=== PATIENT | female | born 1945 | race Hispanic/Latino ===

== ENCOUNTER 2017-09-28 13:01 | Inpatient (IN) | payer MEDICARE, OTHER ==
[2017-09-28] MEDS ORDERED: PEPCID IV ONE (13:50)
[2017-09-28] MEDS ORDERED: NACL 0.9% 1000 ML 1,000 ML IV ONE ×2 (13:50→18:03)
[2017-09-28] MEDS ORDERED: ZOFRAN IV ONE (13:50)
[2017-09-28] MEDS ORDERED: TORADOL IV ONE (13:50)
--- NOTE | 2017-09-28 13:52 | Emergency Department Report ---
Blank Doc - Documentation Documentation: Patient is a 72-year-old female is presented with multiple complaints. The main complaint is that for the past 3 days patient has felt weak and dizzy fatigue with diarrhea and left lower quadrant tenderness. Patient also has some dysuria and foul to her urine as well. Patient also is complaining of some left hip pain and lower back pain after a fall from the 2 days ago. Patient denies any fevers chills or vomiting. Brief physical exam patient does have so left lower quadrant tenderness as well as generalized tenderness to the lumbar spine and left hip. Patient will be moved to treatment room for IV fluids meds for symptomatic relief and the laboratory and imaging studies. She'll be reassessed. Me
[2017-09-28 14:43] LABS: Basophils # (Auto) 0.1 K/mm3 (0.0-0.1); Basophils % (Auto) 0.5 % (0.0-1.8); Eosinophils # (Auto) 0.2 K/mm3 (0.0-0.4); Eosinophils % (Auto) 1.5 % (0.0-4.3); Hematocrit 33.5 % (30.3-42.9); Hemoglobin 10.8 gm/dl (10.1-14.3); Lymphocytes # (Auto) 1.3 K/mm3 (1.2-5.4); Lymphocytes % (Auto) 11.1 % (13.4-35.0); Mean Corpuscular HGB Conc 32 % (30-34); Mean Corpuscular Hemoglobin 29 pg (28-32); Mean Corpuscular Volume 90 fl (79-97); Monocytes # (Auto) 1.2 K/mm3 (0.0-0.8); Platelet Count 263 K/mm3 (140-440); Red Blood Count 3.73 M/mm3 (3.65-5.03); Red Cell Distribution Width 13.7 % (13.2-15.2)
[2017-09-28 14:53] LABS: INR 0.96 (0.87-1.13)
[2017-09-28 14:54] LABS: Partial Thromboplastin Time 27.7 Sec. (24.2-36.6)
[2017-09-28 15:04] LABS: Albumin 3.3 g/dL (3.9-5); Calcium 9.7 mg/dL (8.4-10.2)
--- NOTE | 2017-09-28 15:07 | Cat Scan Report ---
FINAL REPORT PROCEDURE: CT ABDOMEN PELVIS WO CON TECHNIQUE: Computerized axial tomography of the abdomen and pelvis was performed without intravenous contrast. This study is performed without intravascular contrast material and its sensitivity for abdominal and pelvic pathology, including neoplasms, inflammation, abscess, free fluid, thrombosis, arterial dissection and infarction, is reduced compared with a contrast enhanced study. HISTORY: diarrhea, also fall with left hip and back pain COMPARISON: No prior studies are available for comparison. FINDINGS: Lower Lung conner: Calcifications, atherosclerosis visualized in the coronary arteries. There may be coronary artery stents in place. Correlation with prior interventional procedure history recommended. Linear bands of increased density seen in the lung bases suggesting minimal atelectasis. Lung bases otherwise are unremarkable. Upper Abdomen: Calcified granuloma seen in the liver which is otherwise unremarkable. Gallbladder is surgically absent. The adrenal glands, and the spleen are unremarkable. The pancreas appears atrophied otherwise is unremarkable. Kidneys, Ureters and Urinary bladder: Low-density nodules project from the renal cortex of the left kidney which likely represent cysts although not confirmed with this exam. These measure up to 2.3 centimeters. This could be confirmed with ultrasound clinically indicated. No hydronephrosis. Renal arterial calcifications are visualized. No definite renal calculi are seen. No ureteral calculi are seen. Urinary bladder is incompletely filled. No gross abnormality of the bladder is seen. Retroperitoneum: Atherosclerotic changes are seen in the abdominal aorta. No aneurysm is visualized. Nonspecific subcentimeter lymph nodes are seen in the retroperitoneum. No pathologically enlarged lymph nodes are identified. Bowel: No evidence of bowel obstruction or ascites. There is no free intraperitoneal gas. The jenkins of the descending colon and proximal sigmoid colon are minimally prominent. Possibly minimally thickened. I cannot exclude minimal colitis. Bowel loops otherwise are unremarkable. Small umbilical hernia containing adipose tissue is visualized. No herniated loops of bowel are seen. The appendix is not visualized. Reproductive organs: Uterus and adnexa show no focal abnormalities. Other: Mild to moderate lumbar scoliosis convex the right visualized. Moderate diffuse degenerative disc disease seen throughout the lumbar spine. Moderate facet arthritis visualized in the lower lumbar spine. No acute bone abnormalities are identified. IMPRESSION: Atherosclerosis coronary arteries. There may be coronary artery stents in place. Correlation with prior interventional procedure history recommended. Prior granulomatous disease. Mild prominence jenkins of the descending colon and proximal sigmoid colon. I cannot exclude mild nonspecific colitis. Bowel loops otherwise unremarkable. Prior cholecystectomy. Pancreas is atrophied otherwise unremarkable. Low-density nodules seen projecting from the left kidney likely representing renal cortical cysts although not confirmed by this exam. If clinically indicated renal ultrasound could be performed for further evaluation. Small umbilical hernia as described. Lumbar scoliosis, degenerative disc disease and facet arthritis as described above. No acute bony abnormalities are seen.
[2017-09-28 16:03] LABS: Bacteria,Urine 4+ /HPF (Negative); Bilirubin,Urine NEG (Negative); Blood,Urine SM (Negative); Color,Urine Yellow (Yellow); Mucus,Urine FEW /HPF; Urobilinogen,Urine < 2.0 mg/dL (<2.0); WBC,Urine > 182.0 /HPF (0.0-6.0)
--- NOTE | 2017-09-28 17:24 | XRay Report ---
FINAL REPORT PROCEDURE: XR CHEST 1V AP TECHNIQUE: Chest radiograph anteroposterior view. CPT 05869 HISTORY: elevated glucose. weak COMPARISON: No prior studies are available for comparison. FINDINGS: Heart: Normal size. Mediastinum/Vessels: Normal. Lungs/Pleural space: Right diaphragm is mildly elevated. A few linear bands of increased density seen in the lower 3rd of the left lung suggesting minimal atelectasis. No focal infiltrates masses or effusions are identified.. Bony thorax: No acute osseous abnormality. Life support devices: None. IMPRESSION: Minimal atelectasis visualized on the left. Mild elevation right diaphragm otherwise negative exam..
[2017-09-28] MEDS ORDERED: HumuLIN R IV ONE ×2 (17:38→18:50)
[2017-09-28] MEDS ORDERED: NACL 0.9% 1000 ML 1,000 ML ONE (17:55)
[2017-09-28] MEDS ORDERED: APRESOLINE IV ONE (18:50)
[2017-09-28] MEDS ORDERED: APRESOLINE ONE (18:52)
--- NOTE | 2017-09-28 18:57 | Emergency Department Report ---
- General Chief complaint: Pain General Stated complaint: GENERALIZED WEAKNESS Time Seen by Provider: 09/28/17 13:36 Source: patient, family Mode of arrival: Wheelchair Limitations: No Limitations - History of Present Illness Initial comments: 72-year-old woman presents with multiple complaints, but primarily with progressive weakness over the past couple weeks, which is generalized and which caused her to fall approximately a week ago, but with no acute injury, and no focal neurologic deficits, with weakness remaining unchanged but generally progressive. She has also had some lower abdominal pain as well, has vomited several times over the past couple days, but no particular diarrhea. Patient has felt warm, but she has not been febrile, and not flushed. She has not felt lightheaded at rest, but does occasionally get lightheaded when she changes positions. She is had decreased appetite, has not been drinking as well, and has been taking boost for the past several days in order to increase her nutrition, although up until today she had been eating fairly well, and enjoying what she ate. She is not having any chest pain, and abdominal pain is lower, and some perhaps in the left lower abdomen. Discomfort is local, moderate, aching, constant, does not appear to radiate. Past medical history significant for insulin-dependent dependent diabetes, prior hypertension, no history of lung disease, no cardiac disease, no prior strokes. Severity scale (0 -10): 6 - Related Data Home Medications Medication Instructions Recorded Confirmed Last Taken Insulin Lispro Protamin/Lispro 30 unit SQ AC 11/19/13 11/19/13 11/18/13 [HumaLOG Mix 75-25 Kwikpen] Metoprolol [Lopressor TAB] 25 mg PO DAILY 11/19/13 11/19/13 11/18/13 Olmesartan/Hydrochlorothiazide 1 tab PO QDAY 11/19/13 11/19/13 11/18/13 [Benicar HCT 20-12.5 mg] Ranolazine [Ranexa] 500 mg PO BID 11/19/13 11/19/13 11/18/13 Previous Rx's Medication Instructions Recorded Last Taken Type Aspirin EC [Aspirin Enteric Coated 325 mg PO QDAY #30 tablet 11/19/13 Unknown Rx TAB] Sulfamethoxazole/Trimethoprim 1 each PO BID #14 tablet 03/06/15 Unknown Rx [Bactrim DS TAB] Allergies Allergy/AdvReac Type Severity Reaction Status Date / Time cephalexin monohydrate Allergy Swelling Verified 03/06/15 12:17 [From Keflex] codeine Allergy Vomiting Verified 03/06/15 12:17 all narcotics Allergy Vomiting Uncoded 03/06/15 12:17 Contrast Dye AdvReac Swelling Uncoded 09/28/17 13:19 ED Review of Systems ROS: Stated complaint: GENERALIZED WEAKNESS Other details as noted in HPI Comment: All other systems reviewed and negative Constitutional: diaphoresis, weakness. denies: chills (questionable), fever Respiratory: denies: cough, orthopnea, shortness of breath Cardiovascular: denies: chest pain Endocrine: increased urine. denies: excessive sweating, increased hunger ( decreased), increased thirst Gastrointestinal: abdominal pain (lower abdomen), nausea, vomiting (today). denies: diarrhea Genitourinary: frequency Musculoskeletal: back pain Skin: denies: rash, change in color Neurological: headache, weakness, other (diabetic neuropathy, lower extremities , chronic). denies: numbness, paresthesias Psychiatric: denies: anxiety, depression, suicidal thoughts Hematological/Lymphatic: denies: easy bleeding, easy bruising ED Past Medical Hx - Past Medical History Hx Hypertension: Yes Hx Congestive Heart Failure: No Hx Diabetes: Yes Hx Asthma: Yes Hx COPD: No Additional medical history: CHARCOT'S DISEASE - Surgical History Hx Cholecystectomy: Yes Hx Appendectomy: Yes Additional Surgical History: tubal ligation bilat carpal tunnel back/neck surgery eye surgery foot surgery - Social History Smoking Status: Never Smoker Substance Use Type: None - Medications Home Medications: Home Medications Medication Instructions Recorded Confirmed Last Taken Type Aspirin EC [Aspirin Enteric Coated 325 mg PO QDAY #30 tablet 11/19/13 Unknown Rx TAB] Insulin Lispro Protamin/Lispro 30 unit SQ AC 11/19/13 11/19/13 11/18/13 History [HumaLOG Mix 75-25 Kwikpen] Metoprolol [Lopressor TAB] 25 mg PO DAILY 11/19/13 11/19/13 11/18/13 History Olmesartan/Hydrochlorothiazide 1 tab PO QDAY 11/19/13 11/19/13 11/18/13 History [Benicar HCT 20-12.5 mg] Ranolazine [Ranexa] 500 mg PO BID 11/19/13 11/19/13 11/18/13 History Sulfamethoxazole/Trimethoprim 1 each PO BID #14 tablet 03/06/15 Unknown Rx [Bactrim DS TAB] ED Physical Exam - General Limitations: No Limitations General appearance: alert, in no apparent distress - Head Head exam: Present: atraumatic, normocephalic - Eye Eye exam: Present: PERRL, EOMI - ENT ENT exam: Present: mucous membranes dry - Neck Neck exam: Present: normal inspection. Absent: tenderness - Respiratory Respiratory exam: Present: normal lung sounds bilaterally. Absent: rales, rhonchi - Cardiovascular Cardiovascular Exam: Present: regular rate, normal heart sounds - GI/Abdominal GI/Abdominal exam: Present: soft, tenderness (moderate, general to palpation, mildly localized, left lower quadrant), normal bowel sounds, other (obese, somewhat pendulous abdomen). Absent: guarding, rebound - Rectal Rectal exam: Present: deferred - Extremities Exam Extremities exam: Present: normal inspection, full ROM. Absent: pedal edema - Neurological Exam Neurological exam: Present: alert, oriented X3, CN II-XII intact, other (normal finger to nose). Absent: motor sensory deficit - Psychiatric Psychiatric exam: Present: normal affect, normal mood - Skin Skin exam: Present: warm, dry - Level of Consciousness 1a. Level of Consciousness: alert - LOC Questions 1b. LOC Questions: answers correctly - LOC Command 1c. LOC Commands: performs tasks correctly - Best Gaze 2. Best Gaze: normal - Visual 3. Visual: no visual loss - Facial Palsy 4. Facial Palsy: normal symmetrical movement - Motor Arm 5b. Motor Arm Right: no drift 5a. Motor Arm Left: no drift - Motor Leg 6a. Motor Leg Left: no drift 6b. Motor Leg Right: no drift - Limb Ataxia 7. Limb Ataxia: absent - Sensory 8. Sensory: normal - Best Language 9. Best Language: no aphasia - Dysarthria 10. Dysarthria: normal - Extinction and Inattention 11. Extinction/Inattention: no abnormality - Scoring Total Score: 0 Stroke Severity: No Stroke Symptoms ED Course Vital Signs 09/28/17 09/28/17 09/28/17 13:19 15:13 18:57 Temperature 36.9 C 36.7 C 36.6 C Pulse Rate 94 H 81 92 H Respiratory 16 16 18 Rate Blood Pressure 172/66 Blood Pressure 167/59 190/70 [Left] O2 Sat by Pulse 98 98 98 Oximetry ED Medical Decision Making - Lab Data Result diagrams: 09/28/17 13:49 09/28/17 13:49 - Medical Decision Making Patient has uncontrolled hyperglycemia, with a glucose of 792, and significant urinary tract infection with pyuria with clumping, as well as positive bacteria , and with secondary compensatory changes on laboratory evaluations, and moderately elevated lactate level, suggestive of urinary tract infection, and also early signs of sepsis with elevated lactate level. She is not acidotic, has a stable bicarbonate, the clon hospitalization for treatment of her acute infection, and stabilization of her severe hyperglycemia. Patient was treated with IV fluids, this did little to bring her sugar down, and on recheck was 750 , and insulin given by IV bolus, and plans were made to admit patient. - Differential Diagnosis hyperglycemia, sepsis, metabolic abnormality Critical Care Time: Yes Critical care attestation.: If time is entered above; I have spent that time in minutes in the direct care of this critically ill patient, excluding procedure time. Critical Care Time: 60 minutes of critical care time was provided in assessing and stabilizing this patient with severe hyperglycemia, significant findings of urinary tract infection, and early signs of sepsis with elevated white count, IV fluid for hydration, initiation of emergency intravenous insulin, and plans for admission. No billable procedures were performed during this encounter ED Disposition Clinical Impression: Hyperglycemia due to type 2 diabetes mellitus, Urinary tract infection, Sepsis Disposition: OP ADMIT IP TO THIS HOSP Is pt being admited?: Yes Does the pt Need Aspirin: No Condition: Stable Instructions: Diabetes Mellitus Type 2 in Adults (ED) Referrals: PRIMARY MD WILBER [Primary Care Provider] - 3-5 Days Time of Disposition: 19:10
[2017-09-28] MEDS ORDERED: ZOSYN/NS 4.5GM/100ML 4.5 GM/100 ML VIAL IV SCH (19:00)
[2017-09-28 19:31] LABS: Calcium 9.7 mg/dL (8.4-10.2)
[2017-09-28] MEDS ORDERED: D50W (25GM) Syringe IV PRN ×2 (20:48→22:18)
[2017-09-28] MEDS ORDERED: HumuLIN R 100 UNITS in NACL 0.9% 99 ML IV SCH ×2 (21:00→23:00)
[2017-09-28 21:40] LABS: Calcium 9.7 mg/dL (8.4-10.2)
[2017-09-28] MEDS: NACL 0.9% 1000 ML 1,000 ML IV SCH (21:47)
[2017-09-28] MEDS ORDERED: SODIUM CHLORIDE FLUSH SYRINGE 10 ML IV PRN (22:16)
[2017-09-28] MEDS ORDERED: ZOFRAN IV PRN (22:16)
[2017-09-28] MEDS ORDERED: MORPHINE IV PRN (22:16)
[2017-09-28] MEDS ORDERED: PHENERGAN PR PRN (22:16)
--- NOTE | 2017-09-28 22:22 | Event Note ---
Date: 09/28/17 See dictated history and physical in the report section Hyperosmolar nonketotic state in diabetes Urinary tract infection Noncompliance
[2017-09-28] MEDS ORDERED: KCL 10MEQ/100ML 10 MEQ/100 ML BAG IV SCH ×2 (23:00)
[2017-09-28] MEDS ORDERED: D5W/0.45% NACL/KCL 20 MEQ 20 MEQ/1,000 ML BAG IV SCH (23:00)
--- NOTE | 2017-09-28 23:49 | History and Physical Report ---
CHIEF COMPLAINT: Generalized weakness and pain all over, 2 weeks. HISTORY OF PRESENT ILLNESS: A 72-year-old female presents with weakness over the past couple of weeks, which is generalized and caused her to fall. No acute injury. The patient has been feeling very weak and also lower abdominal pain. Vomited several times over the past couple of days and no diarrhea. The patient also has decreased appetite and not taking her insulin regularly. No chest pain, no shortness of breath. No recent travel. In summary, the patient has progressive weakness and vomiting for the last couple of days and decreased appetite. PAST MEDICAL HISTORY: Significant for insulin-dependent diabetes, hypertension. Also, asthma, Charcot disease. PAST SURGICAL HISTORY: Appendectomy, tubal ligation, bilateral carpal tunnel surgery, eye surgery and foot surgery. SOCIAL HISTORY: Does not smoke. No alcohol, no recreational drugs. FAMILY HISTORY: Significant for hypertension. REVIEW OF SYSTEMS: Significant for feeling weak and vomiting several times and has 1 fall. Otherwise, review of systems unremarkable. The patient also has dysuria and suprapubic discomfort. PHYSICAL EXAMINATION: GENERAL: On examination, elderly female, cooperative during examination. Alert and oriented. VITAL SIGNS: Blood pressure is 167/59, temperature is 98.4, pulse is 94, and respirations are 16. HEENT: Unremarkable except for dry mucous membranes. NECK: Supple, no lymphadenopathy, no thyromegaly. LUNGS: Clear to auscultation and percussion. Good air entry. CARDIOVASCULAR: S1, S2 heard. No gallop, no murmur, no rub. Apical impulse in left fifth intercostal space and midclavicular line. ABDOMEN: Slightly tender over the suprapubic region. Otherwise, normal bowel sounds. No guarding, no rigidity. Hernial orifices are normal. EXTREMITIES: Good pedal pulses. No pedal edema. CENTRAL NERVOUS SYSTEM: Alert and oriented x 4, nonfocal exam. LABORATORY DATA: Significant for white count of 12,000, H and H are 10.8 and 33.5, and platelet count is 263,000. Sodium is 124, BUN and creatinine are 46 and 1.3, potassium is 4.7, chloride is 83.6, and glucose is 792. Hemoglobin A1c is 9.1, magnesium is 2.2, slightly low; and albumin is 3.3, slightly low. Urine shows more than 182 cells. Abdominal CAT scan shows atherosclerosis and mild prominent jenkins of the descending colon and proximal sigmoid colon, may be nonspecific colitis. Prior cholecystectomy. Pancreas is atrophied, otherwise unremarkable. Low density nodules projecting from the left kidney, likely representing renal cortical cysts. Small umbilical hernia, lumbar scoliosis and degenerative disk disease. ASSESSMENT AND PLAN: 1. Hyperosmolar nonketotic state and diabetes. The patient started on IV insulin, IV fluids, frequent Accu-Cheks. Monitor glucose closely. The patient is kept n.p.o. 2. Hypertension. Continue metoprolol and Benicar. 3. Hyponatremia secondary to high blood glucose levels, should correct with IV fluids and correction of the blood glucose levels. 4. Acute kidney injury secondary to volume depletion. The patient is getting IV fluids. BUN and creatinine should cut back to normal with IV fluids. Nephrology consult if necessary. At this point, it is not necessary. Lactic acid level is normal. 5. Urinary tract infection. The patient has severe acute cystitis and possible bacteremia. The patient initiated on IV Rocephin 2 gm IV piggyback q.24 hours pending cultures. 6. Hyperkalemia, should correct with IV insulin and IV fluids. 7. Coronary artery disease. Continue aspirin. 8. Deep venous thrombosis prophylaxis, heparin 5000 q.12 hours. CRITICAL CARE STATEMENT: The high probability of a clinically significant sudden or life-threatening deterioration of the pulmonary, cardiac and renal systems required my full and direct attention, intervention, and personal management. The aggregate critical care time was 45 minutes. This time is in addition to time spent performing reported procedures, but includes the followin. Data review and interpretation. 2. The patient assessment and monitoring of vital signs. 3. Documentation. 4. Medication orders and management. JOB# [id number] JOSE LUIS/SWEETIE
[2017-09-29 00:17] LABS: Calcium 9.7 mg/dL (8.4-10.2)
[2017-09-29] MEDS: NACL 0.9% 1000 ML 1,000 ML IV SCH (00:42)
[2017-09-29 00:54] LABS: Calcium 9.5 mg/dL (8.4-10.2)
[2017-09-29] MEDS ORDERED: APRESOLINE IV PRN (02:55)
[2017-09-29 04:36] LABS: Calcium 9.4 mg/dL (8.4-10.2)
--- NOTE | 2017-09-29 08:34 | Consultation ---
History of Present Illness Consult date: 09/29/17 Requesting physician: CALE DUNN Reason for consult: other (Hyperosmolar non-ketotic state on insulin infusion, UTI with lactic acidosis) History of present illness: 72-year-old woman presents with multiple complaints, but primarily with progressive weakness over the past couple weeks, which is generalized and which caused her to fall approximately a week ago, but with no acute injury, and no focal neurologic deficits, with weakness remaining unchanged but generally progressive. She has also had some lower abdominal pain as well, has vomited several times over the past couple days, but no particular diarrhea. Patient has felt warm, but she has not been febrile, and not flushed. She has not felt lightheaded at rest, but does occasionally get lightheaded when she changes positions. She is had decreased appetite, has not been drinking as well. She is not having any chest pain, and abdominal pain is lower, and some perhaps in the left lower abdomen. She was noted to have diabetic ketoacidosis and UTI. She was admitted to the ICU on an insulin infusion. We have been consulted for critical care. Patient was seen and examined. Vitals, labs, medications, chart were reviewed. She feels better, still has some nausea and is currently on 2units of insulin with her last accucheck of 160. Anion gap is 12. Patient was discussed in ICU-IDT rounds. Review of systems Comment: All other systems reviewed and negative Constitutional: diaphoresis, weakness. denies: chills (questionable), fever Respiratory: denies: cough, orthopnea, shortness of breath Cardiovascular: denies: chest pain Endocrine: increased urine. denies: excessive sweating, increased hunger ( decreased), increased thirst Gastrointestinal: abdominal pain (lower abdomen), nausea, vomiting (today). denies: diarrhea Genitourinary: frequency Musculoskeletal: back pain Skin: denies: rash, change in color Neurological: headache, weakness, other (diabetic neuropathy, lower extremities , chronic). denies: numbness, paresthesias Psychiatric: denies: anxiety, depression, suicidal thoughts Hematological/Lymphatic: denies: easy bleeding, easy bruising Past History Past Medical History: diabetes, hypertension Past Surgical History: Other (Spinal fusion surgery) Social history: lives with family (grandson), other (does not smoke or drink alcohol) Medications and Allergies Allergies Allergy/AdvReac Type Severity Reaction Status Date / Time cephalexin monohydrate Allergy Swelling Verified 03/06/15 12:17 [From Keflex] codeine Allergy Vomiting Verified 03/06/15 12:17 all narcotics Allergy Vomiting Uncoded 03/06/15 12:17 Contrast Dye AdvReac Swelling Uncoded 09/28/17 13:19 Home Medications Medication Instructions Recorded Confirmed Last Taken Type Metoprolol [Lopressor TAB] 25 mg PO DAILY 11/19/13 09/28/17 11/18/13 History Ranolazine [Ranexa] 500 mg PO BID 11/19/13 09/28/17 11/18/13 History Aspirin EC [Aspirin Enteric Coated 325 mg PO DAILY 09/28/17 09/28/17 Unknown History TAB] Insulin Lispro Protamin/Lispro 30 units SQ AC 09/28/17 09/28/17 Unknown History [HumaLOG Mix 75-25 Kwikpen] Olmesartan/Hydrochlorothiazide 1 mg PO DAILY 09/28/17 09/28/17 Unknown History [Benicar HCT 20-12.5 mg] Active Meds: Active Medications Acetaminophen (Tylenol) 650 mg PO Q4H PRN PRN Reason: Pain MILD(1-3)/Fever >100.5/BROWN Dextrose (D50w (25gm) Syringe) 0 ml IV PRN PRN PRN Reason: Hypoglycemia Heparin Sodium (Porcine) (Heparin) 5,000 unit SUB-Q Q12HR LORENA Last Admin: 09/29/17 00:00 Dose: 5,000 unit Hydralazine HCl (Apresoline) 5 mg IV Q6HR PRN PRN Reason: b/p Sodium Chloride (Nacl 0.9% 1000 Ml) 1,000 mls @ 250 mls/hr IV DIRECT LORENA Last Admin: 09/29/17 00:42 Dose: 250 mls/hr Potassium Chloride/Dextrose/Sod Cl (D5w/0.45% Nacl/Kcl 20 Meq) 20 meq in 1,000 mls @ 125 mls/hr IV DIRECT LORENA Last Admin: 09/29/17 01:57 Dose: 125 mls/hr Insulin Human Regular 100 (units/ Sodium Chloride) 100 mls @ 1 mls/hr IV TITR LORENA; Protocol Last Titration: 09/29/17 07:00 Dose: 2.5 units/hr, 2.5 mls/hr Levofloxacin/Dextrose (Levaquin 250mg/50ml) 250 mg in 50 mls @ 50 mls/hr IV Q24HR LORENA Morphine Sulfate (Morphine) 2 mg IV Q4H PRN PRN Reason: Pain, Moderate (4-6) Ondansetron HCl (Zofran) 4 mg IV Q8H PRN PRN Reason: Nausea And Vomiting Promethazine HCl (Phenergan) 25 mg WV Q6H PRN PRN Reason: N/V IF NPO AND NO IV ACCESS Sodium Chloride (Sodium Chloride Flush Syringe 10 Ml) 10 ml IV BID LORENA Sodium Chloride (Sodium Chloride Flush Syringe 10 Ml) 10 ml IV PRN PRN PRN Reason: LINE FLUSH Physical Examination Vital signs: Vital Signs Temp Pulse Resp BP Pulse Ox 98.4 F 94 H 16 172/66 98 09/28/17 13:19 09/28/17 13:19 09/28/17 13:19 09/28/17 13:19 09/28/17 13:19 Results - Laboratory Findings CBC and BMP: 09/28/17 13:49 09/29/17 13:31 PT/INR, D-dimer PT 13.3 Sec. (12.2-14.9) 09/28/17 13:49 INR 0.96 (0.87-1.13) 09/28/17 13:49 Abnormal lab findings: Abnormal Labs 09/28/17 09/28/17 09/28/17 13:49 13:49 14:35 WBC 12.0 H Lymph % (Auto) 11.1 L [place] % (Auto) 10.0 H Al[place]alfa # 1.2 H Seg Neutrophils % 76.9 H Seg Neutrophils # 9.2 H Sodium 124 L Potassium Chloride 83.6 L BUN 46 H Creatinine 1.3 H Glucose 792 H* POC Glucose Hemoglobin A1c 9.1 H Phosphorus Albumin 3.3 L Urine WBC (Auto) 09/28/17 09/28/17 09/28/17 17:52 17:55 21:08 WBC Lymph % (Auto) [place]alfa % (Auto) Al[place]alfa # Seg Neutrophils % Seg Neutrophils # Sodium 125 L Potassium 5.4 H Chloride 83.4 L BUN 47 H Creatinine 1.3 H Glucose 797 H* POC Glucose > 500 H Hemoglobin A1c Phosphorus 2.20 L Albumin Urine WBC (Auto) 09/28/17 09/28/17 09/28/17 21:08 22:40 23:09 WBC Lymph % (Auto) [place]alfa % (Auto) Al[place]alfa # Seg Neutrophils % Seg Neutrophils # Sodium 135 L D 136 L Potassium Chloride 94.8 L 97.3 L BUN 42 H 39 H Creatinine Glucose 377 H 281 H POC Glucose 316 H Hemoglobin A1c Phosphorus 1.90 L Albumin Urine WBC (Auto) 09/28/17 09/28/17 09/29/17 23:47 Unknown 00:25 WBC Lymph % (Auto) [place]alfa % (Auto) Al[place]alfa # Seg Neutrophils % Seg Neutrophils # Sodium 135 L Potassium 3.5 L Chloride 96.6 L BUN 38 H Creatinine Glucose 184 H POC Glucose 288 H Hemoglobin A1c Phosphorus Albumin Urine WBC (Auto) > 182.0 H 09/29/17 09/29/17 09/29/17 01:16 02:13 03:19 WBC Lymph % (Auto) Al[place]alfa % (Auto) Alfalfa # Seg Neutrophils % Seg Neutrophils # Sodium Potassium Chloride BUN Creatinine Glucose POC Glucose 198 H 119 H 117 H Hemoglobin A1c Phosphorus Albumin Urine WBC (Auto) 09/29/17 09/29/17 09/29/17 03:37 04:40 05:09 WBC Lymph % (Auto) [place]alfa % (Auto) Al[place]alfa # Seg Neutrophils % Seg Neutrophils # Sodium Potassium Chloride BUN 35 H Creatinine Glucose 107 H POC Glucose 149 H 177 H Hemoglobin A1c Phosphorus Albumin Urine WBC (Auto) 09/29/17 09/29/17 06:28 07:08 WBC Lymph % (Auto) Alfalfa % (Auto) Alfalfa # Seg Neutrophils % Seg Neutrophils # Sodium Potassium Chloride BUN Creatinine Glucose POC Glucose 164 H 173 H Hemoglobin A1c Phosphorus Albumin Urine WBC (Auto) - Diagnostic Findings Chest x-ray: image reviewed (Left lung atelectasis) Assessment and Plan UTI Hyperosmolar non ketotic state Type 2 DM requiring insulin, poorly controlled HbA1C 9 Morbid obesity Atelectasis
[2017-09-29 08:50] LABS: Calcium 9.5 mg/dL (8.4-10.2)
[2017-09-29] MEDS: HumaLOG SUB-Q SCH ×4 (09:00→22:40)
[2017-09-29] MEDS ORDERED: ROCEPHIN/NS 2 GM/100 ML 2 GM/100 ML BAG IV SCH (10:00)
[2017-09-29] MEDS ORDERED: LEVAQUIN 250MG/50ML 250 MG/50 ML BAG IV SCH (10:00)
[2017-09-29] MEDS: LEVAQUIN PO SCH (10:40)
[2017-09-29] MEDS: HEPARIN SUB-Q SCH ×3 (10:40→22:40)
[2017-09-29] MEDS: SODIUM CHLORIDE FLUSH SYRINGE 10 ML IV SCH ×2 (10:43→22:40)
[2017-09-29] MEDS: TYLENOL PO PRN ×2 (10:43→22:44)
[2017-09-29 14:49] LABS: Calcium 9.4 mg/dL (8.4-10.2)
--- NOTE | 2017-09-29 14:51 | Progress Note ---
Assessment and Plan Assessment and plan: 72F who pw weakness x 1 week, so weak that she fell, lower abdominal pain, poor po intake, admitted non adherence with insulin UTI Continue abx, fup urine cx HHNK/ uncontrolled type 2 iddm a1c 9.4 Sp insulin gtt, now back on sq insulins HTN Hold haydee and hct, given chandrika Hyponatremia, Hyperkalemia continue IVF and insulins, improved CHANDRIKA-vasomotor nephropathy Improving with IVF fluids CAD Resume ranexa and metoprolol History Interval history: she denies sob, fever or chills no n/v/d suprapubic pain is resolved fatigue is improved Hospitalist Physical - Constitutional Vitals: Temp Pulse Resp BP Pulse Ox 99.1 F 102 H 16 119/97 98 09/29/17 12:00 09/29/17 13:01 09/29/17 13:01 09/29/17 13:01 09/29/17 13:01 General appearance: Present: no acute distress - EENT Eyes: Present: PERRL ENT: hearing intact - Neck Neck: Present: supple - Respiratory Respiratory effort: normal Respiratory: bilateral: CTA - Cardiovascular Rhythm: regular Heart Sounds: Present: S1 & S2 - Extremities Extremities: no ischemia, No edema Peripheral Pulses: within normal limits - Abdominal General gastrointestinal: soft, non-tender - Integumentary Integumentary: Present: clear, warm, dry - Psychiatric Psychiatric: appropriate mood/affect, intact judgment & insight - Neurologic Neurologic: CNII-XII intact, moves all extremities Results - Labs CBC & Chem 7: 09/28/17 13:49 09/29/17 21:09 Labs: Laboratory Last Values WBC 12.0 K/mm3 (4.5-11.0) H 09/28/17 13:49 RBC 3.73 M/mm3 (3.65-5.03) 09/28/17 13:49 Hgb 10.8 gm/dl (10.1-14.3) 09/28/17 13:49 Hct 33.5 % (30.3-42.9) 09/28/17 13:49 MCV 90 fl (79-97) 09/28/17 13:49 MCH 29 pg (28-32) 09/28/17 13:49 MCHC 32 % (30-34) 09/28/17 13:49 RDW 13.7 % (13.2-15.2) 09/28/17 13:49 Plt Count 263 K/mm3 (140-440) 09/28/17 13:49 Lymph % (Auto) 11.1 % (13.4-35.0) L 09/28/17 13:49 [place] % (Auto) 10.0 % (0.0-7.3) H 09/28/17 13:49 Eos % (Auto) 1.5 % (0.0-4.3) 09/28/17 13:49 Baso % (Auto) 0.5 % (0.0-1.8) 09/28/17 13:49 Lymph # 1.3 K/mm3 (1.2-5.4) 09/28/17 13:49 [place] # 1.2 K/mm3 (0.0-0.8) H 09/28/17 13:49 Eos # 0.2 K/mm3 (0.0-0.4) 09/28/17 13:49 Baso # 0.1 K/mm3 (0.0-0.1) 09/28/17 13:49 Seg Neutrophils % 76.9 % (40.0-70.0) H 09/28/17 13:49 Seg Neutrophils # 9.2 K/mm3 (1.8-7.7) H 09/28/17 13:49 PT 13.3 Sec. (12.2-14.9) 09/28/17 13:49 INR 0.96 (0.87-1.13) 09/28/17 13:49 APTT 27.7 Sec. (24.2-36.6) 09/28/17 13:49 Sodium 135 mmol/L (137-145) L 09/29/17 13:31 Potassium 4.4 mmol/L (3.6-5.0) 09/29/17 13:31 Chloride 98.1 mmol/L (98-107) 09/29/17 13:31 Carbon Dioxide 21 mmol/L (22-30) L 09/29/17 13:31 Anion Gap 20 mmol/L 09/29/17 13:31 BUN 28 mg/dL (7-17) H 09/29/17 13:31 Creatinine 1.2 mg/dL (0.7-1.2) 09/29/17 13:31 Estimated GFR 44 ml/min 09/29/17 13:31 BUN/Creatinine Ratio 23 % 09/29/17 13:31 Glucose 174 mg/dL (65-100) H 09/29/17 13:31 POC Glucose 196 (70-105) H 09/29/17 11:22 Hemoglobin A1c 9.1 % (4-6) H 09/28/17 14:35 Lactic Acid 1.40 mmol/L (0.7-2.0) 09/28/17 16:58 Calcium 9.4 mg/dL (8.4-10.2) 09/29/17 13:31 Phosphorus 1.90 mg/dL (2.5-4.5) L 09/28/17 23:09 Magnesium 2.00 mg/dL (1.7-2.3) 09/28/17 23:09 Total Bilirubin 0.20 mg/dL (0.1-1.2) 09/28/17 13:49 AST 13 units/L (5-40) 09/28/17 13:49 ALT 13 units/L (7-56) 09/28/17 13:49 Alkaline Phosphatase 93 units/L (35-129) 09/28/17 13:49 Troponin T 0.016 ng/mL (0.00-0.029) 09/28/17 13:49 NT-Pro-B Natriuret Pep 818.6 pg/mL (0-900) 09/28/17 13:49 Total Protein 7.7 g/dL (6.3-8.2) 09/28/17 13:49 Albumin 3.3 g/dL (3.9-5) L 09/28/17 13:49 Albumin/Globulin Ratio 0.8 % 09/28/17 13:49 Urine Color Yellow (Yellow) 09/28/17 Unknown Urine Turbidity Clear (Clear) 09/28/17 Unknown Urine pH 5.0 (5.0-7.0) 09/28/17 Unknown Ur Specific [place] 1.018 (1.003-1.030) 09/28/17 Unknown Urine Protein 100 mg/dl mg/dL (Negative) 09/28/17 Unknown Urine Glucose (UA) >=500 mg/dL (Negative) 09/28/17 Unknown Urine Ketones Neg mg/dL (Negative) 09/28/17 Unknown Urine Blood Sm (Negative) 09/28/17 Unknown Urine Nitrite Neg (Negative) 09/28/17 Unknown Urine Bilirubin Neg (Negative) 09/28/17 Unknown Urine Urobilinogen < 2.0 mg/dL (<2.0) 09/28/17 Unknown Ur Leukocyte Esterase Lg (Negative) 09/28/17 Unknown Urine WBC (Auto) > 182.0 /HPF (0.0-6.0) H 09/28/17 Unknown Urine RBC (Auto) 6.0 /HPF (0.0-6.0) 09/28/17 Unknown U Epithel Cells (Auto) 1.0 /HPF (0-13.0) 09/28/17 Unknown Urine Bacteria (Auto) 4+ /HPF (Negative) 09/28/17 Unknown Urine WBC Clumps 3+ /HPF 09/28/17 Unknown Urine Mucus Few /HPF 09/28/17 Unknown
[2017-09-29 21:47] LABS: Calcium 9.6 mg/dL (8.4-10.2)
[2017-09-30] MEDS: TYLENOL PO PRN (04:03)
[2017-09-30] MEDS: HumaLOG SUB-Q SCH ×2 (07:36→12:07)
[2017-09-30] MEDS: LEVAQUIN PO SCH (09:08)
[2017-09-30] MEDS: HEPARIN SUB-Q SCH (09:08)
[2017-09-30 09:36] VITALS: BP 95/55
[2017-09-30] MEDS ORDERED: RANEXA ER PO SCH (10:00)
[2017-09-30] MEDS ORDERED: ECOTRIN PO SCH (10:00)
[2017-09-30] MEDS ORDERED: LOPRESSOR PO SCH (10:00)
--- NOTE | 2017-09-30 11:28 | Discharge Summary ---
Providers - Providers Date of Admission: 09/28/17 19:12 Date of discharge: 09/30/17 Attending physician: AMA CUMMINS 09/28/17 19:54 Consult to Physician [CONS] Routine Comment: I spoke with Dr. Triplett at 1950 Consulting Provider: JANELL TRIPLETT Physician Instructions: Reason For Exam: CCU admit 09/28/17 20:48 Consult to Case Management [CONS] Routine Services Needed at Discharge: Home Health Services Notified:: Do Phone number called:: spoke Was contact made?: Yes If yes, spoke with:: Do Time called:: 10:14 09/28/17 22:18 Consult to Dietitian/Nutrition [CONS] Routine Physician Instructions: Reason For Exam: DKA Reason for Consult: Nutrition Recommendations Reason for Consult: Diet education 09/29/17 08:51 Physical Therapy Evaluation and Treat [CONS] Routine Comment: Reason For Exam: weakness, deconditioning Primary care physician: STILL CLEANER Hospitalization Reason for admission: Hypoosmolar nonketotic diabetic state, T2DM,UTI Condition: Stable Pertinent studies: CT scan of the abdomen and pelvis that showed evidence of arteriosclerotic heart disease, possible colitis Procedures: none Hospital course: 72-year-old woman presents with multiple complaints, but primarily with progressive weakness over the past couple weeks, which is generalized and which caused her to fall approximately a week ago, but with no acute injury, and no focal neurologic deficits, with weakness remaining unchanged but generally progressive. She has also had some lower abdominal pain as well, has vomited several times over the past couple days, but no particular diarrhea. Patient has felt warm, but she has not been febrile, and not flushed. She has not felt lightheaded at rest, but does occasionally get lightheaded when she changes positions. She is had decreased appetite, has not been drinking as well. She is not having any chest pain, and abdominal pain is lower, and some perhaps in the left lower abdomen. She was noted to have diabetic ketoacidosis and UTI. She was admitted to the ICU on an insulin infusion. On admission patient was continued on insulin drip, blood pressure optimized with metoprolol and Benicar as well as ACEIs. Was given normal saline infusion. Hyponatremia improving. Acute Kidney injury which was from volume depletion improved. She was treated with IV Rocephin for a urinary Infection. Hyperkalemia improved, coronary artery disease was treated with aspirin and beta blockers. Blood sugar improved from 288 to 189. No abdominal pain resolved. Patient is ever been discharged to follow up with primary care physician in 3-5 days, will continue to monitor her lower abdominal pain. Had a colonoscopy if patient has not had one in recent times as well as continue to monitor cardiac status with stress test and possibly echocardiogram. This was explained to the patient was breast nondistended Disposition: DC- TO HOME OR SELFCARE Time spent for discharge: 38 minutes - Discharge Diagnoses (1) Hyperglycemia due to type 2 diabetes mellitus Status: Acute (2) Urinary tract infection Status: Acute (3) Diabetes 1.5, managed as type 2 Status: Acute Core Measure Documentation - Palliative Care Palliative Care/ Comfort Measures: Not Applicable - Core Measures Any of the following diagnoses?: none Exam - Physical Exam Narrative exam: Constitutional: Well-nourished well-developed. In no distress Head: Normocephalic atraumatic Eyes: Pupils are equal round and reactive to light Nose: No enlarged turbinates, no septal deviation. Mouth: Moist mucous membranes. Neck: Supple no thyromegaly. No bruit. No JVD Heart: Regular rate and rhythm, S1-S2 abnormal. No rubs murmurs or gallop Lungs: Clear to auscultation bilaterally no rales or rhonchi Abdomen: Soft, nontender. Bowel sound are present. Extremities: No edema no cyanosis and no clubbing. Neuro: Alert oriented Oriented x3. No focal sensory or motor deficit. Skin: No rashes no hyperemic spots Psychiatry: Euthymic. Calm. - Constitutional Vitals: Temp Pulse Resp BP Pulse Ox 98.8 F 92 H 18 95/55 94 09/30/17 08:11 09/30/17 09:55 09/30/17 08:11 09/30/17 09:10 09/30/17 09:55 Plan Activity: advance as tolerated, fall precautions Weight Bearing Status: Weight Bear as Tolerated Diet: diabetic Follow up with: PRIMARY CARE, [Primary Care Provider] - 3-5 Days Prescriptions: Acetaminophen [Acetaminophen TAB] 650 mg PO Q4H PRN #30 tablet PRN Reason: Pain MILD(1-3)/Fever >100.5/BROWN Insulin Lispro Protamin/Lispro [HumaLOG Mix 75-25 Kwikpen] 20 units SQ BID #3 insuln.pen Levofloxacin [Levaquin TAB] 250 mg PO Q24HR #3 tablet Metoprolol [Lopressor TAB] 25 mg PO DAILY #30 tablet Olmesartan/Hydrochlorothiazide [Benicar HCT 20-12.5 mg] 1 mg PO DAILY #30 tablet Ranolazine [Ranexa] 500 mg PO BID #60 tab.er.12h
== END 2017-09-30 13:00 | disposition home health service (06) | DRG 871 ==
LOC: ED 13:01 → CC1 19:12 → 2B-ACE 09-29 15:45
PROVIDERS: ADMIT Internal Medicine; ATTEND Family Medicine
DX: A41.9 Sepsis, unspecified organism (principal); E11.00 Type 2 diabetes mellitus with hyperosmolarity without nonketotic hyperglycemic-hyperosmolar coma (NKHHC); N17.0 Acute kidney failure with tubular necrosis; N39.0 Urinary tract infection, site not specified; E87.1 Hypo-osmolality and hyponatremia; J98.11 Atelectasis; E11.65 Type 2 diabetes mellitus with hyperglycemia; I10 Essential (primary) hypertension; E87.5 Hyperkalemia; E66.01 Morbid (severe) obesity due to excess calories; J44.9 Chronic obstructive pulmonary disease, unspecified; I25.10 Atherosclerotic heart disease of native coronary artery without angina pectoris; Z88.5 Allergy status to narcotic agent; Z91.041 Radiographic dye allergy status; Z79.4 Long term (current) use of insulin; Z79.899 Other long term (current) drug therapy; Z68.33 Body mass index [BMI] 33.0-33.9, adult; Z91.19 Patient's noncompliance with other medical treatment and regimen; Z90.49 Acquired absence of other specified parts of digestive tract; Z98.51 Tubal ligation status
CPT/HCPCS: 36415; 71045; 74176; 80048; 80053; 81001; 82140; 82962; 83036; 83735; 83880; 84100; 84484; 85025; 85610; 85730; 87040; 87076; 87086; 87186; G8978-GP; G8979-GP; J0360; J1644; J1815; J1885; J2405; J2543; J7030

== ENCOUNTER 2018-12-21 08:34 | Inpatient (IN) | payer MEDICARE ==
[2018-12-21] MEDS ORDERED: INSULIN REGULAR, HUMAN 100 UNITS/1 ML IV ONE ×2 (08:49→10:41)
[2018-12-21] MEDS ORDERED: SODIUM CHLORIDE 0.9% 1000 ML 1,000 ML IV ONE ×2 (08:49→12:37)
--- NOTE | 2018-12-21 08:58 | Emergency Department Report ---
ED General Adult HPI - General Chief complaint: Hyperglycemia Stated complaint: HIGH BLOOD SUGAR Time Seen by Provider: 12/21/18 08:47 Source: EMS Mode of arrival: Stretcher Limitations: Altered Mental Status, Physical Limitation - History of Present Illness Initial comments: 73-year-old female who lives with her son presents to the Hospital complains of hyperglycemia. Patient states she took insulin 30 units in the afternoon. She cannot recall what time of day it is currently does know the year 2018 and she is at [facility]. She supposed to take her insulin 3 times a day and states she hasn't been taking it as prescribed. Patient complains of pain to bilateral legs. She complains of nausea without vomiting. Patient states he fell yesterday landing on her but actually striking her head. No LOC reported. Patient complains of a mild posterior headache. After son arrival he clarified that patient fell a week ago. - Related Data Previous Rx's Medication Instructions Recorded Last Taken Type Acetaminophen [Acetaminophen TAB] 650 mg PO Q4H PRN #30 tablet 09/30/17 Unknown Rx Insulin Lispro Protamin/Lispro 20 units SQ BID #3 insuln.pen 09/30/17 Unknown Rx [HumaLOG Mix 75-25 Kwikpen] Metoprolol [Lopressor TAB] 25 mg PO DAILY #30 tablet 09/30/17 Unknown Rx Olmesartan/Hydrochlorothiazide 1 mg PO DAILY #30 tablet 09/30/17 Unknown Rx [Benicar HCT 20-12.5 mg] Ranolazine [Ranexa] 500 mg PO BID #60 tab.er.12h 09/30/17 Unknown Rx levoFLOXacin [Levaquin TAB] 250 mg PO Q24HR #3 tablet 09/30/17 Unknown Rx Allergies Allergy/AdvReac Type Severity Reaction Status Date / Time cephalexin monohydrate Allergy Swelling Verified 03/06/15 12:17 [From Keflex] codeine Allergy Vomiting Verified 03/06/15 12:17 all narcotics Allergy Vomiting Uncoded 03/06/15 12:17 Contrast Dye AdvReac Swelling Uncoded 09/28/17 13:19 ED Review of Systems ROS: Stated complaint: HIGH BLOOD SUGAR Other details as noted in HPI Comment: All other systems reviewed and negative ED Past Medical Hx - Past Medical History Hx Hypertension: Yes Hx Congestive Heart Failure: No Hx Diabetes: Yes Hx Asthma: Yes Hx COPD: No Hx HIV: No Additional medical history: CHARCOT'S DISEASE - Surgical History Hx Cholecystectomy: Yes Hx Appendectomy: Yes Additional Surgical History: tubal ligation bilat carpal tunnel back/neck surgery eye surgery foot surgery - Social History Smoking Status: Never Smoker - Medications Home Medications: Home Medications Medication Instructions Recorded Confirmed Last Taken Type Acetaminophen [Acetaminophen TAB] 650 mg PO Q4H PRN #30 tablet 09/30/17 Unknown Rx Insulin Lispro Protamin/Lispro 20 units SQ BID #3 insuln.pen 09/30/17 Unknown Rx [HumaLOG Mix 75-25 Kwikpen] Metoprolol [Lopressor TAB] 25 mg PO DAILY #30 tablet 09/30/17 Unknown Rx Olmesartan/Hydrochlorothiazide 1 mg PO DAILY #30 tablet 09/30/17 Unknown Rx [Benicar HCT 20-12.5 mg] Ranolazine [Ranexa] 500 mg PO BID #60 tab.er.12h 09/30/17 Unknown Rx levoFLOXacin [Levaquin TAB] 250 mg PO Q24HR #3 tablet 09/30/17 Unknown Rx ED Physical Exam - General Limitations: Altered Mental Status, Physical Limitation - Other Other exam information: Gen.: No acute distress Head: Atraumatic Eyes: Normal appearance ENT: Moist mucous membranes Neck: Normal appearance, no posterior midline tenderness, no meningismus Chest: Clear to auscultation bilaterally Cardiovascular: Tachycardic regular rhythm Abdomen: Normal appearance, soft, nontender, no rebound or guarding, normal bowel sounds Back: Normal appearance, nontender Extremity: Full range of motion, normal appearance Neuro: Alert and oriented 3, clear speech, no focal motor or sensory deficit Psychiatric: Appropriate Skin: No rash ED Course Vital Signs 12/21/18 12/21/18 12/21/18 08:57 09:28 09:30 Temperature 98.8 F Pulse Rate 111 H 101 H 102 H Respiratory 20 15 14 Rate Blood Pressure Blood Pressure 209/129 [Right] O2 Sat by Pulse 97 85 Oximetry 12/21/18 12/21/18 12/21/18 10:22 10:30 10:39 Temperature Pulse Rate 109 H 110 H Respiratory 21 16 Rate Blood Pressure 253/111 Blood Pressure 179/61 [Right] O2 Sat by Pulse 92 98 Oximetry 12/21/18 12/21/18 10:46 11:00 Temperature Pulse Rate 111 H 102 H Respiratory 14 17 Rate Blood Pressure 216/119 180/66 Blood Pressure [Right] O2 Sat by Pulse 98 94 Oximetry - Reevaluation(s) Reevaluation #1: 12/21/18 10:50 Patient has some blood pressure and heart rate reduction after labetalol 10 mg. As per previous MAR patient was on the Toprol 25 mg. We do not have her med list at this time. She is provided Lopressor 5 mg IV because she would not s wallow the metoprolol 25 mg tablets. After initially insulin 10 mg IV patient's glucose still remains high. Additional IV insulin provided. Patient also received 1 L of normal saline. ED Medical Decision Making - Lab Data Result diagrams: 12/21/18 09:24 12/21/18 09:24 Lab Results 12/21/18 12/21/18 12/21/18 Range/Units 08:46 09:11 09:24 WBC 8.7 (4.5-11.0) K/mm3 RBC 4.35 (3.65-5.03) M/mm3 Hgb 12.5 (10.1-14.3) gm/dl Hct 38.5 (30.3-42.9) % MCV 89 (79-97) fl MCH 29 (28-32) pg MCHC 32 (30-34) % RDW 14.1 (13.2-15.2) % Plt Count 226 (140-440) K/mm3 Seg Neutrophils % [employer]man VBG pH (7.320-7.420) Sodium (137-145) mmol/L Potassium (3.6-5.0) mmol/L Chloride (98-107) mmol/L Carbon Dioxide (22-30) mmol/L Anion Gap mmol/L BUN (7-17) mg/dL Creatinine (0.7-1.2) mg/dL Estimated GFR ml/min BUN/Creatinine Ratio % Glucose (65-100) mg/dL POC Glucose > 500 H (70-105) Calcium (8.4-10.2) mg/dL Total Bilirubin (0.1-1.2) mg/dL AST (5-40) units/L ALT (7-56) units/L Alkaline Phosphatase (35-129) units/L Total Protein (6.3-8.2) g/dL Albumin (3.9-5) g/dL Albumin/Globulin Ratio % Urine Color Colorless (Yellow) Urine Turbidity Clear (Clear) Urine pH 7.0 (5.0-7.0) Ur Specific [place] 1.016 (1.003-1.030) Urine Protein 100 mg/dl (Negative) mg/dL Urine Glucose (UA) >=500 (Negative) mg/dL Urine Ketones Tr (Negative) mg/dL Urine Blood Neg (Negative) Urine Nitrite Neg (Negative) Urine Bilirubin Neg (Negative) Urine Urobilinogen < 2.0 (<2.0) mg/dL Ur Leukocyte Esterase Neg (Negative) Urine WBC (Auto) 3.0 (0.0-6.0) /HPF Urine RBC (Auto) 2.0 (0.0-6.0) /HPF Urine Mucus Few /HPF 12/21/18 12/21/18 12/21/18 Range/Units 09:24 09:24 10:46 WBC (4.5-11.0) K/mm3 RBC (3.65-5.03) M/mm3 Hgb (10.1-14.3) gm/dl Hct (30.3-42.9) % MCV (79-97) fl MCH (28-32) pg MCHC (30-34) % RDW (13.2-15.2) % Plt Count (140-440) K/mm3 Seg Neutrophils % VBG pH 7.299 L (7.320-7.420) Sodium 126 L (137-145) mmol/L Potassium 4.9 (3.6-5.0) mmol/L Chloride 83.5 L (98-107) mmol/L Carbon Dioxide 25 (22-30) mmol/L Anion Gap 22 mmol/L BUN 30 H (7-17) mg/dL Creatinine 1.3 H (0.7-1.2) mg/dL Estimated GFR 40 ml/min BUN/Creatinine Ratio 23 % Glucose 951 H* (65-100) mg/dL POC Glucose > 500 H (70-105) Calcium 9.7 (8.4-10.2) mg/dL Total Bilirubin 0.40 (0.1-1.2) mg/dL AST 12 (5-40) units/L ALT 11 (7-56) units/L Alkaline Phosphatase 167 H (35-129) units/L Total Protein 8.2 (6.3-8.2) g/dL Albumin 4.0 (3.9-5) g/dL Albumin/Globulin Ratio 1.0 % Urine Color (Yellow) Urine Turbidity (Clear) Urine pH (5.0-7.0) Ur Specific [place] (1.003-1.030) Urine Protein (Negative) mg/dL Urine Glucose (UA) (Negative) mg/dL Urine Ketones (Negative) mg/dL Urine Blood (Negative) Urine Nitrite (Negative) Urine Bilirubin (Negative) Urine Urobilinogen (<2.0) mg/dL Ur Leukocyte Esterase (Negative) Urine WBC (Auto) (0.0-6.0) /HPF Urine RBC (Auto) (0.0-6.0) /HPF Urine Mucus /HPF - EKG Data -: EKG Interpreted by Ne EKG shows normal: sinus rhythm, ST-T waves (no stemi) Rate: tachycardia (111) - Radiology Data Radiology results: report reviewed CT CERVICAL SPINE WITHOUT CONTRAST INDICATION / CLINICAL INFORMATION: headache, head injury. Neck pain TECHNIQUE: Axial CT images were obtained through the cervical spine. Sagittal and coronal reformatted images were produced. All CT scans at this location are performed using CT dose reduction for ALARA by means of automated exposure control. COMPARISON: None available. FINDINGS: LIMITATIONS: Patient was unable to be positioned in a standard orientation. Obliquity of the scan plane is a limiting factor on this examination. Patient motion is also a limiting factor. This is most problematic evaluation of the C2 vertebrae. The C2 vertebra is incompletely evaluated on this study. POSTOPERATIVE CHANGES: Patient is status post laminectomy at the C5, C6 and C7 levels. ALIGNMENT: Patient's head is tilted towards the left. Grade 1 spondylolisthesis is noted at the C6- 7 level. No additional abnormalities of alignment are identified. VERTEBRAE: Due to patient motion artifact C2 vertebra is incompletely evaluated. Aside from this limitation there is no evidence of fracture. Erosions are identified along the ventral surface of the odontoid process likely a manifestation of arthritic change at the at lantoaxial junction. Anterior and posterior osteophyte formation are observed at several levels as d escribed level by level below. DISC SPACES: Loss of disc height is noted at the C2-3, C5-6, C6-7 and C7-T1 levels. INDIVIDUAL LEVEL ANALYSIS: C1-2: Posterior arthritic changes are observed at the atlantoaxial junction between the anterior arch of C1 and the odontoid process. Erosions along the ventral surface of the odontoid process are likely related to arthritic change. C2-3: Incomplete evaluation secondary to patient motion artifact. Loss of disc height is noted. Central spinal canal and neuroforamina are adequately maintained. C3-4: Left worse than right facet arthropathy. Central spinal canal and neuroforamina are adequately maintained. C4-5: Mild facet arthropathy. No additional abnormality. C5-6: Loss of disc height is evident. Anterior and posterior osteophyte formation are observed. Patient is status post laminectomy at the C6 level. Central spinal canal is adequate in size. Facet and uncovertebral arthritic changes contribute to mild bilateral foraminal narrowing at the C6 nerve root level. C6-7: Loss of disc height is noted. Anterior osteophyte formation is a prominent finding. Mild posterior osteophyte is observed. Patient is status post laminectomy at the C6-7 level. Central spinal canal is adequately maintained. Mild bilateral foraminal narrowing is observed. C7-T1: Status post laminectomy at C7. Central spinal canal is adequate in size. Neuroforamina are normally maintained. CRANIOCERVICAL JUNCTION:No significant abnormality. SPINAL CANAL: No indication of central canal stenosis. PARASPINAL SOFT TISSUES: No significant abnormality. ADDITIONAL FINDINGS: None. LUNG APICES: No significant abnormality of visualized lungs. IMPRESSION: 1. Limited study secondary to oblique patient positioning and patient motion. 2. Incomplete evaluation of C2 secondary to patient motion artifact. 3. Status post laminectomy C5-6, C6-7 and C7-T1. 4. With the exception of the incompletely evaluated C2 vertebrae there is no indication of fracture or traumatic subluxation. CT HEAD WITHOUT CONTRAST HISTORY: headache, head injury. TECHNIQUE: Axial imaging performed from the skull apex through the skull base without the use of contrast. All CT scans at this location are performed using CT dose reduction for ALARA by means of automated exposure control. COMPARISON: None FINDINGS: The images are slightly limited by motion artifact. Parenchyma: No acute intracranial hemorrhage or parenchymal abnormality.. Mild hypoattenuation throughout the white matter is noted and consistent with chronic microvascular ischemic disease. Ventricles: There is mild diffuse brain atrophy with commensurate ventricular enlargement which is likely age appropriate. Soft tissues: Soft tissues including the orbits appear normal. Bones: No acute osseous abnormality. Sinuses: Sinuses and mastoid air cells are clear. IMPRESSION: No acute abnormality. CT LUMBAR SPINE WITHOUT CONTRAST INDICATION: fall. Back injury TECHNIQUE: Axial imaging performed through the lumbar spine without the use of contrast. Sagittal and coronal reconstructed images were also reviewed. All CT scans at this location are performed using CT dose reduction for ALARA by means of automated exposure control. COMPARISON: None FINDINGS: Alignment: There is mild dextro curvature throughout the lumbar spine. No evidence for subluxation. Bones: Osteopenia is evident. Moderate to severe multilevel degenerative disc disease and facet arthropathy are identified. L1-2 and L2-3 appear to be the most affected disc levels. There is mild diffuse facet arthropathy. No evidence for fracture, compression deformity or bone lesion. Soft tissues: No acute or significant incidental soft tissue abnormality. IMPRESSION: No evidence for acute injury. Scoliosis with moderate to severe degenerative changes. Osteopenia. LUMBOSACRAL SPINE, 3 VIEWS AP PELVIS INDICATION: fall on buttock. COMPARISON: None. IMPRESSION: Osteopenia is evident. Mild dextro curvature is present throughout the lumbar spine with diffuse degenerative changes. No fracture or malalignment is appreciated. AP views of pelvis demonstrates no evidence for fracture, diastasis or bony lesion. The bilateral hips are anatomic. No acute osseous or soft tissue abnormality. LUMBOSACRAL SPINE, 3 VIEWS AP PELVIS INDICATION: fall on buttock. COMPARISON: None. IMPRESSION: Osteopenia is evident. Mild dextro curvature is present throughout the lumbar spine with diffuse degenerative changes. No fracture or malalignment is appreciated. AP views of pelvis demonstrates no evidence for fracture, diastasis or bony lesion. The bilateral hips are anatomic. No acute osseous or soft tissue abnormality. - Medical Decision Making -Patient appears to have least mild DKA. Received IV insulin, normal saline in the ED -Patient presents with hypotension and tachycardia. Received labetalol and metoprolol -No signs of UTI -Pt to be admitted to hospitalist at time of dispo current med list was unavailable, not provided by son - Differential Diagnosis DKA, UTI, encephalopathy Critical Care Time: No Critical care attestation.: If time is entered above; I have spent that time in minutes in the direct care of this critically ill patient, excluding procedure time. ED Disposition Clinical Impression: Hyperglycemia due to type 2 diabetes mellitus, Dehydration, Fall, Confusion, Uncontrolled hypertension, Tachycardia Disposition: OP ADMIT IP TO THIS HOSP Is pt being admited?: Yes Condition: Stable Instructions: Hypertension (ED) Time of Disposition: 11:32
[2018-12-21 09:31] LABS: Bilirubin,Urine NEG (Negative); Blood,Urine NEG (Negative); Color,Urine Colorless (Yellow); Mucus,Urine FEW /HPF; Urobilinogen,Urine < 2.0 mg/dL (<2.0)
[2018-12-21 09:40] LABS: Hematocrit 38.5 % (30.3-42.9); Hemoglobin 12.5 gm/dl (10.1-14.3); Mean Corpuscular HGB Conc 32 % (30-34); Mean Corpuscular Volume 89 fl (79-97); Platelet Count 226 K/mm3 (140-440); Red Blood Count 4.35 M/mm3 (3.65-5.03); Red Cell Distribution Width 14.1 % (13.2-15.2)
[2018-12-21 10:02] LABS: Calcium 9.7 mg/dL (8.4-10.2)
[2018-12-21] MEDS ORDERED: METOPROLOL TARTRATE 50 MG TAB PO ONE (10:41)
[2018-12-21] MEDS ORDERED: METOPROLOL TARTRATE 5 MG/5 ML INJ IV ONE (10:50)
--- NOTE | 2018-12-21 11:05 | Cat Scan Report ---
CT HEAD WITHOUT CONTRAST HISTORY: headache, head injury. TECHNIQUE: Axial imaging performed from the skull apex through the skull base without the use of con trast. All CT scans at this location are performed using CT dose reduction for ALARA by means of aut omated exposure control. COMPARISON: None FINDINGS: The images are slightly limited by motion artifact. Parenchyma: No acute intracranial hemorrhage or parenchymal abnormality.. Mild hypoattenuation thro ughout the white matter is noted and consistent with chronic microvascular ischemic disease. Ventricles: There is mild diffuse brain atrophy with commensurate ventricular enlargement which is l ikely age appropriate. Soft tissues: Soft tissues including the orbits appear normal. Bones: No acute osseous abnormality. Sinuses: Sinuses and mastoid air cells are clear. IMPRESSION: No acute abnormality. Signer Name: Shravan Ambrose Jr, MD Signed: 12/21/2018 11:01 AM Workstation Name: [id number]
--- NOTE | 2018-12-21 11:08 | Cat Scan Report ---
CT LUMBAR SPINE WITHOUT CONTRAST INDICATION: fall. Back injury TECHNIQUE: Axial imaging performed through the lumbar spine without the use of contrast. Sagittal a nd coronal reconstructed images were also reviewed. All CT scans at this location are performed usin g CT dose reduction for ALARA by means of automated exposure control. COMPARISON: None FINDINGS: Alignment: There is mild dextro curvature throughout the lumbar spine. No evidence for subluxation. Bones: Osteopenia is evident. Moderate to severe multilevel degenerative disc disease and facet arth ropathy are identified. L1-2 and L2-3 appear to be the most affected disc levels. There is mild diffu se facet arthropathy. No evidence for fracture, compression deformity or bone lesion. Soft tissues: No acute or significant incidental soft tissue abnormality. IMPRESSION: No evidence for acute injury. Scoliosis with moderate to severe degenerative changes. Os teopenia. Signer Name: Shravan Ambrose Jr, MD Signed: 12/21/2018 11:03 AM Workstation Name: [id number]
--- NOTE | 2018-12-21 11:17 | XRay Report ---
LUMBOSACRAL SPINE, 3 VIEWS AP PELVIS INDICATION: fall on buttock. COMPARISON: None. IMPRESSION: Osteopenia is evident. Mild dextro curvature is present throughout the lumbar spine with diffuse degenerative changes. No fracture or malalignment is appreciated. AP views of pelvis demonstrates no evidence for fracture, diastasis or bony lesion. The bilateral hip s are anatomic. No acute osseous or soft tissue abnormality. Signer Name: Shravan Ambrose Jr, MD Signed: 12/21/2018 11:13 AM Workstation Name: [id number]
--- NOTE | 2018-12-21 11:20 | Cat Scan Report ---
CT CERVICAL SPINE WITHOUT CONTRAST INDICATION / CLINICAL INFORMATION: headache, head injury. Neck pain TECHNIQUE: Axial CT images were obtained through the cervical spine. Sagittal and coronal reformatted images wer e produced. All CT scans at this location are performed using CT dose reduction for ALARA by means of automated exposure control. COMPARISON: None available. FINDINGS: LIMITATIONS: Patient was unable to be positioned in a standard orientation. Obliquity of the scan ruchi ne is a limiting factor on this examination. Patient motion is also a limiting factor. This is most p roblematic evaluation of the C2 vertebrae. The C2 vertebra is incompletely evaluated on this study. POSTOPERATIVE CHANGES: Patient is status post laminectomy at the C5, C6 and C7 levels. ALIGNMENT: Patient's head is tilted towards the left. Grade 1 spondylolisthesis is noted at the C6-7 level. No additional abnormalities of alignment are identified. VERTEBRAE: Due to patient motion artifact C2 vertebra is incompletely evaluated. Aside from this limi tation there is no evidence of fracture. Erosions are identified along the ventral surface of the odo ntoid process likely a manifestation of arthritic change at the atlantoaxial junction. Anterior and p osterior osteophyte formation are observed at several levels as described level by level below. DISC SPACES: Loss of disc height is noted at the C2-3, C5-6, C6-7 and C7-T1 levels. INDIVIDUAL LEVEL ANALYSIS: C1-2: Posterior arthritic changes are observed at the atlantoaxial junction between the anterior arch of C1 and the odontoid process. Erosions along the ventral surface of the odontoid process are likel y related to arthritic change. C2-3: Incomplete evaluation secondary to patient motion artifact. Loss of disc height is noted. Centr al spinal canal and neuroforamina are adequately maintained. C3-4: Left worse than right facet arthropathy. Central spinal canal and neuroforamina are adequately maintained. C4-5: Mild facet arthropathy. No additional abnormality. C5-6: Loss of disc height is evident. Anterior and posterior osteophyte formation are observed. Patie nt is status post laminectomy at the C6 level. Central spinal canal is adequate in size. Facet and un covertebral arthritic changes contribute to mild bilateral foraminal narrowing at the C6 nerve root l evel. C6-7: Loss of disc height is noted. Anterior osteophyte formation is a prominent finding. Mild assembler semiconductor ior osteophyte is observed. Patient is status post laminectomy at the C6-7 level. Central spinal valentino l is adequately maintained. Mild bilateral foraminal narrowing is observed. C7-T1: Status post laminectomy at C7. Central spinal canal is adequate in size. Neuroforamina are nor veronica maintained. CRANIOCERVICAL JUNCTION:No significant abnormality. SPINAL CANAL: No indication of central canal stenosis. PARASPINAL SOFT TISSUES: No significant abnormality. ADDITIONAL FINDINGS: None. LUNG APICES: No significant abnormality of visualized lungs. IMPRESSION: 1. Limited study secondary to oblique patient positioning and patient motion. 2. Incomplete evaluation of C2 secondary to patient motion artifact. 3. Status post laminectomy C5-6, C6-7 and C7-T1. 4. With the exception of the incompletely evaluated C2 vertebrae there is no indication of fracture o r traumatic subluxation. Signer Name: Yordy Horan MD Signed: 12/21/2018 11:15 AM Workstation Name: [id number]
[2018-12-21 12:13] LABS: Band Neutrophils # (Manual) 0.4 K/mm3; Eosinophils % (Manual) 0 % (0.0-4.3); Total Cells Counted 100
[2018-12-21] MEDS ORDERED: DEXTROSE 50% IN WATER (25GM) 50 ML SYRINGE IV PRN (12:13)
[2018-12-21 12:14] LABS: Platelet Estimate Consistent w Auto; RBC Morphology Normal
--- NOTE | 2018-12-21 12:18 | History and Physical Report ---
History of Present Illness Chief complaint: She is not acting right, and hasn't been taking her medication, and just acting confused History of present illness: 73 YO Female with DM, HTN, Debility, Dementia, Charcot Disease presents to eD for evaluation. Pt is confused, and lethargic at time of my exam and unable to provide history. Pt history provided by tuyet who is at bedside during exam and interview. As per son, the patient has experienced increased confusion, weakness, and lower extremity joint pain over the past 2 weeks. Pt experienced a fall yesterday from a standing position striking the back of her head without apparent injury. Pt has increased bedbound status, and currently requires 4/6 Assistance with activities of daily living. EMS notified, and upon arrival the patient was found to be in distress and transported to [facility]. Pt seen and evaluated in ED and found to have DKA with blood glucose above 900, as well as Hypertensive Emergency with BP of 243/111, as well as CHANDRIKA, and Metabolic Encephalopathy. Pt Admitted to ICU and initiated on DKA protocol, as well as IV Hydralazine for blood pressure control. Prior admission on 09/28/18 reviewed. All listed medication reconciled at time of admission. Advanced care planning conducted. Pt son acknowledges understanding and agreement with care plan. Past History Past Medical History: diabetes, hypertension, other (Charcot disease, Asthma) Past Surgical History: appendectomy, cholecystectomy, Other (Tubal ligation, Back, Eye surgery) Social history: , lives with family. denies: smoking, alcohol abuse, prescription drug abuse Family history: diabetes, hypertension Medications and Allergies Allergies Allergy/AdvReac Type Severity Reaction Status Date / Time cephalexin monohydrate Allergy Swelling Verified 03/06/15 12:17 [From Keflex] codeine Allergy Vomiting Verified 03/06/15 12:17 all narcotics Allergy Vomiting Uncoded 03/06/15 12:17 Contrast Dye AdvReac Swelling Uncoded 09/28/17 13:19 Home Medications Medication Instructions Recorded Confirmed Last Taken Type Acetaminophen [Acetaminophen TAB] 650 mg PO Q4H PRN #30 tablet 09/30/17 Unknown Rx Insulin Lispro Protamin/Lispro 20 units SQ BID #3 insuln.pen 09/30/17 Unknown Rx [HumaLOG Mix 75-25 Kwikpen] Metoprolol [Lopressor TAB] 25 mg PO DAILY #30 tablet 09/30/17 Unknown Rx Olmesartan/Hydrochlorothiazide 1 mg PO DAILY #30 tablet 09/30/17 Unknown Rx [Benicar HCT 20-12.5 mg] Ranolazine [Ranexa] 500 mg PO BID #60 tab.er.12h 09/30/17 Unknown Rx levoFLOXacin [Levaquin TAB] 250 mg PO Q24HR #3 tablet 09/30/17 Unknown Rx Active Meds: Active Medications Acetaminophen (Tylenol) 650 mg PO Q4H PRN PRN Reason: Pain MILD(1-3)/Fever >100.5/BROWN Dextrose (D50w (25gm) Syringe) 0 ml IV PRN PRN PRN Reason: Hypoglycemia Insulin Human Regular 100 (units/ Sodium Chloride) 100 mls @ 1 mls/hr IV TITR LORENA; Protocol Sodium Chloride (Nacl 0.9% 1000 Ml) 1,000 mls @ 999 mls/hr IV BOLUS ONE Stop: 12/21/18 13:13 Potassium Chloride/Dextrose/Sod Cl (D5w/0.45% Nacl/Kcl 20 Meq) 20 meq in 1,000 mls @ 125 mls/hr IV DIRECT LORENA Metoprolol Tartrate (Lopressor) 25 mg PO DAILY LORENA Miscellaneous Medication (Olmesartan/Hydrochlorothiazide [Benicar Hct 20-12.5 Mg]) 1 mg PO DAILY LORENA Ranolazine (Ranexa Er) 500 mg PO BID LORENA Sodium Chloride (Sodium Chloride Flush Syringe 10 Ml) 10 ml IV BID LORENA Sodium Chloride (Sodium Chloride Flush Syringe 10 Ml) 10 ml IV PRN PRN PRN Reason: LINE FLUSH Review of Systems ROS unobtainable: due to mental status Exam - Constitutional Vitals: Temp Pulse Resp BP Pulse Ox 98.8 F 108 H 18 166/71 97 12/21/18 08:57 12/21/18 11:30 12/21/18 11:30 12/21/18 11:30 12/21/18 11:16 General appearance: Present: mild distress - EENT Eyes: Present: miosis ENT: hearing decreased - Neck Neck: Present: supple - Respiratory Respiratory effort: normal Respiratory: bilateral: CTA - Cardiovascular Rhythm: other (tachycardia) Heart Sounds: Present: S1 & S2. Absent: rub, click - Extremities Extremities: pulses symmetrical, No edema Peripheral Pulses: within normal limits - Abdominal General gastrointestinal: Present: soft, non-tender, non-distended, normal bowel sounds Female genitourinary: Present: normal - Integumentary Integumentary: Present: clear, dry, pale, decreased turgor - Musculoskeletal Musculoskeletal: generalized weakness - Psychiatric Psychiatric: no appropriate mood/affect, no intact judgment & insight, no memory intact - Neurologic Neurologic: moves all extremities, no gait normal Results - Labs CBC & Chem 7: 12/21/18 09:24 12/21/18 09:24 Labs: Abnormal lab results 12/21/18 12/21/18 12/21/18 Range/Units 08:46 09:24 09:24 Seg Neuts % (Manual) 86.0 H (40.0-70.0) % Lymphocytes % (Manual) 7.0 L (13.4-35.0) % Lymphocytes # (Manual) 0.6 L (1.2-5.4) K/mm3 VBG pH (7.320-7.420) Sodium 126 L (137-145) mmol/L Chloride 83.5 L (98-107) mmol/L BUN 30 H (7-17) mg/dL Creatinine 1.3 H (0.7-1.2) mg/dL Glucose 951 H* (65-100) mg/dL POC Glucose > 500 H (70-105) Alkaline Phosphatase 167 H (35-129) units/L 12/21/18 12/21/18 Range/Units 09:24 10:46 Seg Neuts % (Manual) (40.0-70.0) % Lymphocytes % (Manual) (13.4-35.0) % Lymphocytes # (Manual) (1.2-5.4) K/mm3 VBG pH 7.299 L (7.320-7.420) Sodium (137-145) mmol/L Chloride (98-107) mmol/L BUN (7-17) mg/dL Creatinine (0.7-1.2) mg/dL Glucose (65-100) mg/dL POC Glucose > 500 H (70-105) Alkaline Phosphatase (35-129) units/L Assessment and Plan - Patient Problems (1) DKA (diabetic ketoacidoses) Current Visit: Yes Status: Acute Qualifiers: Diabetes mellitus type: type 1 Plan to address problem: DKA Protocol: Admit to ICU, Insulin drip, IVF resuscitation therapy, serial BMP, monitor anion gap, monitor uop q shift, The high probability of a clinically significant, sudden or life threatening deterioration of the [Endocrine, neuro, renal] system(s) required my full and direct attention, intervention and personal management. The aggregate critical care time was [65] minutes. This time is in addition to time spent performing reported procedures but includes the following: [x] Data Review and interpretation [x] Patient assessment and monitoring of vital signs [x] Documentation [x] Medication orders and management (2) Acidosis Current Visit: Yes Status: Acute Plan to address problem: IVF resuscitation therapy, Treat DKA, supportive care. (3) Metabolic encephalopathy Current Visit: Yes Status: Acute Plan to address problem: CT Head, neuro check, seizure precautions, blood pressure control, (4) CHANDRIKA (acute kidney injury) Current Visit: Yes Status: Acute Plan to address problem: IVF resuscitation therapy, serial bmp to monitor serum creatnine, (5) Advance care planning Current Visit: Yes Status: Acute Plan to address problem: Discussed end of life care, code status, home care. 30 minutes dedicated to home care planning. (6) Hypertensive emergency Current Visit: Yes Status: Acute Plan to address problem: Monitor BP q shift, IV hydralazine prn, resume prehospital antihypertensive therapy, (7) DVT prophylaxis Current Visit: No Status: Acute Plan to address problem: SCD to BLE while in bed, prophylactic heparin
[2018-12-21] MEDS ORDERED: LOSARTAN 50 MG TAB PO SCH (13:00)
[2018-12-21] MEDS ORDERED: D5W/0.45% NACL/KCL 20 MEQ 20 MEQ/1,000 ML BAG IV SCH (13:00)
[2018-12-21] MEDS ORDERED: hydroCHLOROthiazide 12.5 MG CAP PO SCH (13:00)
[2018-12-21] MEDS: INSULIN REGULAR, HUMAN 100 UNITS in SODIUM CHLORIDE 0.9% 99 ML IV SCH ×2 (13:14→23:18)
[2018-12-21] MEDS ORDERED: SODIUM CHLORIDE 0.9% 1000 ML 1,000 ML IV SCH (14:00)
[2018-12-21 14:19] LABS: Calcium 9.4 mg/dL (8.4-10.2)
[2018-12-21 15:50] LABS: Calcium 9.1 mg/dL (8.4-10.2)
[2018-12-21] MEDS: ACETAMINOPHEN 325 MG TAB PO PRN (17:15)
[2018-12-21] MEDS ORDERED: AZITHROMYCIN 500 MG in SODIUM CHLORIDE 0.9% 250ML 250 ML IV ONE (18:00)
[2018-12-21 19:00] LABS: Calcium 9.5 mg/dL (8.4-10.2)
[2018-12-21 19:12] LABS: Bilirubin,Urine NEG (Negative); Blood,Urine MOD (Negative); Color,Urine Yellow (Yellow); Urobilinogen,Urine < 2.0 mg/dL (<2.0)
[2018-12-21 19:13] LABS: Protein,Urine >500 mg/dL (Negative)
--- NOTE | 2018-12-21 20:16 | XRay Report ---
CHEST 1 VIEW 7:50 PM INDICATION / CLINICAL INFORMATION: Respiratory distress. COMPARISON: 09/28/2017. FINDINGS: SUPPORT DEVICES: None. HEART / MEDIASTINUM: The heart size and pulmonary vasculature are normal. LUNGS / PLEURA: Low lung volumes. No significant parenchymal or pleural abnormality. No pneumothorax. ADDITIONAL FINDINGS: No significant additional findings. IMPRESSION: No acute abnormality or significant change. Signer Name: Rolo Joy MD Signed: 12/21/2018 8:11 PM Workstation Name: [id number]
[2018-12-21 20:26] LABS: Calcium 9.3 mg/dL (8.4-10.2)
[2018-12-21] MEDS: HEPARIN 5,000 UNIT/1 ML VIAL SUB-Q SCH (22:22)
[2018-12-21] MEDS: RANOLAZINE ER 500 MG TAB 12HR PO SCH (22:38)
[2018-12-22 06:23] LABS: Albumin 3.4 g/dL (3.9-5)
[2018-12-22] MEDS ORDERED: DEXTROSE 50% IN WATER (25GM) 50 ML SYRINGE IV PRN (08:02)
[2018-12-22] MEDS: INSULIN REGULAR, HUMAN 100 UNITS/1 ML SUB-Q SCH ×4 (09:30→21:29)
[2018-12-22] MEDS: INSULIN NPH/REGULAR 70/30 INJ SUB-Q SCH ×2 (09:30→17:55)
[2018-12-22] MEDS ORDERED: HYDROCHLOROTHIAZIDE PO SCH (10:00)
[2018-12-22] MEDS ORDERED: OLMESARTAN PO SCH (10:00)
[2018-12-22] MEDS: METOPROLOL TARTRATE 25 MG TAB PO SCH (10:10)
[2018-12-22] MEDS: HEPARIN 5,000 UNIT/1 ML VIAL SUB-Q SCH ×2 (10:10→21:28)
--- NOTE | 2018-12-22 12:11 | Progress Note ---
Assessment and Plan Assessment and plan: DKA. Resolved. Patient will be transitioned to twice a day long-acting insulin and transferred to the floor0. Metabolic encephalopathy. Resolved. Patient back to her baseline mental status. Acute kidney injury. Etiology secondary to vasomotor nephropathy. Continue IV fluid hydration. Follow-up BMP. Accelerated hypertension. Resume antihypertensive medications. Blood pressure has improved significantly. Disposition. Anticipate discharge in a.m. History Interval history: No new issues overnight Hospitalist Physical - Constitutional Vitals: Temp Pulse Resp BP Pulse Ox 98.8 F 93 H 15 123/42 97 12/22/18 08:00 12/22/18 10:10 12/22/18 06:30 12/22/18 10:10 12/22/18 06:30 General appearance: Present: no acute distress - EENT Eyes: Present: PERRL, EOM intact ENT: hearing intact, clear oral mucosa, dentition normal - Neck Neck: Present: supple, normal ROM - Respiratory Respiratory effort: normal Respiratory: bilateral: CTA - Cardiovascular Rhythm: regular Heart Sounds: Present: S1 & S2. Absent: gallop, rub - Extremities Extremities: no ischemia, No edema, Full ROM - Abdominal General gastrointestinal: soft, non-tender, non-distended, normal bowel sounds - Integumentary Integumentary: Present: clear, warm, dry - Neurologic Neurologic: CNII-XII intact, moves all extremities Results - Labs CBC & Chem 7: 12/21/18 09:24 12/22/18 04:55 Labs: Laboratory Last Values WBC 8.7 K/mm3 (4.5-11.0) 12/21/18 09:24 RBC 4.35 M/mm3 (3.65-5.03) 12/21/18 09:24 Hgb 12.5 gm/dl (10.1-14.3) 12/21/18 09:24 Hct 38.5 % (30.3-42.9) 12/21/18 09:24 MCV 89 fl (79-97) 12/21/18 09:24 MCH 29 pg (28-32) 12/21/18 09:24 MCHC 32 % (30-34) 12/21/18 09:24 RDW 14.1 % (13.2-15.2) 12/21/18 09:24 Plt Count 226 K/mm3 (140-440) 12/21/18 09:24 Add Manual Diff Complete 12/21/18 09:24 Total Counted 100 12/21/18 09:24 Seg Neutrophils % Coagulation Operator 12/21/18 09:24 Seg Neuts % (Manual) 86.0 % (40.0-70.0) H 12/21/18 09:24 Band Neutrophils % 5.0 % 12/21/18 09:24 Lymphocytes % (Manual) 7.0 % (13.4-35.0) L 12/21/18 09:24 Reactive Lymphs % (Man) 0 % 12/21/18 09:24 Monocytes % (Manual) 1.0 % (0.0-7.3) 12/21/18 09:24 Eosinophils % (Manual) 0 % (0.0-4.3) 12/21/18 09:24 Basophils % (Manual) 1.0 % (0.0-1.8) 12/21/18 09:24 Metamyelocytes % 0 % 12/21/18 09:24 Myelocytes % 0 % 12/21/18 09:24 Promyelocytes % 0 % 12/21/18 09:24 Blast Cells % 0 % 12/21/18 09:24 Nucleated RBC % Not Reportable 12/21/18 09:24 Seg Neutrophils # Man 7.5 K/mm3 (1.8-7.7) 12/21/18 09:24 Band Neutrophils # 0.4 K/mm3 12/21/18 09:24 Lymphocytes # (Manual) 0.6 K/mm3 (1.2-5.4) L 12/21/18 09:24 Abs React Lymphs (Man) 0.0 K/mm3 12/21/18 09:24 Monocytes # (Manual) 0.1 K/mm3 (0.0-0.8) 12/21/18 09:24 Eosinophils # (Manual) 0.0 K/mm3 (0.0-0.4) 12/21/18 09:24 Basophils # (Manual) 0.1 K/mm3 (0.0-0.1) 12/21/18 09:24 Metamyelocytes # 0.0 K/mm3 12/21/18 09:24 Myelocytes # 0.0 K/mm3 12/21/18 09:24 Promyelocytes # 0.0 K/mm3 12/21/18 09:24 Blast Cells # 0.0 K/mm3 12/21/18 09:24 WBC Morphology Not Reportable 12/21/18 09:24 Hypersegmented Neuts Not Reportable 12/21/18 09:24 Hyposegmented Neuts Not Reportable 12/21/18 09:24 Hypogranular Neuts Not Reportable 12/21/18 09:24 Smudge Cells Not Reportable 12/21/18 09:24 Toxic Granulation Not Reportable 12/21/18 09:24 Toxic Vacuolation Not Reportable 12/21/18 09:24 Dohle Bodies Not Reportable 12/21/18 09:24 Pelger-Huet Anomaly Not Reportable 12/21/18 09:24 Saul Rods Not Reportable 12/21/18 09:24 Platelet Estimate Consistent w auto 12/21/18 09:24 Clumped Platelets Not Reportable 12/21/18 09:24 Plt Clumps, EDTA Not Reportable 12/21/18 09:24 Large Platelets Not Reportable 12/21/18 09:24 Giant Platelets Not Reportable 12/21/18 09:24 Platelet Satelliting Not Reportable 12/21/18 09:24 Plt Morphology Comment Not Reportable 12/21/18 09:24 RBC Morphology Normal 12/21/18 09:24 Dimorphic RBCs Not Reportable 12/21/18 09:24 Polychromasia Not Reportable 12/21/18 09:24 Hypochromasia Not Reportable 12/21/18 09:24 Poikilocytosis Not Reportable 12/21/18 09:24 Anisocytosis Not Reportable 12/21/18 09:24 Microcytosis Not Reportable 12/21/18 09:24 Macrocytosis Not Reportable 12/21/18 09:24 Spherocytes Not Reportable 12/21/18 09:24 Pappenheimer Bodies Not Reportable 12/21/18 09:24 Sickle Cells Not Reportable 12/21/18 09:24 Target Cells Not Reportable 12/21/18 09:24 Tear Drop Cells Not Reportable 12/21/18 09:24 Ovalocytes Not Reportable 12/21/18 09:24 Helmet Cells Not Reportable 12/21/18 09:24 Lambert-Venus Bodies Not Reportable 12/21/18 09:24 [place] Rings Not Reportable 12/21/18 09:24 Evi Cells Not Reportable 12/21/18 09:24 Bite Cells Not Reportable 12/21/18 09:24 Crenated Cell Not Reportable 12/21/18 09:24 Elliptocytes Not Reportable 12/21/18 09:24 Acanthocytes (Spur) Not Reportable 12/21/18 09:24 Rouleaux Not Reportable 12/21/18 09:24 Hemoglobin C Crystals Not Reportable 12/21/18 09:24 Schistocytes Not Reportable 12/21/18 09:24 Malaria parasites Not Reportable 12/21/18 09:24 Sid Bodies Not Reportable 12/21/18 09:24 Hem Pathologist Commnt No 12/21/18 09:24 VBG pH 7.299 (7.320-7.420) L 12/21/18 09:24 Sodium 140 mmol/L (137-145) 12/22/18 04:55 Potassium 3.4 mmol/L (3.6-5.0) L 12/22/18 04:55 Chloride 102.4 mmol/L (98-107) 12/22/18 04:55 Carbon Dioxide 22 mmol/L (22-30) 12/22/18 04:55 Anion Gap 19 mmol/L 12/22/18 04:55 BUN 23 mg/dL (7-17) H 12/22/18 04:55 Creatinine 1.1 mg/dL (0.7-1.2) 12/22/18 04:55 Estimated GFR 49 ml/min 12/22/18 04:55 BUN/Creatinine Ratio 21 % 12/22/18 04:55 Glucose 132 mg/dL (65-100) H 12/22/18 04:55 POC Glucose 193 (70-105) H 12/22/18 09:20 Calcium 9.0 mg/dL (8.4-10.2) 12/22/18 04:55 Phosphorus 2.20 mg/dL (2.5-4.5) L 12/21/18 13:33 Magnesium 1.50 mg/dL (1.7-2.3) L 12/21/18 13:33 Total Bilirubin 0.30 mg/dL (0.1-1.2) 12/22/18 04:55 AST 16 units/L (5-40) 12/22/18 04:55 ALT 8 units/L (7-56) 12/22/18 04:55 Alkaline Phosphatase 124 units/L (35-129) 12/22/18 04:55 Total Protein 6.9 g/dL (6.3-8.2) 12/22/18 04:55 Albumin 3.4 g/dL (3.9-5) L 12/22/18 04:55 Albumin/Globulin Ratio 1.0 % 12/22/18 04:55 Urine Color Yellow (Yellow) 12/21/18 Unknown Urine Turbidity Clear (Clear) 12/21/18 Unknown Urine pH 5.0 (5.0-7.0) 12/21/18 Unknown Ur Specific [place] 1.018 (1.003-1.030) 12/21/18 Unknown Urine Protein >500 mg/dL (Negative) 12/21/18 Unknown Urine Glucose (UA) >=500 mg/dL (Negative) 12/21/18 Unknown Urine Ketones Tr mg/dL (Negative) 12/21/18 Unknown Urine Blood Mod (Negative) 12/21/18 Unknown Urine Nitrite Neg (Negative) 12/21/18 Unknown Urine Bilirubin Neg (Negative) 12/21/18 Unknown Urine Urobilinogen < 2.0 mg/dL (<2.0) 12/21/18 Unknown Ur Leukocyte Esterase Neg (Negative) 12/21/18 Unknown Urine WBC (Auto) 1.0 /HPF (0.0-6.0) 12/21/18 Unknown Urine RBC (Auto) 1.0 /HPF (0.0-6.0) 12/21/18 Unknown Urine Mucus Few /HPF 12/21/18 09:11 Active Medications - Current Medications Current Medications: Generic Name Dose Route Start Last Admin Trade Name Freq PRN Reason Stop Dose Admin Acetaminophen 650 mg 12/21/18 12:16 12/21/18 17:15 Tylenol PO 650 mg Q4H PRN Administration Pain MILD(1-3)/Fever >100.5/BROWN Dextrose 50 ml 12/22/18 08:02 D50w (25gm) Syringe IV PRN PRN Hypoglycemia Heparin Sodium (Porcine) 5,000 unit 12/21/18 22:00 12/22/18 10:10 Heparin SUB-Q 5,000 unit Q12HR LORENA Administration Sodium Chloride 1,000 mls @ 75 mls/hr 12/22/18 09:00 Nacl 0.9% 1000 Ml IV DIRECT LORENA Levofloxacin/Dextrose 750 mg in 150 mls @ 100 mls/hr 12/22/18 10:00 Levaquin 750mg/150ml IV 12/25/18 11:29 Q24HR LORENA Protocol Insulin Human Isoph/Insulin Regular 20 unit 12/22/18 09:00 12/22/18 09:30 Humulin 70/30 SUB-Q 20 unit BIDDIAB LORENA Administration Insulin Human Regular 0 units 12/22/18 09:00 12/22/18 09:30 Humulin R SUB-Q 2 units ACHS LORENA Administration Protocol Metoprolol Tartrate 25 mg 12/22/18 10:00 12/22/18 10:10 Lopressor PO 25 mg DAILY LORENA Administration Ranolazine 500 mg 12/21/18 22:00 12/21/18 22:38 Ranexa Er PO Not Given BID LORENA Sodium Chloride 10 ml 12/21/18 22:00 12/21/18 22:32 Sodium Chloride Flush Syringe 10 Ml IV 10 ml BID LORENA Administration Sodium Chloride 10 ml 12/21/18 12:13 Sodium Chloride Flush Syringe 10 Ml IV PRN PRN LINE FLUSH Nutrition/Malnutrition Assess - Dietary Evaluation Nutrition/Malnutrition Findings: Nutrition Notes Start: 12/22/18 09:37 Freq: Status: Active Protocol: Document 12/22/18 09:37 SARAH (Rec: 12/22/18 10:40 SARAH [email or web address]) Co-Sign 12/22/18 09:37 LM Nutrition Notes Need for 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 Pt stated she had no appetite in the hospital, but ate fine at home. Burn Absent Trauma Absent Minimum of two criteria No #1 Nutrition Diagnosis Inadequate oral intake Etiology DKA, and metabolic encephalopathy As Evidenced by Signs and Symptoms Pt stated having wt loss and a decreased appetite, NPO Is patient on ventilator? No Is Patient Ambulatory and/or Out of Bed No REE-([facility]-confined to bed) 1572.120 Calculation Used for Recommendations [facility] Additional Notes Protein needs: 82g-98g/kg (1g- 1.2g/kg) Fluid needs: 1kcal/kg Nutrition Intervention Change Diet Order: Consistent carbohydrate Goal #1 Meet at leat 75% of energy and protein needs Anticipated Discharge Needs: Consistent carb diet Follow-Up By: 12/24/18 Additional Comments F/U for PO intakes
[2018-12-22] MEDS: RANOLAZINE ER 500 MG TAB 12HR PO SCH ×2 (12:55→21:28)
[2018-12-22] MEDS: SODIUM CHLORIDE 0.9% 1000 ML 1,000 ML IV SCH (14:34)
[2018-12-22] MEDS: ACETAMINOPHEN 325 MG TAB PO PRN (15:50)
[2018-12-23] MEDS ORDERED: LORazepam 2 MG/ML VIAL IV ONE (04:55)
--- NOTE | 2018-12-23 05:03 | Event Note ---
code met pt had a sz obtain cth, douglas cummings blood sugar 328 consult neurology Addendum She had another seizure aborted with IV Ativan Transferred to [facility] for closer care
[2018-12-23 05:22] LABS: Hematocrit 34.6 % (30.3-42.9); Hemoglobin 11.3 gm/dl (10.1-14.3); Mean Corpuscular HGB Conc 33 % (30-34); Mean Corpuscular Volume 88 fl (79-97); Platelet Count 234 K/mm3 (140-440); Red Blood Count 3.96 M/mm3 (3.65-5.03); Red Cell Distribution Width 14.3 % (13.2-15.2)
[2018-12-23] MEDS: levETIRAcetam 1,000 MG in DEXTROSE 5% IN WATER 100 ML IV SCH ×2 (05:41→17:40)
[2018-12-23 05:42] LABS: Calcium 9.1 mg/dL (8.4-10.2)
[2018-12-23] MEDS: SODIUM CHLORIDE 0.9% 1000 ML 1,000 ML IV SCH (05:42)
--- NOTE | 2018-12-23 05:43 | Cat Scan Report ---
CT HEAD WITHOUT CONTRAST INDICATION / CLINICAL INFORMATION: new onset sz. TECHNIQUE: All CT scans at this location are performed using CT dose reduction for ALARA by means of automated e xposure control. COMPARISON: CT dated 12/21/18 FINDINGS: HEMORRHAGE: None. EXTRA-AXIAL SPACES: Normal in size and morphology for the patient's age. VENTRICULAR SYSTEM: Normal in size and morphology for the patient's age. CEREBRAL PARENCHYMA: Mild white matter hypodensities likely represent microangiopathy. No acute esperanza torial infarct. MIDLINE SHIFT OR HERNIATION: None. CEREBELLUM / BRAINSTEM: No significant abnormality. ORBITS: Normal as visualized. SOFT TISSUES of HEAD: No significant abnormality. CALVARIUM: No significant abnormality. PARANASAL SINUSES / MASTOID AIR CELLS: Normal as visualized. ADDITIONAL FINDINGS: None. IMPRESSION: 1. No acute intracranial abnormality. 2. Chronic and age-related findings appear unchanged. Signer Name: Xin Brown MD Signed: 12/23/2018 5:39 AM Workstation Name: [id number]
[2018-12-23] MEDS ORDERED: LORazepam 2 MG/ML VIAL IV PRN (05:52)
[2018-12-23 06:44] LABS: Eosinophils % (Manual) 0 % (0.0-4.3); Total Cells Counted 100
[2018-12-23 06:45] LABS: Platelet Estimate Consistent w Auto; RBC Morphology Normal
[2018-12-23] MEDS: INSULIN REGULAR, HUMAN 100 UNITS/1 ML SUB-Q SCH ×3 (08:30→17:43)
[2018-12-23] MEDS: HEPARIN 5,000 UNIT/1 ML VIAL SUB-Q SCH (10:42)
[2018-12-23] MEDS: INSULIN NPH/REGULAR 70/30 INJ SUB-Q SCH ×2 (10:44→17:43)
[2018-12-23] MEDS: METOPROLOL TARTRATE 25 MG TAB PO SCH (10:45)
[2018-12-23] MEDS: RANOLAZINE ER 500 MG TAB 12HR PO SCH (10:46)
--- NOTE | 2018-12-23 13:23 | Progress Note ---
Assessment and Plan Assessment and plan: Seizure disorder. ? New onset. Check MRI brain and EEG. Neurology consultation pending. Continue Keppra IV twice a day and Ativan when necessary DKA. Resolved. Patient will be transitioned to twice a day long-acting insulin and transferred to the floor0. Metabolic encephalopathy. Resolved. Patient back to her baseline mental status. Acute kidney injury. Etiology secondary to vasomotor nephropathy. Continue IV fluid hydration. Follow-up BMP. Accelerated hypertension. Resume antihypertensive medications. Blood pressure has improved significantly. Disposition. Anticipate discharge in a.m. History Interval history: 73 YO Female with DM, HTN, Debility, Dementia, Charcot Disease presents to ED for evaluation. As per son, the patient experienced increased confusion, weakness, and lower extremity joint pain over the past 2 weeks [employer]IAL [employer]SE[employer]. 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 Pt has had increased bedbound status, and currently requires supervisor matrix assistance with activities of daily living. EMS notified, and upon arrival the patient was found to be in distress and t ransported to [facility]. Pt seen and evaluated in ED and found to have DKA with blood glucose above 900, as well as Hypertensive Emergency with BP of 243/111, as well as CHANDRIKA, and Metabolic Encephalopathy. Pt Admitted to ICU and initiated on DKA protocol, as well as IV Hydralazine for blood pressure control. The patient was later transitioned to long-acting insulin off of IV insulin drip. DKA resolved. However, on the evening of 12/22/18 patient developed seizure activity. No report of any seizure disorder history. The patient was treated with Ativan and Keppra IV and transferred to the ICU for closer monitoring. Upon my evaluation this morning, patient is noted to be somnolent and lethargic Hospitalist Physical - Constitutional Vitals: Temp Pulse Resp BP Pulse Ox 98 F 89 14 107/39 96 12/23/18 12:00 12/23/18 10:45 12/23/18 08:30 12/23/18 10:45 12/23/18 08:30 General appearance: Present: no acute distress - EENT Eyes: Present: PERRL, EOM intact ENT: hearing intact, clear oral mucosa, dentition normal - Neck Neck: Present: supple, normal ROM - Respiratory Respiratory effort: normal Respiratory: bilateral: CTA - Cardiovascular Rhythm: regular Heart Sounds: Present: S1 & S2. Absent: gallop, rub - Extremities Extremities: no ischemia, No edema, Full ROM - Abdominal General gastrointestinal: soft, non-tender, non-distended, normal bowel sounds - Integumentary Integumentary: Present: clear, warm, dry - Neurologic Neurologic: CNII-XII intact, moves all extremities Results - Labs CBC & Chem 7: 12/23/18 04:21 12/23/18 04:21 Labs: Laboratory Last Values WBC 15.7 K/mm3 (4.5-11.0) H 12/23/18 04:21 RBC 3.96 M/mm3 (3.65-5.03) 12/23/18 04:21 Hgb 11.3 gm/dl (10.1-14.3) 12/23/18 04:21 Hct 34.6 % (30.3-42.9) 12/23/18 04:21 MCV 88 fl (79-97) 12/23/18 04:21 MCH 28 pg (28-32) 12/23/18 04:21 MCHC 33 % (30-34) 12/23/18 04:21 RDW 14.3 % (13.2-15.2) 12/23/18 04:21 Plt Count 234 K/mm3 (140-440) 12/23/18 04:21 Add Manual Diff Complete 12/23/18 04:21 Total Counted 100 12/23/18 04:21 Seg Neutrophils % Trainer 12/21/18 09:24 Seg Neuts % (Manual) 83.0 % (40.0-70.0) H 12/23/18 04:21 Band Neutrophils % 0 % 12/23/18 04:21 Lymphocytes % (Manual) 12.0 % (13.4-35.0) L 12/23/18 04:21 Reactive Lymphs % (Man) 0 % 12/23/18 04:21 Monocytes % (Manual) 2.0 % (0.0-7.3) 12/23/18 04:21 Eosinophils % (Manual) 0 % (0.0-4.3) 12/23/18 04:21 Basophils % (Manual) 1.0 % (0.0-1.8) 12/23/18 04:21 Metamyelocytes % 2.0 % 12/23/18 04:21 Myelocytes % 0 % 12/23/18 04:21 Promyelocytes % 0 % 12/23/18 04:21 Blast Cells % 0 % 12/23/18 04:21 Nucleated RBC % Not Reportable 12/23/18 04:21 Seg Neutrophils # Man 13.0 K/mm3 (1.8-7.7) H 12/23/18 04:21 Band Neutrophils # 0.0 K/mm3 12/23/18 04:21 Lymphocytes # (Manual) 1.9 K/mm3 (1.2-5.4) 12/23/18 04:21 Abs React Lymphs (Man) 0.0 K/mm3 12/23/18 04:21 Monocytes # (Manual) 0.3 K/mm3 (0.0-0.8) 12/23/18 04:21 Eosinophils # (Manual) 0.0 K/mm3 (0.0-0.4) 12/23/18 04:21 Basophils # (Manual) 0.2 K/mm3 (0.0-0.1) H 12/23/18 04:21 Metamyelocytes # 0.3 K/mm3 12/23/18 04:21 Myelocytes # 0.0 K/mm3 12/23/18 04:21 Promyelocytes # 0.0 K/mm3 12/23/18 04:21 Blast Cells # 0.0 K/mm3 12/23/18 04:21 WBC Morphology Not Reportable 12/23/18 04:21 Hypersegmented Neuts Not Reportable 12/23/18 04:21 Hyposegmented Neuts Not Reportable 12/23/18 04:21 Hypogranular Neuts Not Reportable 12/23/18 04:21 Smudge Cells Not Reportable 12/23/18 04:21 Toxic Granulation Not Reportable 12/23/18 04:21 Toxic Vacuolation Not Reportable 12/23/18 04:21 Dohle Bodies Not Reportable 12/23/18 04:21 Pelger-Huet Anomaly Not Reportable 12/23/18 04:21 Saul Rods Not Reportable 12/23/18 04:21 Platelet Estimate Consistent w auto 12/23/18 04:21 Clumped Platelets Not Reportable 12/23/18 04:21 Plt Clumps, EDTA Not Reportable 12/23/18 04:21 Large Platelets Not Reportable 12/23/18 04:21 Giant Platelets Not Reportable 12/23/18 04:21 Platelet Satelliting Not Reportable 12/23/18 04:21 Plt Morphology Comment Not Reportable 12/23/18 04:21 RBC Morphology Normal 12/23/18 04:21 Dimorphic RBCs Not Reportable 12/23/18 04:21 Polychromasia Not Reportable 12/23/18 04:21 Hypochromasia Not Reportable 12/23/18 04:21 Poikilocytosis Not Reportable 12/23/18 04:21 Anisocytosis Not Reportable 12/23/18 04:21 Microcytosis Not Reportable 12/23/18 04:21 Macrocytosis Not Reportable 12/23/18 04:21 Spherocytes Not Reportable 12/23/18 04:21 Pappenheimer Bodies Not Reportable 12/23/18 04:21 Sickle Cells Not Reportable 12/23/18 04:21 Target Cells Not Reportable 12/23/18 04:21 Tear Drop Cells Not Reportable 12/23/18 04:21 Ovalocytes Not Reportable 12/23/18 04:21 Helmet Cells Not Reportable 12/23/18 04:21 Lambert-Schaller Bodies Not Reportable 12/23/18 04:21 Homeworth Rings Not Reportable 12/23/18 04:21 Saragosa Cells Not Reportable 12/23/18 04:21 Bite Cells Not Reportable 12/23/18 04:21 Crenated Cell Not Reportable 12/23/18 04:21 Elliptocytes Not Reportable 12/23/18 04:21 Acanthocytes (Spur) Not Reportable 12/23/18 04:21 Rouleaux Not Reportable 12/23/18 04:21 Hemoglobin C Crystals Not Reportable 12/23/18 04:21 Schistocytes Not Reportable 12/23/18 04:21 Malaria parasites Not Reportable 12/23/18 04:21 Sid Bodies Not Reportable 12/23/18 04:21 Hem Pathologist Commnt No 12/23/18 04:21 VBG pH 7.299 (7.320-7.420) L 12/21/18 09:24 Sodium 136 mmol/L (137-145) L 12/23/18 04:21 Potassium 4.6 mmol/L (3.6-5.0) D 12/23/18 04:21 Chloride 95.9 mmol/L (98-107) L 12/23/18 04:21 Carbon Dioxide 17 mmol/L (22-30) L 12/23/18 04:21 Anion Gap 28 mmol/L 12/23/18 04:21 BUN 19 mg/dL (7-17) H 12/23/18 04:21 Creatinine 1.3 mg/dL (0.7-1.2) H 12/23/18 04:21 Estimated GFR 40 ml/min 12/23/18 04:21 BUN/Creatinine Ratio 15 % 12/23/18 04:21 Glucose 280 mg/dL (65-100) H 12/23/18 04:21 POC Glucose 235 (70-105) H 12/23/18 12:27 Calcium 9.1 mg/dL (8.4-10.2) 12/23/18 04:21 Phosphorus 2.20 mg/dL (2.5-4.5) L 12/21/18 13:33 Magnesium 1.50 mg/dL (1.7-2.3) L 12/21/18 13:33 Total Bilirubin 0.30 mg/dL (0.1-1.2) 12/22/18 04:55 AST 16 units/L (5-40) 12/22/18 04:55 ALT 8 units/L (7-56) 12/22/18 04:55 Alkaline Phosphatase 124 units/L (35-129) 12/22/18 04:55 Total Protein 6.9 g/dL (6.3-8.2) 12/22/18 04:55 Albumin 3.4 g/dL (3.9-5) L 12/22/18 04:55 Albumin/Globulin Ratio 1.0 % 12/22/18 04:55 Urine Color Yellow (Yellow) 12/21/18 Unknown Urine Turbidity Clear (Clear) 12/21/18 Unknown Urine pH 5.0 (5.0-7.0) 12/21/18 Unknown Ur Specific [place] 1.018 (1.003-1.030) 12/21/18 Unknown Urine Protein >500 mg/dL (Negative) 12/21/18 Unknown Urine Glucose (UA) >=500 mg/dL (Negative) 12/21/18 Unknown Urine Ketones Tr mg/dL (Negative) 12/21/18 Unknown Urine Blood Mod (Negative) 12/21/18 Unknown Urine Nitrite Neg (Negative) 12/21/18 Unknown Urine Bilirubin Neg (Negative) 12/21/18 Unknown Urine Urobilinogen < 2.0 mg/dL (<2.0) 12/21/18 Unknown Ur Leukocyte Esterase Neg (Negative) 12/21/18 Unknown Urine WBC (Auto) 1.0 /HPF (0.0-6.0) 12/21/18 Unknown Urine RBC (Auto) 1.0 /HPF (0.0-6.0) 12/21/18 Unknown Urine Mucus Few /HPF 12/21/18 09:11 Active Medications - Current Medications Current Medications: Generic Name Dose Route Start Last Admin Trade Name Freq PRN Reason Stop Dose Admin Acetaminophen 650 mg 12/21/18 12:16 12/22/18 15:50 Tylenol PO 650 mg Q4H PRN Administration Pain MILD(1-3)/Fever >100.5/BROWN Dextrose 50 ml 12/22/18 08:02 D50w (25gm) Syringe IV PRN PRN Hypoglycemia Heparin Sodium (Porcine) 5,000 unit 12/21/18 22:00 12/23/18 10:42 Heparin SUB-Q 5,000 unit Q12HR LORENA Administration Sodium Chloride 1,000 mls @ 75 mls/hr 12/22/18 09:00 12/23/18 05:42 Nacl 0.9% 1000 Ml IV 75 mls/hr DIRECT LORENA Administration Levofloxacin/Dextrose 750 mg in 150 mls @ 100 mls/hr 12/22/18 10:00 12/23/18 10:42 Levaquin 750mg/150ml IV 12/25/18 11:29 100 mls/hr Q24HR LORENA Administration Protocol Levetiracetam 1,000 mg/ 110 mls @ 400 mls/hr 12/23/18 05:00 12/23/18 05:41 Dextrose IV 400 mls/hr Q12H LORENA Administration Insulin Human Isoph/Insulin Regular 20 unit 12/22/18 09:00 12/23/18 10:44 Humulin 70/30 SUB-Q Not Given BIDDIAB LORENA Insulin Human Regular 0 units 12/22/18 09:00 12/23/18 08:30 Humulin R SUB-Q 6 units ACHS LORENA Administration Protocol Lorazepam 1 mg 12/23/18 05:52 Ativan IV Q4H PRN Seizures Metoprolol Tartrate 25 mg 12/22/18 10:00 12/23/18 10:45 Lopressor PO Not Given DAILY LORENA Ranolazine 500 mg 12/21/18 22:00 12/23/18 10:46 Ranexa Er PO Not Given BID LORENA Sodium Chloride 10 ml 12/21/18 22:00 12/23/18 10:48 Sodium Chloride Flush Syringe 10 Ml IV 10 ml BID LORENA Administration Sodium Chloride 10 ml 12/21/18 12:13 Sodium Chloride Flush Syringe 10 Ml IV PRN PRN LINE FLUSH Nutrition/Malnutrition Assess - Dietary Evaluation Nutrition/Malnutrition Findings: Nutrition Notes Start: 12/22/18 09:37 Freq: Status: Active Protocol: Document 12/22/18 09:37 SARAH (Rec: 12/22/18 10:40 SARAH [email or web address]) Co-Sign 12/22/18 09:37 LM Nutrition Notes Need for Assessment generated from: family day care provider,MST Initial or Follow up Assessment Current Diagnosis Acute Kidney Injury,Diabetes, Hypertension Other Pertinent Diagnosis Metabolic encephalopathy, dementia, charcot disease Current Diet NPO Labs/Tests K 3.4 BUN 23 Pertinent Medications Reviewed Height 5 ft 4 in Weight 82 kg [place] Body Weight (kg) 54.54 BMI 31.0 Weight Status Obese Subjective/Other Information Pt was confused and stated she lost 60lb, but couldn't understand the time frame of wt loss. Pt stated she had no appetite in the hospital, but ate fine at home. Burn Absent Trauma Absent Minimum of two criteria No #1 Nutrition Diagnosis Inadequate oral intake Etiology DKA, and metabolic encephalopathy As Evidenced by Signs and Symptoms Pt stated having wt loss and a decreased appetite, NPO Is patient on ventilator? No Is Patient Ambulatory and/or Out of Bed No REE-([facility]-confined to bed) 1572.120 Calculation Used for Recommendations [facility] Additional Notes Protein needs: 82g-98g/kg (1g- 1.2g/kg) Fluid needs: 1kcal/kg Nutrition Intervention Change Diet Order: Consistent carbohydrate Goal #1 Meet at leat 75% of energy and protein needs Anticipated Discharge Needs: Consistent carb diet Follow-Up By: 10/04/19 Additional Comments F/U for PO intakes
[2018-12-23] MEDS: D5W/0.45% NACL 1,000 ML IV SCH (17:42)
--- NOTE | 2018-12-23 18:49 | Consultation ---
Past History Past Medical History: diabetes, hypertension, other (Charcot disease, Asthma) Past Surgical History: appendectomy, cholecystectomy, Other (Tubal ligation, Back, Eye surgery) Social history: , lives with family. denies: smoking, alcohol abuse, prescription drug abuse Family history: diabetes, hypertension Medications and Allergies Allergies Allergy/AdvReac Type Severity Reaction Status Date / Time cephalexin monohydrate Allergy Swelling Verified 03/06/15 12:17 [From Keflex] codeine Allergy Vomiting Verified 03/06/15 12:17 all narcotics Allergy Vomiting Uncoded 03/06/15 12:17 Contrast Dye AdvReac Swelling Uncoded 09/28/17 13:19 Home Medications Medication Instructions Recorded Confirmed Last Taken Type Acetaminophen [Acetaminophen TAB] 650 mg PO Q4H PRN #30 tablet 09/30/17 12/21/18 Unknown Rx Insulin Lispro Protamin/Lispro 20 units SQ BID #3 insuln.pen 09/30/17 12/21/18 Unknown Rx [HumaLOG Mix 75-25 Kwikpen] Metoprolol [Lopressor TAB] 25 mg PO DAILY #30 tablet 09/30/17 12/21/18 Unknown Rx Olmesartan/Hydrochlorothiazide 1 mg PO DAILY #30 tablet 09/30/17 12/21/18 Unknown Rx [Benicar HCT 20-12.5 mg] Ranolazine [Ranexa] 500 mg PO BID #60 tab.er.12h 09/30/17 12/21/18 Unknown Rx levoFLOXacin [Levaquin TAB] 250 mg PO Q24HR #3 tablet 09/30/17 12/21/18 Unknown Rx Active Meds: Active Medications Acetaminophen (Tylenol) 650 mg PO Q4H PRN PRN Reason: Pain MILD(1-3)/Fever >100.5/BROWN Last Admin: 12/22/18 15:50 Dose: 650 mg Documented by: Dextrose (D50w (25gm) Syringe) 50 ml IV PRN PRN PRN Reason: Hypoglycemia Heparin Sodium (Porcine) (Heparin) 5,000 unit SUB-Q Q12HR [facility] Last Admin: 12/23/18 10:42 Dose: 5,000 unit Documented by: Levetiracetam 1,000 mg/ (Dextrose) 110 mls @ 400 mls/hr IV Q12H [facility] Last Admin: 12/23/18 17:40 Dose: 400 mls/hr Documented by: Levofloxacin/Dextrose (Levaquin 750mg/150ml) 750 mg in 150 mls @ 100 mls/hr IV Q48HR [facility]; Protocol Stop: 12/25/18 23:59 Dextrose/Sodium Chloride (D5/0.45ns) 1,000 mls @ 75 mls/hr IV DIRECT [facility] Last Admin: 12/23/18 17:42 Dose: 75 mls/hr Documented by: Insulin Human Isoph/Insulin Regular (Humulin 70/30) 20 unit SUB-Q BIDDIAB [facility] Last Admin: 12/23/18 17:43 Dose: Not Given Documented by: Insulin Human Regular (Humulin R) 0 units SUB-Q ACHS [facility]; Protocol Last Admin: 12/23/18 17:43 Dose: Not Given Documented by: Lorazepam (Ativan) 1 mg IV Q4H PRN PRN Reason: Seizures Metoprolol Tartrate (Lopressor) 25 mg PO DAILY [facility] Last Admin: 12/23/18 10:45 Dose: Not Given Documented by: Ranolazine (Ranexa Er) 500 mg PO BID [facility] Last Admin: 12/23/18 10:46 Dose: Not Given Documented by: Sodium Chloride (Sodium Chloride Flush Syringe 10 Ml) 10 ml IV BID [facility] Last Admin: 12/23/18 10:48 Dose: 10 ml Documented by: Sodium Chloride (Sodium Chloride Flush Syringe 10 Ml) 10 ml IV PRN PRN PRN Reason: LINE FLUSH Physical Examination - Vital Signs Vital Signs: Vital Signs Temp Pulse Resp BP Pulse Ox 98.8 F 111 H 20 209/129 97 12/21/18 08:57 12/21/18 08:57 12/21/18 08:57 12/21/18 08:57 12/21/18 08:57 Results - Laboratory Findings CBC and BMP: 12/23/18 04:21 12/23/18 04:21 Abnormal Lab Findings: Abnormal Labs 12/21/18 12/21/18 12/21/18 08:46 09:24 09:24 WBC Seg Neuts % (Manual) 86.0 H Lymphocytes % (Manual) 7.0 L Seg Neutrophils # Man Lymphocytes # (Manual) 0.6 L Basophils # (Manual) VBG pH Sodium 126 L Potassium Chloride 83.5 L Carbon Dioxide BUN 30 H Creatinine 1.3 H Glucose 951 H* POC Glucose > 500 H Phosphorus Magnesium Alkaline Phosphatase 167 H Albumin 12/21/18 12/21/18 12/21/18 09:24 10:46 12:29 WBC Seg Neuts % (Manual) Lymphocytes % (Manual) Seg Neutrophils # Man Lymphocytes # (Manual) Basophils # (Manual) VBG pH 7.299 L Sodium Potassium Chloride Carbon Dioxide BUN Creatinine Glucose POC Glucose > 500 H > 500 H Phosphorus Magnesium Alkaline Phosphatase Albumin 12/21/18 12/21/18 12/21/18 13:21 13:33 13:33 WBC Seg Neuts % (Manual) Lymphocytes % (Manual) Seg Neutrophils # Man Lymphocytes # (Manual) Basophils # (Manual) VBG pH Sodium 130 L Potassium Chloride 89.4 L Carbon Dioxide BUN 28 H Creatinine Glucose 697 H* POC Glucose > 500 H Phosphorus 2.20 L Magnesium 1.50 L Alkaline Phosphatase Albumin 12/21/18 12/21/18 12/21/18 13:33 14:43 14:54 WBC Seg Neuts % (Manual) Lymphocytes % (Manual) Seg Neutrophils # Man Lymphocytes # (Manual) Basophils # (Manual) VBG pH Sodium 134 L Potassium Chloride 94.1 L Carbon Dioxide 21 L BUN 27 H Creatinine Glucose 684 H* 564 H* POC Glucose > 500 H Phosphorus Magnesium Alkaline Phosphatase Albumin 12/21/18 12/21/18 12/21/18 14:54 15:34 16:40 WBC Seg Neuts % (Manual) Lymphocytes % (Manual) Seg Neutrophils # Man Lymphocytes # (Manual) Basophils # (Manual) VBG pH Sodium Potassium Chloride Carbon Dioxide BUN Creatinine Glucose 569 H* POC Glucose 495 H 367 H Phosphorus Magnesium Alkaline Phosphatase Albumin 12/21/18 12/21/18 12/21/18 17:30 17:54 18:06 WBC Seg Neuts % (Manual) Lymphocytes % (Manual) Seg Neutrophils # Man Lymphocytes # (Manual) Basophils # (Manual) VBG pH Sodium Potassium 3.5 L Chloride Carbon Dioxide BUN 24 H Creatinine Glucose 260 H POC Glucose 297 H 266 H Phosphorus Magnesium Alkaline Phosphatase Albumin 12/21/18 12/21/18 12/21/18 18:52 19:48 21:28 WBC Seg Neuts % (Manual) Lymphocytes % (Manual) Seg Neutrophils # Man Lymphocytes # (Manual) Basophils # (Manual) VBG pH Sodium Potassium 3.4 L Chloride Carbon Dioxide BUN 25 H Creatinine 1.3 H Glucose 108 H POC Glucose 215 H 158 H Phosphorus Magnesium Alkaline Phosphatase Albumin 12/21/18 12/21/18 12/22/18 22:16 23:12 00:02 WBC Seg Neuts % (Manual) Lymphocytes % (Manual) Seg Neutrophils # Man Lymphocytes # (Manual) Basophils # (Manual) VBG pH Sodium Potassium Chloride Carbon Dioxide BUN Creatinine Glucose POC Glucose 180 H 199 H 185 H Phosphorus Magnesium Alkaline Phosphatase Albumin 12/22/18 12/22/18 12/22/18 01:03 01:58 03:20 WBC Seg Neuts % (Manual) Lymphocytes % (Manual) Seg Neutrophils # Man Lymphocytes # (Manual) Basophils # (Manual) VBG pH Sodium Potassium Chloride Carbon Dioxide BUN Creatinine Glucose POC Glucose 197 H 192 H 132 H Phosphorus Magnesium Alkaline Phosphatase Albumin 12/22/18 12/22/18 12/22/18 04:30 04:55 05:39 WBC Seg Neuts % (Manual) Lymphocytes % (Manual) Seg Neutrophils # Man Lymphocytes # (Manual) Basophils # (Manual) VBG pH Sodium Potassium 3.4 L Chloride Carbon Dioxide BUN 23 H Creatinine Glucose 132 H POC Glucose 135 H 130 H Phosphorus Magnesium Alkaline Phosphatase Albumin 3.4 L 12/22/18 12/22/18 12/22/18 09:20 12:36 16:24 WBC Seg Neuts % (Manual) Lymphocytes % (Manual) Seg Neutrophils # Man Lymphocytes # (Manual) Basophils # (Manual) VBG pH Sodium Potassium Chloride Carbon Dioxide BUN Creatinine Glucose POC Glucose 193 H 204 H 254 H Phosphorus Magnesium Alkaline Phosphatase Albumin 12/22/18 12/23/18 12/23/18 20:20 04:21 04:21 WBC 15.7 H Seg Neuts % (Manual) 83.0 H Lymphocytes % (Manual) 12.0 L Seg Neutrophils # Man 13.0 H Lymphocytes # (Manual) Basophils # (Manual) 0.2 H VBG pH Sodium 136 L Potassium Chloride 95.9 L Carbon Dioxide 17 L BUN 19 H Creatinine 1.3 H Glucose 280 H POC Glucose 170 H Phosphorus Magnesium Alkaline Phosphatase Albumin 12/23/18 12/23/18 12/23/18 04:59 08:28 12:27 WBC Seg Neuts % (Manual) Lymphocytes % (Manual) Seg Neutrophils # Man Lymphocytes # (Manual) Basophils # (Manual) VBG pH Sodium Potassium Chloride Carbon Dioxide BUN Creatinine Glucose POC Glucose 328 H 333 H 235 H Phosphorus Magnesium Alkaline Phosphatase Albumin Assessment and Plan 73 YR OLD FEMALE WITH HISTORY OF HYPERTENSION,DIABTES ASTHMA,AND DEMENTIA WHO WAS BROUGHT BY HER SON TO [facility] BECAUSE OF APPARENT ALTERED MENTAL STATUS ,IN THAT SHE WAS NOT TAKING HER MEDICATION AND WAS CONFUSED. WORK UP AFTER ADMIISION SHOWED GLUCOSE OF 900,EVIDENCE OF DEHYDRATION AND EVIDENCE OF INFECTION WITH INCREASED WBC WITH INCREASED NEUTROPHIL COUNT, PATIENT ALSO HAD ELEVATED BLOOD PRESSURE WITH SYSTOLIC BEING [address] SCAN OF THE BRAIN DID NOT SHOW ANY ACUTE CHANGE, PATIENT DEVELOPED AN EPISODE OF SEIZURE THIS MORNING FOLLOWING WHICH KEPPRA 1000MG BID HAS BEEN STARTED. PATIENT IHAS ALSO BEEN ON ANTIBIOTIC. PHYSICAL EXAMINATION PATIENT IS ALERT AND AWAKE.DOES NOT ANSWER QUESTIONS,VERBALLY UNRESPONSIVE, SPORADICALLY MAKES EYE CONTACT,PUPILS REACT TO LIGHT HAS SPONTANEOUS BLINKING, FOLLOWS SIMPLE COMMAND INCONSTANTLY, MOTOR- MOVES EXTREMITIES ,MOSTLY BOTH UPPER ,NO ASYMMETRY OF STRENGTH WAS NOTED APPARENTLY WITH IN NLIMITATION OF EXAMINATION DUE TO PATIENT'S CURRENT MENTAL STATUS. REFLEXES- GENERALIZED HYPO REFLEXIA WITH BILATERAL DOWN GOING TOES. SENSORY- SENSORY EXAMINATION COULD NOT BE PERFORMED AT PATIENT'S CURRENT MENTAL STATUS. IMPRESSION. 1. SEPTIC METABOLIC AND HYPERTENSIVE ENCEPHALOPATHY SUPER IMPOSED ON HYPER OSMOLAR CONFUSION, WITH IMPROVEMENT ON INSULIN, HYDRATION AND ANTIBIOTICS. 2. SEIZURE UNDER CONTROL ON KEPPRA [employer]. 1. PATIENT SEEMS TO BE IMPROVING FROM BASE LINE STATUS OF ADMISSION 2. CONTINUE CURRENT REGIMEN. ONCE COMES OUT OF ACUTE STAGE WILL EVALUATE AGAIN TO DETERMINE THE TREATMENT REGIMEN FOR DEMENTIA.
[2018-12-24] MEDS: HEPARIN 5,000 UNIT/1 ML VIAL SUB-Q SCH ×3 (00:12→22:07)
[2018-12-24] MEDS: INSULIN REGULAR, HUMAN 100 UNITS/1 ML SUB-Q SCH ×4 (00:13→17:39)
[2018-12-24] MEDS: RANOLAZINE ER 500 MG TAB 12HR PO SCH ×3 (00:14→22:08)
[2018-12-24] MEDS: levETIRAcetam 1,000 MG in DEXTROSE 5% IN WATER 100 ML IV SCH ×2 (05:37→17:39)
[2018-12-24] MEDS: D5W/0.45% NACL 1,000 ML IV SCH ×2 (06:04→22:10)
--- NOTE | 2018-12-24 09:54 | Progress Note ---
Assessment and Plan PATIENT SEEMS MUCH BETTER TODAY, BLOOD GLUCOSE IS DOWN TO 171 FROM 900 PRIOR TO ADMISSION. BLOOD PRESSURE IS ALSO NORMAL 135/78.SEPSIS HAS RESPONDED TO ANTIBIOTICS.NO LABS DRAWN THIS MORNING, PHYSICAL EXAMINATION- ALERT AND AWAKE,MAKES EYE CONTACT, KNOWS SHE IS IN THE HOSPITAL AND KNOWS THAT SHE LIVES IN [facility] WITH HER SON, HAS VERY CLEAR INFORMATION ABOUT FAMILY AND SOCIAL DEMOGRAPHICS.ON FORMAL MEMORY TESTING SHE WAS FOUND TO HAVE IMPAIRED SHORT TERM MEMORY, RECALL WAS 2/3 IN 3 MINUTES. JUDGEMENT WAS INTACT,HAS IMPAIRED CALCULATION. HEART-NORMAL RATE AND RHYTHM, CAROTIDS- BOTH PALPABLE, CRANIAL NERVES - ALL WITH IN NORMAL LIMIT, MOTOR- NO ASYMMETRY OF STRENGTH WAS NOTED,PATIENT WAS NOT VERY COOPERATIVE WITH MOTOR EXAMINATION, REFLEXES- NO ASYMMETRY OF REFLEXES,HAS GENERALIZED HYPO REFLEXIA WITH BILATERAL DOWN GOING TOES. SENSORY- SENSORY EXAMINATION SEEMED TO BE WITH IN NORMAL LIMIT WITH IN NLIMITATION OF EXAMINATION, SEEMED TO HAVE LITTLE HYPERESTHESIA IN BOTH FEET AND LEG, MAY BE FROM DIABETIC NEUROPATHY. IMPRESSION 1. SEPTIC/METABOLIC ENCEPHALOPATHY SIGNIFICANTLY IMPROVED 2, HYPERTENSIVE ENCEPHALOPATHY, RESOLVED WITH BP CONTROL 3. SEIZURE UNDER CONTROL ON KEPPRA 4. DEMENTIA CONTRIBUTING TO MEDICATION IN COMPLIANCE RECOMMEND. 1. CONTINUE KEPPRA 2. PLEASE CHECK T4,TSH,VIT B12 LEVEL TO LOOK FOR TREATABLE CAUSE OF DEMENTIA 3. PLEASE START HER ON DONEPEZIL 5MG QHS MAY HAVE TO INCREASE TO 10 MG IF NEEDED 4. NEUROLOGY FOLLOW UP FOR DIABETIC NEUROPATHY AND DEMENTIA OUT PATIENT. Objective - Vital Sign Vital Signs - 12hr 12/23/18 12/23/18 12/23/18 22:00 22:30 23:00 Temperature Pulse Rate 89 92 H 91 H Pulse Rate [ From Monitor] Respiratory 17 15 18 Rate Blood Pressure 166/47 166/47 159/55 O2 Sat by Pulse 94 98 93 Oximetry 12/23/18 12/24/18 12/24/18 23:30 00:00 00:30 Temperature 98.3 F Pulse Rate 89 89 90 Pulse Rate [ From Monitor] Respiratory 17 19 17 Rate Blood Pressure 159/55 159/55 164/49 O2 Sat by Pulse 96 97 97 Oximetry 12/24/18 12/24/18 12/24/18 01:00 01:30 02:00 Temperature Pulse Rate 93 H 91 H 87 Pulse Rate [ From Monitor] Respiratory 17 18 16 Rate Blood Pressure 164/49 163/54 163/54 O2 Sat by Pulse 98 98 98 Oximetry 12/24/18 12/24/18 12/24/18 02:30 03:00 03:30 Temperature Pulse Rate 89 90 90 Pulse Rate [ From Monitor] Respiratory 16 18 17 Rate Blood Pressure 158/50 158/50 161/53 O2 Sat by Pulse 98 98 99 Oximetry 12/24/18 12/24/18 12/24/18 04:00 04:30 05:00 Temperature 98.2 F Pulse Rate 78 96 H 89 Pulse Rate [ 98 H From Monitor] Respiratory 13 18 17 Rate Blood Pressure 147/43 147/43 160/54 O2 Sat by Pulse 94 100 95 Oximetry 12/24/18 12/24/18 12/24/18 05:30 06:00 06:30 Temperature Pulse Rate 96 H 83 85 Pulse Rate [ From Monitor] Respiratory 15 12 15 Rate Blood Pressure 160/54 160/54 177/68 O2 Sat by Pulse 96 96 97 Oximetry 12/24/18 12/24/18 07:00 07:30 Temperature Pulse Rate 78 86 Pulse Rate [ From Monitor] Respiratory 13 15 Rate Blood Pressure 177/68 135/50 O2 Sat by Pulse 96 97 Oximetry - Laboratory Findings CBC and BMP: 12/23/18 04:21 12/23/18 04:21 Abnormal Lab Findings: Abnormal Labs 12/21/18 12/21/18 12/21/18 08:46 09:24 09:24 WBC Seg Neuts % (Manual) 86.0 H Lymphocytes % (Manual) 7.0 L Seg Neutrophils # Man Lymphocytes # (Manual) 0.6 L Basophils # (Manual) VBG pH Sodium 126 L Potassium Chloride 83.5 L Carbon Dioxide BUN 30 H Creatinine 1.3 H Glucose 951 H* POC Glucose > 500 H Phosphorus Magnesium Alkaline Phosphatase 167 H Albumin 12/21/18 12/21/18 12/21/18 09:24 10:46 12:29 WBC Seg Neuts % (Manual) Lymphocytes % (Manual) Seg Neutrophils # Man Lymphocytes # (Manual) Basophils # (Manual) VBG pH 7.299 L Sodium Potassium Chloride Carbon Dioxide BUN Creatinine Glucose POC Glucose > 500 H > 500 H Phosphorus Magnesium Alkaline Phosphatase Albumin 12/21/18 12/21/18 12/21/18 13:21 13:33 13:33 WBC Seg Neuts % (Manual) Lymphocytes % (Manual) Seg Neutrophils # Man Lymphocytes # (Manual) Basophils # (Manual) VBG pH Sodium 130 L Potassium Chloride 89.4 L Carbon Dioxide BUN 28 H Creatinine Glucose 697 H* POC Glucose > 500 H Phosphorus 2.20 L Magnesium 1.50 L Alkaline Phosphatase Albumin 12/21/18 12/21/18 12/21/18 13:33 14:43 14:54 WBC Seg Neuts % (Manual) Lymphocytes % (Manual) Seg Neutrophils # Man Lymphocytes # (Manual) Basophils # (Manual) VBG pH Sodium 134 L Potassium Chloride 94.1 L Carbon Dioxide 21 L BUN 27 H Creatinine Glucose 684 H* 564 H* POC Glucose > 500 H Phosphorus Magnesium Alkaline Phosphatase Albumin 12/21/18 12/21/18 12/21/18 14:54 15:34 16:40 WBC Seg Neuts % (Manual) Lymphocytes % (Manual) Seg Neutrophils # Man Lymphocytes # (Manual) Basophils # (Manual) VBG pH Sodium Potassium Chloride Carbon Dioxide BUN Creatinine Glucose 569 H* POC Glucose 495 H 367 H Phosphorus Magnesium Alkaline Phosphatase Albumin 12/21/18 12/21/18 12/21/18 17:30 17:54 18:06 WBC Seg Neuts % (Manual) Lymphocytes % (Manual) Seg Neutrophils # Man Lymphocytes # (Manual) Basophils # (Manual) VBG pH Sodium Potassium 3.5 L Chloride Carbon Dioxide BUN 24 H Creatinine Glucose 260 H POC Glucose 297 H 266 H Phosphorus Magnesium Alkaline Phosphatase Albumin 12/21/18 12/21/18 12/21/18 18:52 19:48 21:28 WBC Seg Neuts % (Manual) Lymphocytes % (Manual) Seg Neutrophils # Man Lymphocytes # (Manual) Basophils # (Manual) VBG pH Sodium Potassium 3.4 L Chloride Carbon Dioxide BUN 25 H Creatinine 1.3 H Glucose 108 H POC Glucose 215 H 158 H Phosphorus Magnesium Alkaline Phosphatase Albumin 12/21/18 12/21/18 12/22/18 22:16 23:12 00:02 WBC Seg Neuts % (Manual) Lymphocytes % (Manual) Seg Neutrophils # Man Lymphocytes # (Manual) Basophils # (Manual) VBG pH Sodium Potassium Chloride Carbon Dioxide BUN Creatinine Glucose POC Glucose 180 H 199 H 185 H Phosphorus Magnesium Alkaline Phosphatase Albumin 12/22/18 12/22/18 12/22/18 01:03 01:58 03:20 WBC Seg Neuts % (Manual) Lymphocytes % (Manual) Seg Neutrophils # Man Lymphocytes # (Manual) Basophils # (Manual) VBG pH Sodium Potassium Chloride Carbon Dioxide BUN Creatinine Glucose POC Glucose 197 H 192 H 132 H Phosphorus Magnesium Alkaline Phosphatase Albumin 12/22/18 12/22/18 12/22/18 04:30 04:55 05:39 WBC Seg Neuts % (Manual) Lymphocytes % (Manual) Seg Neutrophils # Man Lymphocytes # (Manual) Basophils # (Manual) VBG pH Sodium Potassium 3.4 L Chloride Carbon Dioxide BUN 23 H Creatinine Glucose 132 H POC Glucose 135 H 130 H Phosphorus Magnesium Alkaline Phosphatase Albumin 3.4 L 12/22/18 12/22/18 12/22/18 09:20 12:36 16:24 WBC Seg Neuts % (Manual) Lymphocytes % (Manual) Seg Neutrophils # Man Lymphocytes # (Manual) Basophils # (Manual) VBG pH Sodium Potassium Chloride Carbon Dioxide BUN Creatinine Glucose POC Glucose 193 H 204 H 254 H Phosphorus Magnesium Alkaline Phosphatase Albumin 12/22/18 12/23/18 12/23/18 20:20 04:21 04:21 WBC 15.7 H Seg Neuts % (Manual) 83.0 H Lymphocytes % (Manual) 12.0 L Seg Neutrophils # Man 13.0 H Lymphocytes # (Manual) Basophils # (Manual) 0.2 H VBG pH Sodium 136 L Potassium Chloride 95.9 L Carbon Dioxide 17 L BUN 19 H Creatinine 1.3 H Glucose 280 H POC Glucose 170 H Phosphorus Magnesium Alkaline Phosphatase Albumin 12/23/18 12/23/18 12/23/18 04:59 08:28 12:27 WBC Seg Neuts % (Manual) Lymphocytes % (Manual) Seg Neutrophils # Man Lymphocytes # (Manual) Basophils # (Manual) VBG pH Sodium Potassium Chloride Carbon Dioxide BUN Creatinine Glucose POC Glucose 328 H 333 H 235 H Phosphorus Magnesium Alkaline Phosphatase Albumin 12/24/18 12/24/18 00:09 05:51 WBC Seg Neuts % (Manual) Lymphocytes % (Manual) Seg Neutrophils # Man Lymphocytes # (Manual) Basophils # (Manual) VBG pH Sodium Potassium Chloride Carbon Dioxide BUN Creatinine Glucose POC Glucose 125 H 171 H Phosphorus Magnesium Alkaline Phosphatase Albumin
[2018-12-24] MEDS: INSULIN NPH/REGULAR 70/30 INJ SUB-Q SCH ×2 (10:01→17:38)
[2018-12-24] MEDS: METOPROLOL TARTRATE 25 MG TAB PO SCH (10:01)
--- NOTE | 2018-12-24 13:47 | Magnetic Resonance Report ---
MRI BRAIN WITHOUT CONTRAST INDICATION / CLINICAL INFORMATION: Seizure. TECHNIQUE: Multisequence, multiplanar images were obtained. COMPARISON: CT head dated 12/23/2018 FINDINGS: CEREBRAL and CEREBELLAR HEMISPHERES: No evidence of mass or mass effect. No midline shift. No acute hemorrhage. No diffusion restriction to suggest acute infarct. No extra-axial fluid collection. M ild diffuse cortical volume loss and mild chronic periventricular white matter changes are noted. No chronic infarct, mass or mass effect. The medial temporal lobes are symmetric and unremarkable. VENTRICLES: Normal in size and configuration for age. VISUALIZED ORBITS: No significant abnormality. VISUALIZED PARANASAL SINUSES: Mild mucosal thickening is noted throughout all paranasal sinuses. No f luid level or opacification. Normal mastoid air cells. ADDITIONAL FINDINGS: None. IMPRESSION: Age appropriate volume loss and chronic white matter changes. No acute intracranial process, mass or hemorrhage. Signer Name: Shravan Ambrose Jr, MD Signed: 12/24/2018 1:43 PM Workstation Name: [id number]
--- NOTE | 2018-12-24 14:16 | Progress Note ---
Assessment and Plan Assessment and plan: Seizure disorder. ? New onset. Check EEG, MRI with no acute findings.. Neurology following. Continue Keppra IV twice a day and Ativan when necessary DKA. Resolved. Patient will be transitioned to twice a day long-acting insulin and transferred to the floor0. Metabolic encephalopathy. Resolved. Patient back to her baseline mental status. Acute kidney injury. Etiology secondary to vasomotor nephropathy. Continue IV fluid hydration. Follow-up BMP. Accelerated hypertension. Continue antihypertensive medications. History Interval history: 73 YO Female with DM, HTN, Debility, Dementia, Charcot Disease presents to ED for evaluation. 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 Pt has had increased bedbound status, and currently requires time study technologist assistance with activities of daily living. EMS notified, and upon arrival the patient was found to be in distress and transported to [facility]. Pt seen and evaluated in ED and found to have DKA with blood glucose above 900, as well as Hypertensive Emergency with BP of 243/111, as well as CHANDRIKA, and Metabolic Encephalopathy. Pt Admitted to ICU and initiated on DKA protocol, as well as IV Hydralazine for blood pressure control. The patient was later transitioned to long-acting insulin off of IV insulin drip. DKA resolved. However, on the evening of 12/22/18 patient developed seizure activity. No re port of any seizure disorder history. The patient was treated with Ativan and Keppra IV and transferred to the ICU for closer monitoring. Upon my evaluation this morning, patient is noted to be somnolent and lethargic Hospitalist Physical - Constitutional Vitals: Temp Pulse Resp BP Pulse Ox 97.4 F L 75 13 139/46 100 12/24/18 12:00 12/24/18 12:00 12/24/18 12:00 12/24/18 13:38 12/24/18 13:38 General appearance: Present: no acute distress - EENT Eyes: Present: PERRL, EOM intact ENT: hearing intact, clear oral mucosa, dentition normal - Neck Neck: Present: supple, normal ROM - Respiratory Respiratory effort: normal Respiratory: bilateral: CTA - Cardiovascular Rhythm: regular Heart Sounds: Present: S1 & S2. Absent: gallop, rub - Extremities Extremities: no ischemia, No edema, Full ROM - Abdominal General gastrointestinal: soft, non-tender, non-distended, normal bowel sounds - Integumentary Integumentary: Present: clear, warm, dry - Neurologic Neurologic: CNII-XII intact, moves all extremities Results - Labs CBC & Chem 7: 12/23/18 04:21 12/23/18 04:21 Labs: Laboratory Last Values WBC 15.7 K/mm3 (4.5-11.0) H 12/23/18 04:21 RBC 3.96 M/mm3 (3.65-5.03) 12/23/18 04:21 Hgb 11.3 gm/dl (10.1-14.3) 12/23/18 04:21 Hct 34.6 % (30.3-42.9) 12/23/18 04:21 MCV 88 fl (79-97) 12/23/18 04:21 MCH 28 pg (28-32) 12/23/18 04:21 MCHC 33 % (30-34) 12/23/18 04:21 RDW 14.3 % (13.2-15.2) 12/23/18 04:21 Plt Count 234 K/mm3 (140-440) 12/23/18 04:21 Add Manual Diff Complete 12/23/18 04:21 Total Counted 100 12/23/18 04:21 Seg Neutrophils % Athletic Shoe Designer 12/21/18 09:24 Seg Neuts % (Manual) 83.0 % (40.0-70.0) H 12/23/18 04:21 Band Neutrophils % 0 % 12/23/18 04:21 Lymphocytes % (Manual) 12.0 % (13.4-35.0) L 12/23/18 04:21 Reactive Lymphs % (Man) 0 % 12/23/18 04:21 Monocytes % (Manual) 2.0 % (0.0-7.3) 12/23/18 04:21 Eosinophils % (Manual) 0 % (0.0-4.3) 12/23/18 04:21 Basophils % (Manual) 1.0 % (0.0-1.8) 12/23/18 04:21 Metamyelocytes % 2.0 % 12/23/18 04:21 Myelocytes % 0 % 12/23/18 04:21 Promyelocytes % 0 % 12/23/18 04:21 Blast Cells % 0 % 12/23/18 04:21 Nucleated RBC % Not Reportable 12/23/18 04:21 Seg Neutrophils # Man 13.0 K/mm3 (1.8-7.7) H 12/23/18 04:21 Band Neutrophils # 0.0 K/mm3 12/23/18 04:21 Lymphocytes # (Manual) 1.9 K/mm3 (1.2-5.4) 12/23/18 04:21 Abs React Lymphs (Man) 0.0 K/mm3 12/23/18 04:21 Monocytes # (Manual) 0.3 K/mm3 (0.0-0.8) 12/23/18 04:21 Eosinophils # (Manual) 0.0 K/mm3 (0.0-0.4) 12/23/18 04:21 Basophils # (Manual) 0.2 K/mm3 (0.0-0.1) H 12/23/18 04:21 Metamyelocytes # 0.3 K/mm3 12/23/18 04:21 Myelocytes # 0.0 K/mm3 12/23/18 04:21 Promyelocytes # 0.0 K/mm3 12/23/18 04:21 Blast Cells # 0.0 K/mm3 12/23/18 04:21 WBC Morphology Not Reportable 12/23/18 04:21 Hypersegmented Neuts Not Reportable 12/23/18 04:21 Hyposegmented Neuts Not Reportable 12/23/18 04:21 Hypogranular Neuts Not Reportable 12/23/18 04:21 Smudge Cells Not Reportable 12/23/18 04:21 Toxic Granulation Not Reportable 12/23/18 04:21 Toxic Vacuolation Not Reportable 12/23/18 04:21 Dohle Bodies Not Reportable 12/23/18 04:21 Pelger-Huet Anomaly Not Reportable 12/23/18 04:21 Saul Rods Not Reportable 12/23/18 04:21 Platelet Estimate Consistent w auto 12/23/18 04:21 Clumped Platelets Not Reportable 12/23/18 04:21 Plt Clumps, EDTA Not Reportable 12/23/18 04:21 Large Platelets Not Reportable 12/23/18 04:21 Giant Platelets Not Reportable 12/23/18 04:21 Platelet Satelliting Not Reportable 12/23/18 04:21 Plt Morphology Comment Not Reportable 12/23/18 04:21 RBC Morphology Normal 12/23/18 04:21 Dimorphic RBCs Not Reportable 12/23/18 04:21 Polychromasia Not Reportable 12/23/18 04:21 Hypochromasia Not Reportable 12/23/18 04:21 Poikilocytosis Not Reportable 12/23/18 04:21 Anisocytosis Not Reportable 12/23/18 04:21 Microcytosis Not Reportable 12/23/18 04:21 Macrocytosis Not Reportable 12/23/18 04:21 Spherocytes Not Reportable 12/23/18 04:21 Pappenheimer Bodies Not Reportable 12/23/18 04:21 Sickle Cells Not Reportable 12/23/18 04:21 Target Cells Not Reportable 12/23/18 04:21 Tear Drop Cells Not Reportable 12/23/18 04:21 Ovalocytes Not Reportable 12/23/18 04:21 Helmet Cells Not Reportable 12/23/18 04:21 [place] Bodies Not Reportable 12/23/18 04:21 Tarzan Rings Not Reportable 12/23/18 04:21 Cutler Cells Not Reportable 12/23/18 04:21 Bite Cells Not Reportable 12/23/18 04:21 Crenated Cell Not Reportable 12/23/18 04:21 Elliptocytes Not Reportable 12/23/18 04:21 Acanthocytes (Spur) Not Reportable 12/23/18 04:21 Rouleaux Not Reportable 12/23/18 04:21 Hemoglobin C Crystals Not Reportable 12/23/18 04:21 Schistocytes Not Reportable 12/23/18 04:21 Malaria parasites Not Reportable 12/23/18 04:21 Sid Bodies Not Reportable 12/23/18 04:21 Hem Pathologist Commnt No 12/23/18 04:21 VBG pH 7.299 (7.320-7.420) L 12/21/18 09:24 Sodium 136 mmol/L (137-145) L 12/23/18 04:21 Potassium 4.6 mmol/L (3.6-5.0) D 12/23/18 04:21 Chloride 95.9 mmol/L (98-107) L 12/23/18 04:21 Carbon Dioxide 17 mmol/L (22-30) L 12/23/18 04:21 Anion Gap 28 mmol/L 12/23/18 04:21 BUN 19 mg/dL (7-17) H 12/23/18 04:21 Creatinine 1.3 mg/dL (0.7-1.2) H 12/23/18 04:21 Estimated GFR 40 ml/min 12/23/18 04:21 BUN/Creatinine Ratio 15 % 12/23/18 04:21 Glucose 280 mg/dL (65-100) H 12/23/18 04:21 POC Glucose 221 (70-105) H 12/24/18 12:17 Calcium 9.1 mg/dL (8.4-10.2) 12/23/18 04:21 Phosphorus 2.20 mg/dL (2.5-4.5) L 12/21/18 13:33 Magnesium 1.50 mg/dL (1.7-2.3) L 12/21/18 13:33 Total Bilirubin 0.30 mg/dL (0.1-1.2) 12/22/18 04:55 AST 16 units/L (5-40) 12/22/18 04:55 ALT 8 units/L (7-56) 12/22/18 04:55 Alkaline Phosphatase 124 units/L (35-129) 12/22/18 04:55 Total Protein 6.9 g/dL (6.3-8.2) 12/22/18 04:55 Albumin 3.4 g/dL (3.9-5) L 12/22/18 04:55 Albumin/Globulin Ratio 1.0 % 12/22/18 04:55 Urine Color Yellow (Yellow) 12/21/18 Unknown Urine Turbidity Clear (Clear) 12/21/18 Unknown Urine pH 5.0 (5.0-7.0) 12/21/18 Unknown Ur Specific [place] 1.018 (1.003-1.030) 12/21/18 Unknown Urine Protein >500 mg/dL (Negative) 12/21/18 Unknown Urine Glucose (UA) >=500 mg/dL (Negative) 12/21/18 Unknown Urine Ketones Tr mg/dL (Negative) 12/21/18 Unknown Urine Blood Mod (Negative) 12/21/18 Unknown Urine Nitrite Neg (Negative) 12/21/18 Unknown Urine Bilirubin Neg (Negative) 12/21/18 Unknown Urine Urobilinogen < 2.0 mg/dL (<2.0) 12/21/18 Unknown Ur Leukocyte Esterase Neg (Negative) 12/21/18 Unknown Urine WBC (Auto) 1.0 /HPF (0.0-6.0) 12/21/18 Unknown Urine RBC (Auto) 1.0 /HPF (0.0-6.0) 12/21/18 Unknown Urine Mucus Few /HPF 12/21/18 09:11 Active Medications - Current Medications Current Medications: Generic Name Dose Route Start Last Admin Trade Name Freq PRN Reason Stop Dose Admin Acetaminophen 650 mg 12/21/18 12:16 12/22/18 15:50 Tylenol PO 650 mg Q4H PRN Administration Pain MILD(1-3)/Fever >100.5/BROWN Dextrose 50 ml 12/22/18 08:02 D50w (25gm) Syringe IV PRN PRN Hypoglycemia Heparin Sodium (Porcine) 5,000 unit 12/21/18 22:00 12/24/18 10:02 Heparin SUB-Q 5,000 unit Q12HR LORENA Administration Levetiracetam 1,000 mg/ 110 mls @ 400 mls/hr 12/23/18 05:00 12/24/18 05:37 Dextrose IV 400 mls/hr Q12H LORENA Administration Levofloxacin/Dextrose 750 mg in 150 mls @ 100 mls/hr 12/25/18 10:00 Levaquin 750mg/150ml IV 12/25/18 23:59 Q48HR LORENA Protocol Dextrose/Sodium Chloride 1,000 mls @ 75 mls/hr 12/23/18 17:00 12/24/18 06:04 D5/0.45ns IV 75 mls/hr DIRECT LORENA Administration Insulin Human Isoph/Insulin Regular 20 unit 12/22/18 09:00 12/24/18 10:01 Humulin 70/30 SUB-Q 20 unit BIDDIAB LORENA Administration Insulin Human Regular 0 units 12/22/18 09:00 12/24/18 13:51 Humulin R SUB-Q 3 units ACHS LORENA Administration Protocol Lorazepam 1 mg 12/23/18 05:52 Ativan IV Q4H PRN Seizures Metoprolol Tartrate 25 mg 12/22/18 10:00 12/24/18 10:01 Lopressor PO 25 mg DAILY LORENA Administration Ranolazine 500 mg 12/21/18 22:00 12/24/18 13:55 Ranexa Er PO Not Given BID LORENA Sodium Chloride 10 ml 12/21/18 22:00 12/24/18 10:02 Sodium Chloride Flush Syringe 10 Ml IV 10 ml BID LORENA Administration Sodium Chloride 10 ml 12/21/18 12:13 Sodium Chloride Flush Syringe 10 Ml IV PRN PRN LINE FLUSH Nutrition/Malnutrition Assess - Dietary Evaluation Nutrition/Malnutrition Findings: Nutrition Notes Start: 12/22/18 09:37 Freq: Status: Active Protocol: Document 12/24/18 10:01 MARISOL (Rec: 12/24/18 10:29 KS [id number]) Co-Sign 12/24/18 10:01 LM Nutrition Notes Initial or Follow up Reassessment Current Diagnosis Acute Kidney Injury,Diabetes, Hypertension Other Pertinent Diagnosis Metabolic encephalopathy, dementia, charcot disease Current Diet NPO Labs/Tests POC Glu 171 As of 12/23/18: Na 136 BUN 19 CR 1.3 Glu 280 Pertinent Medications Reviewed Height 5 ft 4 in Weight 87.7 kg [place] Body Weight (kg) 54.54 BMI 33.2 Weight change and time frame wt change noted Weight Status Obese Subjective/Other Information Pt was highly disoriented at time of visit. Pt remains NPO due to failed swallow test. Burn Absent Trauma Absent Minimum of two criteria No #1 Nutrition Diagnosis Inadequate oral intake Diagnosis Progress(for reassessment Continues documentation) Is patient on ventilator? No Is Patient Ambulatory and/or Out of Bed No REE-([place] Jeor-confined to bed) [phone] Calculation Used for Recommendations [facility] Additional Notes Protein needs: 82g-98g/kg (1g- 1.2g/kg) Fluid needs: 1kcal/kg Nutrition Intervention Change Diet Order: Recommend SETTER [employer] EQUIPMENT eval Goal #1 Meet at leat 75% of energy and protein needs Goal #2 Diet advancement Anticipated Discharge Needs: Unable to determine at this time Follow-Up By: 12/27/18 Additional Comments F/U for diet advancement and PO intakes
[2018-12-24 15:00] LABS: Basophils % (Auto) 0.3 % (0.0-1.8); Eosinophils # (Auto) 0.2 K/mm3 (0.0-0.4); Eosinophils % (Auto) 2.2 % (0.0-4.3); Hematocrit 34.2 % (30.3-42.9); Hemoglobin 11.9 gm/dl (10.1-14.3); Lymphocytes # (Auto) 1.1 K/mm3 (1.2-5.4); Lymphocytes % (Auto) 9.7 % (13.4-35.0); Mean Corpuscular HGB Conc 35 % (30-34); Mean Corpuscular Volume 86 fl (79-97); Monocytes # (Auto) 0.9 K/mm3 (0.0-0.8); Monocytes % (Auto) 8.3 % (0.0-7.3); Platelet Count 207 K/mm3 (140-440); Red Blood Count 3.99 M/mm3 (3.65-5.03); Red Cell Distribution Width 14.4 % (13.2-15.2)
[2018-12-24 16:09] LABS: Calcium 8.3 mg/dL (8.4-10.2)
[2018-12-25 06:06] LABS: Hematocrit 33.4 % (30.3-42.9); Hemoglobin 11.3 gm/dl (10.1-14.3); Mean Corpuscular HGB Conc 34 % (30-34); Mean Corpuscular Volume 85 fl (79-97); Platelet Count 223 K/mm3 (140-440); Red Blood Count 3.94 M/mm3 (3.65-5.03); Red Cell Distribution Width 14.3 % (13.2-15.2)
[2018-12-25 06:07] LABS: Basophils % (Auto) 0.4 % (0.0-1.8); Eosinophils # (Auto) 0.3 K/mm3 (0.0-0.4); Eosinophils % (Auto) 2.3 % (0.0-4.3); Lymphocytes # (Auto) 1.4 K/mm3 (1.2-5.4); Lymphocytes % (Auto) 12.2 % (13.4-35.0); Monocytes % (Auto) 8.3 % (0.0-7.3)
[2018-12-25] MEDS: INSULIN REGULAR, HUMAN 100 UNITS/1 ML SUB-Q SCH ×5 (06:17→22:13)
[2018-12-25] MEDS: levETIRAcetam 1,000 MG in DEXTROSE 5% IN WATER 100 ML IV SCH ×2 (06:18→17:53)
[2018-12-25 07:04] LABS: BUN/Creatinine Ratio 12; Blood Urea Nitrogen 11 mg/dL (7-17); Calcium 7.2 mg/dL (8.4-10.2); Hemolysis Index 3
--- NOTE | 2018-12-25 10:03 | Progress Note ---
Assessment and Plan Assessment and plan: Hypokalemia. Replete potassium. Check magnesium. Seizure disorder. ? New onset. Check EEG, MRI with no acute findings.. Neurology following. Continue Keppra IV twice a day and Ativan when necessary Toxic metabolic encephalopathy. Resolved. DKA. Resolved. Patient will be transitioned to twice a day long-acting insulin and transferred to the floor0. Acute kidney injury. Etiology secondary to vasomotor nephropathy. Continue IV fluid hydration. Follow-up BMP. Accelerated hypertension. Continue antihypertensive medications. History Interval history: 73 YO Female with DM, HTN, Debility, Dementia, Charcot Disease presents to ED for evaluation. 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 Pt has had increased bedbound status, and currently requires time study engineer assistance with activities of daily living. EMS notified, and upon arrival the patient was found to be in distress and transported to [facility]. Pt seen and evaluated in ED and found to have DKA with blood glucose above 900, as well as Hypertensive Emergency with BP of 243/111, as well as CHANDRIKA, and Metabolic Encephalopathy. Pt Admitted to ICU and initiated on DKA protocol, as well as IV Hydralazine for blood pressure control. The patient was later transitioned to long-acting insulin off of IV insulin drip. DKA resolved. However, on the evening of 12/22/18 patient developed seizure activity. No report of any seizure disorder history. The patient was treated with Ativan and Keppra IV and transferred to the ICU for closer monitoring. Seizures have resolved and patient is much more alert and interactive. Hospitalist Physical - Constitutional Vitals: Temp Pulse Resp BP Pulse Ox 98.7 F 92 H 13 169/65 99 12/25/18 08:00 12/25/18 05:31 12/25/18 05:31 12/25/18 05:31 12/25/18 05:31 General appearance: Present: no acute distress - EENT Eyes: Present: PERRL, EOM intact ENT: hearing intact, clear oral mucosa, dentition normal - Neck Neck: Present: supple, normal ROM - Respiratory Respiratory effort: normal Respiratory: bilateral: CTA - Cardiovascular Rhythm: regular Heart Sounds: Present: S1 & S2. Absent: gallop, rub - Extremities Extremities: no ischemia, No edema, Full ROM - Abdominal General gastrointestinal: soft, non-tender, non-distended, normal bowel sounds - Integumentary Integumentary: Present: clear, warm, dry - Neurologic Neurologic: CNII-XII intact, moves all extremities Results - Labs CBC & Chem 7: 12/25/18 05:21 12/25/18 05:21 Labs: Laboratory Last Values WBC 11.7 K/mm3 (4.5-11.0) H 12/25/18 05:21 RBC 3.94 M/mm3 (3.65-5.03) 12/25/18 05:21 Hgb 11.3 gm/dl (10.1-14.3) 12/25/18 05:21 Hct 33.4 % (30.3-42.9) 12/25/18 05:21 MCV 85 fl (79-97) 12/25/18 05:21 MCH 29 pg (28-32) 12/25/18 05:21 MCHC 34 % (30-34) 12/25/18 05:21 RDW 14.3 % (13.2-15.2) 12/25/18 05:21 Plt Count 223 K/mm3 (140-440) 12/25/18 05:21 Lymph % (Auto) 12.2 % (13.4-35.0) L 12/25/18 05:21 [place] % (Auto) 8.3 % (0.0-7.3) H 12/25/18 05:21 Eos % (Auto) 2.3 % (0.0-4.3) 12/25/18 05:21 Baso % (Auto) 0.4 % (0.0-1.8) 12/25/18 05:21 Lymph # 1.4 K/mm3 (1.2-5.4) 12/25/18 05:21 [place] # 1.0 K/mm3 (0.0-0.8) H 12/25/18 05:21 Eos # 0.3 K/mm3 (0.0-0.4) 12/25/18 05:21 Baso # 0.0 K/mm3 (0.0-0.1) 12/25/18 05:21 Add Manual Diff Complete 12/23/18 04:21 Total Counted 100 12/23/18 04:21 Seg Neutrophils % 76.8 % (40.0-70.0) H 12/25/18 05:21 Seg Neuts % (Manual) 83.0 % (40.0-70.0) H 12/23/18 04:21 Band Neutrophils % 0 % 12/23/18 04:21 Lymphocytes % (Manual) 12.0 % (13.4-35.0) L 12/23/18 04:21 Reactive Lymphs % (Man) 0 % 12/23/18 04:21 Monocytes % (Manual) 2.0 % (0.0-7.3) 12/23/18 04:21 Eosinophils % (Manual) 0 % (0.0-4.3) 12/23/18 04:21 Basophils % (Manual) 1.0 % (0.0-1.8) 12/23/18 04:21 Metamyelocytes % 2.0 % 12/23/18 04:21 Myelocytes % 0 % 12/23/18 04:21 Promyelocytes % 0 % 12/23/18 04:21 Blast Cells % 0 % 12/23/18 04:21 Nucleated RBC % Not Reportable 12/23/18 04:21 Seg Neutrophils # 8.9 K/mm3 (1.8-7.7) H 12/25/18 05:21 Seg Neutrophils # Man 13.0 K/mm3 (1.8-7.7) H 12/23/18 04:21 Band Neutrophils # 0.0 K/mm3 12/23/18 04:21 Lymphocytes # (Manual) 1.9 K/mm3 (1.2-5.4) 12/23/18 04:21 Abs React Lymphs (Man) 0.0 K/mm3 12/23/18 04:21 Monocytes # (Manual) 0.3 K/mm3 (0.0-0.8) 12/23/18 04:21 Eosinophils # (Manual) 0.0 K/mm3 (0.0-0.4) 12/23/18 04:21 Basophils # (Manual) 0.2 K/mm3 (0.0-0.1) H 12/23/18 04:21 Metamyelocytes # 0.3 K/mm3 12/23/18 04:21 Myelocytes # 0.0 K/mm3 12/23/18 04:21 Promyelocytes # 0.0 K/mm3 12/23/18 04:21 Blast Cells # 0.0 K/mm3 12/23/18 04:21 WBC Morphology Not Reportable 12/23/18 04:21 Hypersegmented Neuts Not Reportable 12/23/18 04:21 Hyposegmented Neuts Not Reportable 12/23/18 04:21 Hypogranular Neuts Not Reportable 12/23/18 04:21 Smudge Cells Not Reportable 12/23/18 04:21 Toxic Granulation Not Reportable 12/23/18 04:21 Toxic Vacuolation Not Reportable 12/23/18 04:21 Dohle Bodies Not Reportable 12/23/18 04:21 Pelger-Huet Anomaly Not Reportable 12/23/18 04:21 Saul Rods Not Reportable 12/23/18 04:21 Platelet Estimate Consistent w auto 12/23/18 04:21 Clumped Platelets Not Reportable 12/23/18 04:21 Plt Clumps, EDTA Not Reportable 12/23/18 04:21 Large Platelets Not Reportable 12/23/18 04:21 Giant Platelets Not Reportable 12/23/18 04:21 Platelet Satelliting Not Reportable 12/23/18 04:21 Plt Morphology Comment Not Reportable 12/23/18 04:21 RBC Morphology Normal 12/23/18 04:21 Dimorphic RBCs Not Reportable 12/23/18 04:21 Polychromasia Not Reportable 12/23/18 04:21 Hypochromasia Not Reportable 12/23/18 04:21 Poikilocytosis Not Reportable 12/23/18 04:21 Anisocytosis Not Reportable 12/23/18 04:21 Microcytosis Not Reportable 12/23/18 04:21 Macrocytosis Not Reportable 12/23/18 04:21 Spherocytes Not Reportable 12/23/18 04:21 Pappenheimer Bodies Not Reportable 12/23/18 04:21 Sickle Cells Not Reportable 12/23/18 04:21 Target Cells Not Reportable 12/23/18 04:21 Tear Drop Cells Not Reportable 12/23/18 04:21 Ovalocytes Not Reportable 12/23/18 04:21 Helmet Cells Not Reportable 12/23/18 04:21 [place] Bodies Not Reportable 12/23/18 04:21 [place] Rings Not Reportable 12/23/18 04:21 Evi Cells Not Reportable 12/23/18 04:21 Bite Cells Not Reportable 12/23/18 04:21 Crenated Cell Not Reportable 12/23/18 04:21 Elliptocytes Not Reportable 12/23/18 04:21 Acanthocytes (Spur) Not Reportable 12/23/18 04:21 Rouleaux Not Reportable 12/23/18 04:21 Hemoglobin C Crystals Not Reportable 12/23/18 04:21 Schistocytes Not Reportable 12/23/18 04:21 Malaria parasites Not Reportable 12/23/18 04:21 Sid Bodies Not Reportable 12/23/18 04:21 Hem Pathologist Commnt No 12/23/18 04:21 VBG pH 7.299 (7.320-7.420) L 12/21/18 09:24 Sodium 131 mmol/L (137-145) L 12/25/18 05:21 Potassium 2.4 mmol/L (3.6-5.0) L* 12/25/18 05:21 Chloride 96.5 mmol/L (98-107) L 12/25/18 05:21 Carbon Dioxide 21 mmol/L (22-30) L 12/25/18 05:21 Anion Gap 16 mmol/L 12/25/18 05:21 BUN 11 mg/dL (7-17) 12/25/18 05:21 Creatinine 0.9 mg/dL (0.7-1.2) 12/25/18 05:21 Estimated GFR > 60 ml/min 12/25/18 05:21 BUN/Creatinine Ratio 12 % 12/25/18 05:21 Glucose 496 mg/dL (65-100) H 12/25/18 05:21 POC Glucose 108 (70-105) H 12/25/18 07:49 Calcium 7.2 mg/dL (8.4-10.2) L 12/25/18 05:21 Phosphorus 2.20 mg/dL (2.5-4.5) L 12/21/18 13:33 Magnesium 1.50 mg/dL (1.7-2.3) L 12/21/18 13:33 Total Bilirubin 0.30 mg/dL (0.1-1.2) 12/22/18 04:55 AST 16 units/L (5-40) 12/22/18 04:55 ALT 8 units/L (7-56) 12/22/18 04:55 Alkaline Phosphatase 124 units/L (35-129) 12/22/18 04:55 Total Protein 6.9 g/dL (6.3-8.2) 12/22/18 04:55 Albumin 3.4 g/dL (3.9-5) L 12/22/18 04:55 Albumin/Globulin Ratio 1.0 % 12/22/18 04:55 Urine Color Yellow (Yellow) 12/21/18 Unknown Urine Turbidity Clear (Clear) 12/21/18 Unknown Urine pH 5.0 (5.0-7.0) 12/21/18 Unknown Ur Specific [place] 1.018 (1.003-1.030) 12/21/18 Unknown Urine Protein >500 mg/dL (Negative) 12/21/18 Unknown Urine Glucose (UA) >=500 mg/dL (Negative) 12/21/18 Unknown Urine Ketones Tr mg/dL (Negative) 12/21/18 Unknown Urine Blood Mod (Negative) 12/21/18 Unknown Urine Nitrite Neg (Negative) 12/21/18 Unknown Urine Bilirubin Neg (Negative) 12/21/18 Unknown Urine Urobilinogen < 2.0 mg/dL (<2.0) 12/21/18 Unknown Ur Leukocyte Esterase Neg (Negative) 12/21/18 Unknown Urine WBC (Auto) 1.0 /HPF (0.0-6.0) 12/21/18 Unknown Urine RBC (Auto) 1.0 /HPF (0.0-6.0) 12/21/18 Unknown Urine Mucus Few /HPF 12/21/18 09:11 Active Medications - Current Medications Current Medications: Generic Name Dose Route Start Last Admin Trade Name Freq PRN Reason Stop Dose Admin Acetaminophen 650 mg 12/21/18 12:16 12/22/18 15:50 Tylenol PO 650 mg Q4H PRN Administration Pain MILD(1-3)/Fever >100.5/BROWN Dextrose 50 ml 12/22/18 08:02 D50w (25gm) Syringe IV PRN PRN Hypoglycemia Heparin Sodium (Porcine) 5,000 unit 12/21/18 22:00 12/24/18 22:07 Heparin SUB-Q 5,000 unit Q12HR LORENA Administration Levetiracetam 1,000 mg/ 110 mls @ 400 mls/hr 12/23/18 05:00 12/25/18 06:18 Dextrose IV 400 mls/hr Q12H LORENA Administration Levofloxacin/Dextrose 750 mg in 150 mls @ 100 mls/hr 12/25/18 10:00 Levaquin 750mg/150ml IV 12/25/18 23:59 Q48HR LORENA Protocol Dextrose/Sodium Chloride 1,000 mls @ 75 mls/hr 12/23/18 17:00 12/24/18 22:10 D5/0.45ns IV 75 mls/hr DIRECT LORENA Administration Insulin Human Isoph/Insulin Regular 20 unit 12/22/18 09:00 12/24/18 17:38 Humulin 70/30 SUB-Q 20 unit BIDDIAB LORENA Administration Insulin Human Regular 0 units 12/22/18 09:00 12/25/18 06:17 Humulin R SUB-Q Not Given ACHS LORENA Protocol Lorazepam 1 mg 12/23/18 05:52 Ativan IV Q4H PRN Seizures Metoprolol Tartrate 25 mg 12/22/18 10:00 12/24/18 10:01 Lopressor PO 25 mg DAILY LORENA Administration Ranolazine 500 mg 12/21/18 22:00 12/24/18 22:08 Ranexa Er PO Not Given BID LORENA Sodium Chloride 10 ml 12/21/18 22:00 12/24/18 22:08 Sodium Chloride Flush Syringe 10 Ml IV 10 ml BID LORENA Administration Sodium Chloride 10 ml 12/21/18 12:13 Sodium Chloride Flush Syringe 10 Ml IV PRN PRN LINE FLUSH Nutrition/Malnutrition Assess - Dietary Evaluation Nutrition/Malnutrition Findings: Nutrition Notes Start: 12/22/18 09:37 Freq: Status: Active Protocol: Document 12/24/18 10:01 MARISOL (Rec: 12/24/18 10:29 [place] [id number]) Co-Sign 12/24/18 10:01 LM Nutrition Notes Initial or Follow up Reassessment Current Diagnosis Acute Kidney Injury,Diabetes, Hypertension Other Pertinent Diagnosis Metabolic encephalopathy, dementia, charcot disease Current Diet NPO Labs/Tests POC Glu 171 As of 12/23/18: Na 136 BUN 19 CR 1.3 Glu 280 Pertinent Medications Reviewed Height 5 ft 4 in Weight 87.7 kg [place] Body Weight (kg) 54.54 BMI 33.2 Weight change and time frame wt change noted Weight Status Obese Subjective/Other Information Pt was highly disoriented at time of visit. Pt remains NPO due to failed swallow test. Burn Absent Trauma Absent Minimum of two criteria No #1 Nutrition Diagnosis Inadequate oral intake Diagnosis Progress(for reassessment Continues documentation) Is patient on ventilator? No Is Patient Ambulatory and/or Out of Bed No REE-([place]-confined to bed) [phone] Calculation Used for Recommendations [facility] Additional Notes Protein needs: 82g-98g/kg (1g- 1.2g/kg) Fluid needs: 1kcal/kg Nutrition Intervention Change Diet Order: Recommend BOILER OUT eval Goal #1 Meet at leat 75% of energy and protein needs Goal #2 Diet advancement Anticipated Discharge Needs: Unable to determine at this time Follow-Up By: 12/27/18 Additional Comments F/U for diet advancement and PO intakes
[2018-12-25] MEDS ORDERED: POTASSIUM CHLORIDE ER 20 MEQ TAB PO NR ×2 (10:04→14:00)
[2018-12-25] MEDS ORDERED: POTASSIUM CHLORIDE 10 MEQ 10 MEQ/100 ML BAG IV ONE ×2 (10:05→14:05)
[2018-12-25] MEDS: METOPROLOL TARTRATE 25 MG TAB PO SCH (10:59)
[2018-12-25] MEDS: RANOLAZINE ER 500 MG TAB 12HR PO SCH ×2 (11:00→22:50)
[2018-12-25] MEDS: INSULIN NPH/REGULAR 70/30 INJ SUB-Q SCH ×2 (11:00→17:53)
[2018-12-25] MEDS: HEPARIN 5,000 UNIT/1 ML VIAL SUB-Q SCH ×2 (11:01→22:50)
[2018-12-25] MEDS: D5W/0.45% NACL 1,000 ML IV SCH (14:41)
[2018-12-25 19:51] LABS: Calcium 8.2 mg/dL (8.4-10.2)
[2018-12-26] MEDS: hydrALAZINE 20 MG/1 ML INJ IV PRN ×2 (03:24→16:13)
[2018-12-26] MEDS: levETIRAcetam 1,000 MG in DEXTROSE 5% IN WATER 100 ML IV SCH (04:40)
[2018-12-26] MEDS: D5W/0.45% NACL 1,000 ML IV SCH (04:40)
[2018-12-26] MEDS: INSULIN NPH/REGULAR 70/30 INJ SUB-Q SCH ×2 (08:21→16:13)
[2018-12-26] MEDS: INSULIN REGULAR, HUMAN 100 UNITS/1 ML SUB-Q SCH ×4 (08:22→21:25)
--- NOTE | 2018-12-26 09:56 | Progress Note ---
Assessment and Plan Assessment and plan: Hypokalemia. Replete potassium. Check magnesium. Seizure disorder. ? New onset. Check EEG, MRI with no acute findings.. Neurology following. Continue Keppra IV twice a day and Ativan when necessary Toxic metabolic encephalopathy. Patient remains confused. DKA. Resolved. Patient will be transitioned to twice a day long-acting insulin and transferred to the floor0. Acute kidney injury. Etiology secondary to vasomotor nephropathy. Continue IV fluid hydration. Follow-up BMP. Accelerated hypertension. Continue antihypertensive medications. History Interval history: 73 YO Female with DM, HTN, Debility, Dementia, Charcot Disease presents to ED for evaluation. 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 Pt has had increased bedbound status, and currently requires time recorder assistance with activities of daily living. EMS notified, and upon arrival the patient was found to be in distress and transported to [facility]. Pt seen and evaluated in ED and found to have DKA with blood glucose above 900, as well as Hypertensive Emergency with BP of 243/111, as well as CHANDRIKA, and Metabolic Encephalopathy. Pt Admitted to ICU and initiated on DKA protocol, as well as IV Hydralazine for blood pressure control. The patient was later transitioned to long-acting insulin off of IV insulin drip. DKA resolved. However, on the evening of 12/22/18 patient developed seizure activity. No report of any seizure disorder history. The patient was treated with Ativan and Keppra IV and transferred to the ICU for closer monitoring. Seizures have resolved and patient is much more alert and interactive. However, patient is very confused. Hospitalist Physical - Constitutional Vitals: Temp Pulse Resp BP Pulse Ox 97.7 F 113 H 18 155/74 95 12/26/18 08:26 12/26/18 08:26 12/26/18 08:26 12/26/18 08:26 12/26/18 08:26 General appearance: Present: no acute distress - EENT Eyes: Present: PERRL, EOM intact ENT: hearing intact, clear oral mucosa, dentition normal - Neck Neck: Present: supple, normal ROM - Respiratory Respiratory effort: normal Respiratory: bilateral: CTA - Cardiovascular Rhythm: regular Heart Sounds: Present: S1 & S2. Absent: gallop, rub - Extremities Extremities: no ischemia, No edema, Full ROM - Abdominal General gastrointestinal: soft, non-tender, non-distended, normal bowel sounds - Integumentary Integumentary: Present: clear, warm, dry - Neurologic Neurologic: CNII-XII intact, moves all extremities Results - Labs CBC & Chem 7: 12/25/18 05:21 12/25/18 18:56 Labs: Laboratory Last Values WBC 11.7 K/mm3 (4.5-11.0) H 12/25/18 05:21 RBC 3.94 M/mm3 (3.65-5.03) 12/25/18 05:21 Hgb 11.3 gm/dl (10.1-14.3) 12/25/18 05:21 Hct 33.4 % (30.3-42.9) 12/25/18 05:21 MCV 85 fl (79-97) 12/25/18 05:21 MCH 29 pg (28-32) 12/25/18 05:21 MCHC 34 % (30-34) 12/25/18 05:21 RDW 14.3 % (13.2-15.2) 12/25/18 05:21 Plt Count 223 K/mm3 (140-440) 12/25/18 05:21 Lymph % (Auto) 12.2 % (13.4-35.0) L 12/25/18 05:21 [place] % (Auto) 8.3 % (0.0-7.3) H 12/25/18 05:21 Eos % (Auto) 2.3 % (0.0-4.3) 12/25/18 05:21 Baso % (Auto) 0.4 % (0.0-1.8) 12/25/18 05:21 Lymph # 1.4 K/mm3 (1.2-5.4) 12/25/18 05:21 [place] # 1.0 K/mm3 (0.0-0.8) H 12/25/18 05:21 Eos # 0.3 K/mm3 (0.0-0.4) 12/25/18 05:21 Baso # 0.0 K/mm3 (0.0-0.1) 12/25/18 05:21 Add Manual Diff Complete 12/23/18 04:21 Total Counted 100 12/23/18 04:21 Seg Neutrophils % 76.8 % (40.0-70.0) H 12/25/18 05:21 Seg Neuts % (Manual) 83.0 % (40.0-70.0) H 12/23/18 04:21 Band Neutrophils % 0 % 12/23/18 04:21 Lymphocytes % (Manual) 12.0 % (13.4-35.0) L 12/23/18 04:21 Reactive Lymphs % (Man) 0 % 12/23/18 04:21 Monocytes % (Manual) 2.0 % (0.0-7.3) 12/23/18 04:21 Eosinophils % (Manual) 0 % (0.0-4.3) 12/23/18 04:21 Basophils % (Manual) 1.0 % (0.0-1.8) 12/23/18 04:21 Metamyelocytes % 2.0 % 12/23/18 04:21 Myelocytes % 0 % 12/23/18 04:21 Promyelocytes % 0 % 12/23/18 04:21 Blast Cells % 0 % 12/23/18 04:21 Nucleated RBC % Not Reportable 12/23/18 04:21 Seg Neutrophils # 8.9 K/mm3 (1.8-7.7) H 12/25/18 05:21 Seg Neutrophils # Man 13.0 K/mm3 (1.8-7.7) H 12/23/18 04:21 Band Neutrophils # 0.0 K/mm3 12/23/18 04:21 Lymphocytes # (Manual) 1.9 K/mm3 (1.2-5.4) 12/23/18 04:21 Abs React Lymphs (Man) 0.0 K/mm3 12/23/18 04:21 Monocytes # (Manual) 0.3 K/mm3 (0.0-0.8) 12/23/18 04:21 Eosinophils # (Manual) 0.0 K/mm3 (0.0-0.4) 12/23/18 04:21 Basophils # (Manual) 0.2 K/mm3 (0.0-0.1) H 12/23/18 04:21 Metamyelocytes # 0.3 K/mm3 12/23/18 04:21 Myelocytes # 0.0 K/mm3 12/23/18 04:21 Promyelocytes # 0.0 K/mm3 12/23/18 04:21 Blast Cells # 0.0 K/mm3 12/23/18 04:21 WBC Morphology Not Reportable 12/23/18 04:21 Hypersegmented Neuts Not Reportable 12/23/18 04:21 Hyposegmented Neuts Not Reportable 12/23/18 04:21 Hypogranular Neuts Not Reportable 12/23/18 04:21 Smudge Cells Not Reportable 12/23/18 04:21 Toxic Granulation Not Reportable 12/23/18 04:21 Toxic Vacuolation Not Reportable 12/23/18 04:21 Dohle Bodies Not Reportable 12/23/18 04:21 Pelger-Huet Anomaly Not Reportable 12/23/18 04:21 Saul Rods Not Reportable 12/23/18 04:21 Platelet Estimate Consistent w auto 12/23/18 04:21 Clumped Platelets Not Reportable 12/23/18 04:21 Plt Clumps, EDTA Not Reportable 12/23/18 04:21 Large Platelets Not Reportable 12/23/18 04:21 Giant Platelets Not Reportable 12/23/18 04:21 Platelet Satelliting Not Reportable 12/23/18 04:21 Plt Morphology Comment Not Reportable 12/23/18 04:21 RBC Morphology Normal 12/23/18 04:21 Dimorphic RBCs Not Reportable 12/23/18 04:21 Polychromasia Not Reportable 12/23/18 04:21 Hypochromasia Not Reportable 12/23/18 04:21 Poikilocytosis Not Reportable 12/23/18 04:21 Anisocytosis Not Reportable 12/23/18 04:21 Microcytosis Not Reportable 12/23/18 04:21 Macrocytosis Not Reportable 12/23/18 04:21 Spherocytes Not Reportable 12/23/18 04:21 Pappenheimer Bodies Not Reportable 12/23/18 04:21 Sickle Cells Not Reportable 12/23/18 04:21 Target Cells Not Reportable 12/23/18 04:21 Tear Drop Cells Not Reportable 12/23/18 04:21 Ovalocytes Not Reportable 12/23/18 04:21 Helmet Cells Not Reportable 12/23/18 04:21 [place] Bodies Not Reportable 12/23/18 04:21 [place] Rings Not Reportable 12/23/18 04:21 Evi Cells Not Reportable 12/23/18 04:21 Bite Cells Not Reportable 12/23/18 04:21 Crenated Cell Not Reportable 12/23/18 04:21 Elliptocytes Not Reportable 12/23/18 04:21 Acanthocytes (Spur) Not Reportable 12/23/18 04:21 Rouleaux Not Reportable 12/23/18 04:21 Hemoglobin C Crystals Not Reportable 12/23/18 04:21 Schistocytes Not Reportable 12/23/18 04:21 Malaria parasites Not Reportable 12/23/18 04:21 Sid Bodies Not Reportable 12/23/18 04:21 Hem Pathologist Commnt No 12/23/18 04:21 VBG pH 7.299 (7.320-7.420) L 12/21/18 09:24 Sodium 136 mmol/L (137-145) L 12/25/18 18:56 Potassium 4.2 mmol/L (3.6-5.0) D 12/25/18 18:56 Chloride 98.7 mmol/L (98-107) 12/25/18 18:56 Carbon Dioxide 22 mmol/L (22-30) 12/25/18 18:56 Anion Gap 20 mmol/L 12/25/18 18:56 BUN 11 mg/dL (7-17) 12/25/18 18:56 Creatinine 1.0 mg/dL (0.7-1.2) 12/25/18 18:56 Estimated GFR 54 ml/min 12/25/18 18:56 BUN/Creatinine Ratio 11 % 12/25/18 18:56 Glucose 109 mg/dL (65-100) H 12/25/18 18:56 POC Glucose 391 (70-105) H 12/26/18 07:45 Calcium 8.2 mg/dL (8.4-10.2) L 12/25/18 18:56 Phosphorus 2.20 mg/dL (2.5-4.5) L 12/21/18 13:33 Magnesium 1.50 mg/dL (1.7-2.3) L 12/21/18 13:33 Total Bilirubin 0.30 mg/dL (0.1-1.2) 12/22/18 04:55 AST 16 units/L (5-40) 12/22/18 04:55 ALT 8 units/L (7-56) 12/22/18 04:55 Alkaline Phosphatase 124 units/L (35-129) 12/22/18 04:55 Total Protein 6.9 g/dL (6.3-8.2) 12/22/18 04:55 Albumin 3.4 g/dL (3.9-5) L 12/22/18 04:55 Albumin/Globulin Ratio 1.0 % 12/22/18 04:55 Urine Color Yellow (Yellow) 12/21/18 Unknown Urine Turbidity Clear (Clear) 12/21/18 Unknown Urine pH 5.0 (5.0-7.0) 12/21/18 Unknown Ur Specific [place] 1.018 (1.003-1.030) 12/21/18 Unknown Urine Protein >500 mg/dL (Negative) 12/21/18 Unknown Urine Glucose (UA) >=500 mg/dL (Negative) 12/21/18 Unknown Urine Ketones Tr mg/dL (Negative) 12/21/18 Unknown Urine Blood Mod (Negative) 12/21/18 Unknown Urine Nitrite Neg (Negative) 12/21/18 Unknown Urine Bilirubin Neg (Negative) 12/21/18 Unknown Urine Urobilinogen < 2.0 mg/dL (<2.0) 12/21/18 Unknown Ur Leukocyte Esterase Neg (Negative) 12/21/18 Unknown Urine WBC (Auto) 1.0 /HPF (0.0-6.0) 12/21/18 Unknown Urine RBC (Auto) 1.0 /HPF (0.0-6.0) 12/21/18 Unknown Urine Mucus Few /HPF 12/21/18 09:11 Active Medications - Current Medications Current Medications: Generic Name Dose Route Start Last Admin Trade Name Freq PRN Reason Stop Dose Admin Acetaminophen 650 mg 12/21/18 12:16 12/22/18 15:50 Tylenol PO 650 mg Q4H PRN Administration Pain MILD(1-3)/Fever >100.5/BROWN Dextrose 50 ml 12/22/18 08:02 D50w (25gm) Syringe IV PRN PRN Hypoglycemia Heparin Sodium (Porcine) 5,000 unit 12/21/18 22:00 12/25/18 22:50 Heparin SUB-Q 5,000 unit Q12HR LORENA Administration Hydralazine HCl 5 mg 12/26/18 00:36 12/26/18 03:24 Apresoline IV 5 mg Q6H PRN Administration Hypertension Levetiracetam 1,000 mg/ 110 mls @ 400 mls/hr 12/23/18 05:00 12/26/18 04:40 Dextrose IV 400 mls/hr Q12H LORENA Administration Dextrose/Sodium Chloride 1,000 mls @ 75 mls/hr 12/23/18 17:00 12/26/18 04:40 D5/0.45ns IV 75 mls/hr DIRECT LORENA Administration Insulin Human Isoph/Insulin Regular 20 unit 12/22/18 09:00 12/26/18 08:21 Humulin 70/30 SUB-Q 20 unit BIDDIAB LORENA Administration Insulin Human Regular 0 units 12/22/18 09:00 12/26/18 08:22 Humulin R SUB-Q 8 units ACHS LORENA Administration Protocol Lorazepam 1 mg 12/23/18 05:52 Ativan IV Q4H PRN Seizures Metoprolol Tartrate 25 mg 12/22/18 10:00 12/25/18 10:59 Lopressor PO 25 mg DAILY LORENA Administration Ranolazine 500 mg 12/21/18 22:00 12/25/18 22:50 Ranexa Er PO 500 mg BID LORENA Administration Sodium Chloride 10 ml 12/21/18 22:00 12/25/18 22:50 Sodium Chloride Flush Syringe 10 Ml IV 10 ml BID LORENA Administration Sodium Chloride 10 ml 12/21/18 12:13 Sodium Chloride Flush Syringe 10 Ml IV PRN PRN LINE FLUSH Nutrition/Malnutrition Assess - Dietary Evaluation Nutrition/Malnutrition Findings: Nutrition Notes Start: 12/22/18 09:37 Freq: Status: Active Protocol: Document 12/24/18 10:01 MARISOL (Rec: 12/24/18 10:29 [place] [id number]) Co-Sign 12/24/18 10:01 LM Nutrition Notes Initial or Follow up Reassessment Current Diagnosis Acute Kidney Injury,Diabetes, Hypertension Other Pertinent Diagnosis Metabolic encephalopathy, dementia, charcot disease Current Diet NPO Labs/Tests POC Glu 171 As of 10/3/19: Na 136 BUN 19 CR 1.3 Glu 280 Pertinent Medications Reviewed Height 5 ft 4 in Weight 87.7 kg [place] Body Weight (kg) 54.54 BMI 33.2 Weight change and time frame wt change noted Weight Status Obese Subjective/Other Information Pt was highly disoriented at time of visit. Pt remains NPO due to failed swallow test. Burn Absent Trauma Absent Minimum of two criteria No #1 Nutrition Diagnosis Inadequate oral intake Diagnosis Progress(for reassessment Continues documentation) Is patient on ventilator? 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
[2018-12-26] MEDS: RANOLAZINE ER 500 MG TAB 12HR PO SCH ×2 (09:57→21:26)
[2018-12-26] MEDS: METOPROLOL TARTRATE 25 MG TAB PO SCH (09:57)
[2018-12-26] MEDS: HEPARIN 5,000 UNIT/1 ML VIAL SUB-Q SCH ×2 (09:58→21:27)
[2018-12-26] MEDS ORDERED: ALTEPLASE 2 MG INJ IV ONE (15:33)
[2018-12-26] MEDS: levETIRAcetam 500 MG TAB PO SCH (21:26)
[2018-12-27 07:25] LABS: Basophils % (Auto) 0.4 % (0.0-1.8); Eosinophils # (Auto) 0.4 K/mm3 (0.0-0.4); Hematocrit 30.5 % (30.3-42.9); Hemoglobin 10.3 gm/dl (10.1-14.3); Lymphocytes # (Auto) 1.7 K/mm3 (1.2-5.4); Lymphocytes % (Auto) 14.6 % (13.4-35.0); Mean Corpuscular HGB Conc 34 % (30-34); Mean Corpuscular Volume 85 fl (79-97); Monocytes % (Auto) 8.9 % (0.0-7.3); Platelet Count 217 K/mm3 (140-440); Red Blood Count 3.58 M/mm3 (3.65-5.03); Red Cell Distribution Width 14.6 % (13.2-15.2)
[2018-12-27 07:44] LABS: Calcium 8.2 mg/dL (8.4-10.2)
[2018-12-27] MEDS: levETIRAcetam 500 MG TAB PO SCH ×2 (10:11→22:51)
[2018-12-27] MEDS: RANOLAZINE ER 500 MG TAB 12HR PO SCH ×2 (10:11→22:51)
[2018-12-27] MEDS: HEPARIN 5,000 UNIT/1 ML VIAL SUB-Q SCH ×2 (10:12→22:51)
[2018-12-27] MEDS: METOPROLOL TARTRATE 25 MG TAB PO SCH (10:12)
[2018-12-27] MEDS: INSULIN NPH/REGULAR 70/30 INJ SUB-Q SCH ×2 (10:12→21:42)
[2018-12-27] MEDS: INSULIN REGULAR, HUMAN 100 UNITS/1 ML SUB-Q SCH ×4 (10:13→22:51)
--- NOTE | 2018-12-27 11:02 | Progress Note ---
Assessment and Plan Assessment and plan: Hypokalemia. Replete potassium. Check magnesium. Seizure disorder. ? New onset. Check EEG, MRI with no acute findings. Neurology following. Continue Keppra IV twice a day and Ativan when necessary Toxic metabolic encephalopathy. Patient remains confused but improved. DKA. Resolved. Acute kidney injury. Etiology secondary to vasomotor nephropathy. Resolved. Follow-up BMP. Accelerated hypertension. Continue antihypertensive medications. History Interval history: 73 YO Female with DM, HTN, Debility, Dementia, Charcot Disease presents to ED for evaluation. 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 Pt has had increased bedbound status, and currently requires aircraft time clerk assistance with activities of daily living. EMS notified, and upon arrival the patient was found to be in distress and transported to [facility]. Pt seen and evaluated in ED and found to have DKA with blood glucose above 900, as well as Hypertensive Emergency with BP of 243/111, as well as CHANDRIKA, and Metabolic Encephalopathy. Pt Admitted to ICU and initiated on DKA protocol, as well as IV Hydralazine for blood pressure control. The patient was later transitioned to long-acting insulin off of IV insulin drip. DKA resolved. However, on the evening of 12/22/18 patient developed seizure activity. No report of any seizure disorder history. The patient was treated with Ativan and Keppra IV and transferred to the ICU for closer monitoring. Seizures have resolved and patient is much more alert and interactive. However, patient with intermittent confusion. Hospitalist Physical - Constitutional Vitals: Temp Pulse Resp BP Pulse Ox 98.2 F 90 18 149/60 97 12/27/18 07:20 12/27/18 10:12 12/27/18 10:00 12/27/18 10:12 12/27/18 07:20 General appearance: Present: no acute distress - EENT Eyes: Present: PERRL, EOM intact ENT: hearing intact, clear oral mucosa, dentition normal - Neck Neck: Present: supple, normal ROM - Respiratory Respiratory effort: normal Respiratory: bilateral: CTA - Cardiovascular Rhythm: regular Heart Sounds: Present: S1 & S2. Absent: gallop, rub - Extremities Extremities: no ischemia, No edema, Full ROM - Abdominal General gastrointestinal: soft, non-tender, non-distended, normal bowel sounds - Integumentary Integumentary: Present: clear, warm, dry - Neurologic Neurologic: CNII-XII intact, moves all extremities Results - Labs CBC & Chem 7: 12/27/18 07:06 12/27/18 07:06 Labs: Laboratory Last Values WBC 11.7 K/mm3 (4.5-11.0) H 12/27/18 07:06 RBC 3.58 M/mm3 (3.65-5.03) L 12/27/18 07:06 Hgb 10.3 gm/dl (10.1-14.3) 12/27/18 07:06 Hct 30.5 % (30.3-42.9) 12/27/18 07:06 MCV 85 fl (79-97) 12/27/18 07:06 MCH 29 pg (28-32) 12/27/18 07:06 MCHC 34 % (30-34) 12/27/18 07:06 RDW 14.6 % (13.2-15.2) 12/27/18 07:06 Plt Count 217 K/mm3 (140-440) 12/27/18 07:06 Lymph % (Auto) 14.6 % (13.4-35.0) 12/27/18 07:06 [place] % (Auto) 8.9 % (0.0-7.3) H 12/27/18 07:06 Eos % (Auto) 3.0 % (0.0-4.3) 12/27/18 07:06 Baso % (Auto) 0.4 % (0.0-1.8) 12/27/18 07:06 Lymph # 1.7 K/mm3 (1.2-5.4) 12/27/18 07:06 [place] # 1.0 K/mm3 (0.0-0.8) H 12/27/18 07:06 Eos # 0.4 K/mm3 (0.0-0.4) 12/27/18 07:06 Baso # 0.0 K/mm3 (0.0-0.1) 12/27/18 07:06 Add Manual Diff Complete 12/23/18 04:21 Total Counted 100 12/23/18 04:21 Seg Neutrophils % 73.1 % (40.0-70.0) H 12/27/18 07:06 Seg Neuts % (Manual) 83.0 % (40.0-70.0) H 12/23/18 04:21 Band Neutrophils % 0 % 12/23/18 04:21 Lymphocytes % (Manual) 12.0 % (13.4-35.0) L 12/23/18 04:21 Reactive Lymphs % (Man) 0 % 12/23/18 04:21 Monocytes % (Manual) 2.0 % (0.0-7.3) 12/23/18 04:21 Eosinophils % (Manual) 0 % (0.0-4.3) 12/23/18 04:21 Basophils % (Manual) 1.0 % (0.0-1.8) 12/23/18 04:21 Metamyelocytes % 2.0 % 12/23/18 04:21 Myelocytes % 0 % 12/23/18 04:21 Promyelocytes % 0 % 12/23/18 04:21 Blast Cells % 0 % 12/23/18 04:21 Nucleated RBC % Not Reportable 12/23/18 04:21 Seg Neutrophils # 8.6 K/mm3 (1.8-7.7) H 12/27/18 07:06 Seg Neutrophils # Man 13.0 K/mm3 (1.8-7.7) H 12/23/18 04:21 Band Neutrophils # 0.0 K/mm3 12/23/18 04:21 Lymphocytes # (Manual) 1.9 K/mm3 (1.2-5.4) 12/23/18 04:21 Abs React Lymphs (Man) 0.0 K/mm3 12/23/18 04:21 Monocytes # (Manual) 0.3 K/mm3 (0.0-0.8) 12/23/18 04:21 Eosinophils # (Manual) 0.0 K/mm3 (0.0-0.4) 12/23/18 04:21 Basophils # (Manual) 0.2 K/mm3 (0.0-0.1) H 12/23/18 04:21 Metamyelocytes # 0.3 K/mm3 12/23/18 04:21 Myelocytes # 0.0 K/mm3 12/23/18 04:21 Promyelocytes # 0.0 K/mm3 12/23/18 04:21 Blast Cells # 0.0 K/mm3 12/23/18 04:21 WBC Morphology Not Reportable 12/23/18 04:21 Hypersegmented Neuts Not Reportable 12/23/18 04:21 Hyposegmented Neuts Not Reportable 12/23/18 04:21 Hypogranular Neuts Not Reportable 12/23/18 04:21 Smudge Cells Not Reportable 12/23/18 04:21 Toxic Granulation Not Reportable 12/23/18 04:21 Toxic Vacuolation Not Reportable 12/23/18 04:21 Dohle Bodies Not Reportable 12/23/18 04:21 Pelger-Huet Anomaly Not Reportable 12/23/18 04:21 Saul Rods Not Reportable 12/23/18 04:21 Platelet Estimate Consistent w auto 12/23/18 04:21 Clumped Platelets Not Reportable 12/23/18 04:21 Plt Clumps, EDTA Not Reportable 12/23/18 04:21 Large Platelets Not Reportable 12/23/18 04:21 Giant Platelets Not Reportable 12/23/18 04:21 Platelet Satelliting Not Reportable 12/23/18 04:21 Plt Morphology Comment Not Reportable 12/23/18 04:21 RBC Morphology Normal 12/23/18 04:21 Dimorphic RBCs Not Reportable 12/23/18 04:21 Polychromasia Not Reportable 12/23/18 04:21 Hypochromasia Not Reportable 12/23/18 04:21 Poikilocytosis Not Reportable 12/23/18 04:21 Anisocytosis Not Reportable 12/23/18 04:21 Microcytosis Not Reportable 12/23/18 04:21 Macrocytosis Not Reportable 12/23/18 04:21 Spherocytes Not Reportable 12/23/18 04:21 Pappenheimer Bodies Not Reportable 12/23/18 04:21 Sickle Cells Not Reportable 12/23/18 04:21 Target Cells Not Reportable 12/23/18 04:21 Tear Drop Cells Not Reportable 12/23/18 04:21 Ovalocytes Not Reportable 12/23/18 04:21 Helmet Cells Not Reportable 12/23/18 04:21 [place] Bodies Not Reportable 12/23/18 04:21 [place]ad[place] Rings Not Reportable 12/23/18 04:21 Evi Cells Not Reportable 12/23/18 04:21 Bite Cells Not Reportable 12/23/18 04:21 Crenated Cell Not Reportable 12/23/18 04:21 Elliptocytes Not Reportable 12/23/18 04:21 Acanthocytes (Spur) Not Reportable 12/23/18 04:21 Rouleaux Not Reportable 12/23/18 04:21 Hemoglobin C Crystals Not Reportable 12/23/18 04:21 Schistocytes Not Reportable 12/23/18 04:21 Malaria parasites Not Reportable 12/23/18 04:21 Sid Bodies Not Reportable 12/23/18 04:21 Hem Pathologist Commnt No 12/23/18 04:21 VBG pH 7.299 (7.320-7.420) L 12/21/18 09:24 Sodium 134 mmol/L (137-145) L 12/27/18 07:06 Potassium 3.8 mmol/L (3.6-5.0) 12/27/18 07:06 Chloride 100.2 mmol/L (98-107) 12/27/18 07:06 Carbon Dioxide 25 mmol/L (22-30) 12/27/18 07:06 Anion Gap 13 mmol/L 12/27/18 07:06 BUN 19 mg/dL (7-17) H 12/27/18 07:06 Creatinine 1.1 mg/dL (0.7-1.2) 12/27/18 07:06 Estimated GFR 49 ml/min 12/27/18 07:06 BUN/Creatinine Ratio 17 % 12/27/18 07:06 Glucose 275 mg/dL (65-100) H 12/27/18 07:06 POC Glucose 280 (70-105) H 12/27/18 07:29 Calcium 8.2 mg/dL (8.4-10.2) L 12/27/18 07:06 Phosphorus 2.20 mg/dL (2.5-4.5) L 12/21/18 13:33 Magnesium 1.50 mg/dL (1.7-2.3) L 12/21/18 13:33 Total Bilirubin 0.30 mg/dL (0.1-1.2) 12/22/18 04:55 AST 16 units/L (5-40) 12/22/18 04:55 ALT 8 units/L (7-56) 12/22/18 04:55 Alkaline Phosphatase 124 units/L (35-129) 12/22/18 04:55 Total Protein 6.9 g/dL (6.3-8.2) 12/22/18 04:55 Albumin 3.4 g/dL (3.9-5) L 12/22/18 04:55 Albumin/Globulin Ratio 1.0 % 12/22/18 04:55 Urine Color Yellow (Yellow) 12/21/18 Unknown Urine Turbidity Clear (Clear) 12/21/18 Unknown Urine pH 5.0 (5.0-7.0) 12/21/18 Unknown Ur Specific [place] 1.018 (1.003-1.030) 12/21/18 Unknown Urine Protein >500 mg/dL (Negative) 12/21/18 Unknown Urine Glucose (UA) >=500 mg/dL (Negative) 12/21/18 Unknown Urine Ketones Tr mg/dL (Negative) 12/21/18 Unknown Urine Blood Mod (Negative) 12/21/18 Unknown Urine Nitrite Neg (Negative) 12/21/18 Unknown Urine Bilirubin Neg (Negative) 12/21/18 Unknown Urine Urobilinogen < 2.0 mg/dL (<2.0) 12/21/18 Unknown Ur Leukocyte Esterase Neg (Negative) 12/21/18 Unknown Urine WBC (Auto) 1.0 /HPF (0.0-6.0) 12/21/18 Unknown Urine RBC (Auto) 1.0 /HPF (0.0-6.0) 12/21/18 Unknown Urine Mucus Few /HPF 12/21/18 09:11 Active Medications - Current Medications Current Medications: Generic Name Dose Route Start Last Admin Trade Name Freq PRN Reason Stop Dose Admin Acetaminophen 650 mg 12/21/18 12:16 12/22/18 15:50 Tylenol PO 650 mg Q4H PRN Administration Pain MILD(1-3)/Fever >100.5/BROWN Dextrose 50 ml 12/22/18 08:02 D50w (25gm) Syringe IV PRN PRN Hypoglycemia Heparin Sodium (Porcine) 5,000 unit 12/21/18 22:00 12/27/18 10:12 Heparin SUB-Q 5,000 unit Q12HR LORENA Administration Hydralazine HCl 5 mg 12/26/18 00:36 12/26/18 16:13 Apresoline IV 5 mg Q6H PRN Administration Hypertension Dextrose/Sodium Chloride 1,000 mls @ 75 mls/hr 12/23/18 17:00 12/26/18 04:40 D5/0.45ns IV 75 mls/hr DIRECT LORENA Administration Insulin Human Isoph/Insulin Regular 20 unit 12/22/18 09:00 12/27/18 10:12 Humulin 70/30 SUB-Q 20 unit BIDDIAB LORENA Administration Insulin Human Regular 0 units 12/22/18 09:00 12/27/18 10:13 Humulin R SUB-Q 4 units ACHS LORENA Administration Protocol Levetiracetam 1,000 mg 12/26/18 22:00 12/27/18 10:11 Keppra PO 1,000 mg BID LORENA Administration Lorazepam 1 mg 12/23/18 05:52 Ativan IV Q4H PRN Seizures Metoprolol Tartrate 25 mg 12/22/18 10:00 12/27/18 10:12 Lopressor PO 25 mg DAILY LORENA Administration Ranolazine 500 mg 12/21/18 22:00 12/27/18 10:11 Ranexa Er PO 500 mg BID LORENA Administration Sodium Chloride 10 ml 12/21/18 22:00 12/26/18 21:27 Sodium Chloride Flush Syringe 10 Ml IV 10 ml BID LORENA Administration Sodium Chloride 10 ml 12/21/18 12:13 Sodium Chloride Flush Syringe 10 Ml IV PRN PRN LINE FLUSH Nutrition/Malnutrition Assess - Dietary Evaluation Nutrition/Malnutrition Findings: Nutrition Notes Start: 12/22/18 09:37 Freq: Status: Active Protocol: Document 12/24/18 10:01 KS (Rec: 12/24/18 10:29 KS [id number]) Co-Sign 12/24/18 10:01 LM Nutrition Notes Initial or Follow up Reassessment Current Diagnosis Acute Kidney Injury,Diabetes, Hypertension Other Pertinent Diagnosis Metabolic encephalopathy, dementia, charcot disease Current Diet NPO Labs/Tests POC Glu 171 As of 12/23/18: Na 136 BUN 19 CR 1.3 Glu 280 Pertinent Medications Reviewed Height 5 ft 4 in Weight 87.7 kg [place] Body Weight (kg) 54.54 BMI 33.2 Weight change and time frame wt change noted Weight Status Obese Subjective/Other Information Pt was highly disoriented at time of visit. Pt remains NPO due to failed swallow test. Burn Absent Trauma Absent Minimum of two criteria No #1 Nutrition Diagnosis Inadequate oral intake Diagnosis Progress(for reassessment Continues documentation) Is patient on ventilator? No Is Patient Ambulatory and/or Out of Bed No REE-([facility]-confined to bed) 1640.448 Calculation Used for Recommendations [facility] Additional Notes Protein needs: 82g-98g/kg (1g- 1.2g/kg) Fluid needs: 1kcal/kg Nutrition Intervention Change Diet Order: Recommend NAVAL ENGINEER eval Goal #1 Meet at leat 75% of energy and protein needs Goal #2 Diet advancement Anticipated Discharge Needs: Unable to determine at this time Follow-Up By: 12/27/18 Additional Comments F/U for diet advancement and PO intakes
[2018-12-28] MEDS: HEPARIN 5,000 UNIT/1 ML VIAL SUB-Q SCH ×2 (10:28→21:37)
[2018-12-28] MEDS: METOPROLOL TARTRATE 25 MG TAB PO SCH (10:28)
[2018-12-28] MEDS: levETIRAcetam 500 MG TAB PO SCH ×2 (10:28→21:37)
[2018-12-28] MEDS: INSULIN REGULAR, HUMAN 100 UNITS/1 ML SUB-Q SCH ×4 (10:29→21:38)
[2018-12-28] MEDS: INSULIN NPH/REGULAR 70/30 INJ SUB-Q SCH ×2 (10:29→17:25)
[2018-12-28] MEDS: RANOLAZINE ER 500 MG TAB 12HR PO SCH ×2 (10:30→21:36)
--- NOTE | 2018-12-28 14:14 | Progress Note ---
Assessment and Plan Assessment and plan: 73 YO Female with DM, HTN, Debility, Dementia, Charcot Disease presents to ED for evaluation. 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 Pt has had increased bed bound status, and currently requires time recorder assistance with activities of daily living. EMS notified, and upon arrival the patient was found to be in distress and transported to [facility]. Pt seen and evaluated in ED and found to have DKA with blood glucose above 900, as well as Hypertensive Emergency with BP of 243/111, as well as CHANDRIKA, and Metabolic Encephalopathy. Pt Admitted to ICU and initiated on DKA protocol, as well as IV Hydralazine for blood pressure control. The patient was later transitioned to long-acting insulin off of IV insulin drip. DKA resolved. However, on the evening of 12/22/18 patient developed seizure activity. No rep ort of any seizure disorder history. The patient was treated with Ativan and Keppra IV and transferred to the ICU for closer monitoring. Seizures have resolved and patient is much more alert and interactive. However, patient with intermittent confusion. Hypokalemia - Repleted and corrected Seizure disorder. ? New onset. Check EEG, MRI with no acute findings. Neurology following. Continue Keppra twice a day and Ativan when necessary Toxic metabolic encephalopathy, dementia Patient is alert and oriented. DKA. Resolved. Diabetes is uncontrolled - We'll increase long-acting insulin and add humalog scheduled Acute kidney injury. Etiology secondary to vasomotor nephropathy. Resolved. Follow-up BMP. Accelerated hypertension. Continue antihypertensive medications. DVT prophylaxis - On heparin Disposition - Pending placement History Interval history: Patient was seen and evaluated this morning, patient was alert and oriented. Nom complaints Hospitalist Physical - Physical exam Narrative exam: Not in cardiopulmonary distress. The patient appeared well nourished and normally developed. Vital signs as documented. Head exam is unremarkable. No scleral icterus . Neck is without jugular venous distension, thyromegaly, or carotid bruits. Lungs are clear to auscultation. Cardiac exam reveals regular rate and Rhythm. Abdominal exam reveals normal bowel sounds. Extremities are nonedematous and both femoral and pedal pulses are normal. 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 No focal weakness. skin; sacral decubitus ulcer. - Constitutional Vitals: Temp Pulse Resp BP Pulse Ox 97.5 F L 95 H 18 151/57 95 12/28/18 07:12 12/28/18 10:28 12/28/18 07:12 12/28/18 10:28 12/28/18 04:29 General appearance: Present: no acute distress Results - Labs CBC & Chem 7: 12/27/18 07:06 12/27/18 07:06 Labs: Laboratory Last Values WBC 11.7 K/mm3 (4.5-11.0) H 12/27/18 07:06 RBC 3.58 M/mm3 (3.65-5.03) L 12/27/18 07:06 Hgb 10.3 gm/dl (10.1-14.3) 12/27/18 07:06 Hct 30.5 % (30.3-42.9) 12/27/18 07:06 MCV 85 fl (79-97) 12/27/18 07:06 MCH 29 pg (28-32) 12/27/18 07:06 MCHC 34 % (30-34) 12/27/18 07:06 RDW 14.6 % (13.2-15.2) 12/27/18 07:06 Plt Count 217 K/mm3 (140-440) 12/27/18 07:06 Lymph % (Auto) 14.6 % (13.4-35.0) 12/27/18 07:06 [place] % (Auto) 8.9 % (0.0-7.3) H 12/27/18 07:06 Eos % (Auto) 3.0 % (0.0-4.3) 12/27/18 07:06 Baso % (Auto) 0.4 % (0.0-1.8) 12/27/18 07:06 Lymph # 1.7 K/mm3 (1.2-5.4) 12/27/18 07:06 [place] # 1.0 K/mm3 (0.0-0.8) H 12/27/18 07:06 Eos # 0.4 K/mm3 (0.0-0.4) 12/27/18 07:06 Baso # 0.0 K/mm3 (0.0-0.1) 12/27/18 07:06 Add Manual Diff Complete 12/23/18 04:21 Total Counted 100 12/23/18 04:21 Seg Neutrophils % 73.1 % (40.0-70.0) H 12/27/18 07:06 Seg Neuts % (Manual) 83.0 % (40.0-70.0) H 12/23/18 04:21 Band Neutrophils % 0 % 12/23/18 04:21 Lymphocytes % (Manual) 12.0 % (13.4-35.0) L 12/23/18 04:21 Reactive Lymphs % (Man) 0 % 12/23/18 04:21 Monocytes % (Manual) 2.0 % (0.0-7.3) 12/23/18 04:21 Eosinophils % (Manual) 0 % (0.0-4.3) 12/23/18 04:21 Basophils % (Manual) 1.0 % (0.0-1.8) 12/23/18 04:21 Metamyelocytes % 2.0 % 12/23/18 04:21 Myelocytes % 0 % 12/23/18 04:21 Promyelocytes % 0 % 12/23/18 04:21 Blast Cells % 0 % 12/23/18 04:21 Nucleated RBC % Not Reportable 12/23/18 04:21 Seg Neutrophils # 8.6 K/mm3 (1.8-7.7) H 12/27/18 07:06 Seg Neutrophils # Man 13.0 K/mm3 (1.8-7.7) H 12/23/18 04:21 Band Neutrophils # 0.0 K/mm3 12/23/18 04:21 Lymphocytes # (Manual) 1.9 K/mm3 (1.2-5.4) 12/23/18 04:21 Abs React Lymphs (Man) 0.0 K/mm3 12/23/18 04:21 Monocytes # (Manual) 0.3 K/mm3 (0.0-0.8) 12/23/18 04:21 Eosinophils # (Manual) 0.0 K/mm3 (0.0-0.4) 12/23/18 04:21 Basophils # (Manual) 0.2 K/mm3 (0.0-0.1) H 12/23/18 04:21 Metamyelocytes # 0.3 K/mm3 12/23/18 04:21 Myelocytes # 0.0 K/mm3 12/23/18 04:21 Promyelocytes # 0.0 K/mm3 12/23/18 04:21 Blast Cells # 0.0 K/mm3 12/23/18 04:21 WBC Morphology Not Reportable 12/23/18 04:21 Hypersegmented Neuts Not Reportable 12/23/18 04:21 Hyposegmented Neuts Not Reportable 12/23/18 04:21 Hypogranular Neuts Not Reportable 12/23/18 04:21 Smudge Cells Not Reportable 12/23/18 04:21 Toxic Granulation Not Reportable 12/23/18 04:21 Toxic Vacuolation Not Reportable 12/23/18 04:21 Dohle Bodies Not Reportable 12/23/18 04:21 Pelger-Huet Anomaly Not Reportable 12/23/18 04:21 Saul Rods Not Reportable 12/23/18 04:21 Platelet Estimate Consistent w auto 12/23/18 04:21 Clumped Platelets Not Reportable 12/23/18 04:21 Plt Clumps, EDTA Not Reportable 12/23/18 04:21 Large Platelets Not Reportable 12/23/18 04:21 Giant Platelets Not Reportable 12/23/18 04:21 Platelet Satelliting Not Reportable 12/23/18 04:21 Plt Morphology Comment Not Reportable 12/23/18 04:21 RBC Morphology Normal 12/23/18 04:21 Dimorphic RBCs Not Reportable 12/23/18 04:21 Polychromasia Not Reportable 12/23/18 04:21 Hypochromasia Not Reportable 12/23/18 04:21 Poikilocytosis Not Reportable 12/23/18 04:21 Anisocytosis Not Reportable 12/23/18 04:21 Microcytosis Not Reportable 12/23/18 04:21 Macrocytosis Not Reportable 12/23/18 04:21 Spherocytes Not Reportable 12/23/18 04:21 Pappenheimer Bodies Not Reportable 12/23/18 04:21 Sickle Cells Not Reportable 12/23/18 04:21 Target Cells Not Reportable 12/23/18 04:21 Tear Drop Cells Not Reportable 12/23/18 04:21 Ovalocytes Not Reportable 12/23/18 04:21 Helmet Cells Not Reportable 12/23/18 04:21 [place] Bodies Not Reportable 12/23/18 04:21 [place] Rings Not Reportable 12/23/18 04:21 Evi Cells Not Reportable 12/23/18 04:21 Bite Cells Not Reportable 12/23/18 04:21 Crenated Cell Not Reportable 12/23/18 04:21 Elliptocytes Not Reportable 12/23/18 04:21 Acanthocytes (Spur) Not Reportable 12/23/18 04:21 Rouleaux Not Reportable 12/23/18 04:21 Hemoglobin C Crystals Not Reportable 12/23/18 04:21 Schistocytes Not Reportable 12/23/18 04:21 Malaria parasites Not Reportable 12/23/18 04:21 Sid Bodies Not Reportable 12/23/18 04:21 Hem Pathologist Commnt No 12/23/18 04:21 VBG pH 7.299 (7.320-7.420) L 12/21/18 09:24 Sodium 134 mmol/L (137-145) L 12/27/18 07:06 Potassium 3.8 mmol/L (3.6-5.0) 12/27/18 07:06 Chloride 100.2 mmol/L (98-107) 12/27/18 07:06 Carbon Dioxide 25 mmol/L (22-30) 12/27/18 07:06 Anion Gap 13 mmol/L 12/27/18 07:06 BUN 19 mg/dL (7-17) H 12/27/18 07:06 Creatinine 1.1 mg/dL (0.7-1.2) 12/27/18 07:06 Estimated GFR 49 ml/min 12/27/18 07:06 BUN/Creatinine Ratio 17 % 12/27/18 07:06 Glucose 275 mg/dL (65-100) H 12/27/18 07:06 POC Glucose 393 (70-105) H 12/28/18 12:54 Calcium 8.2 mg/dL (8.4-10.2) L 12/27/18 07:06 Phosphorus 2.20 mg/dL (2.5-4.5) L 12/21/18 13:33 Magnesium 1.50 mg/dL (1.7-2.3) L 12/21/18 13:33 Total Bilirubin 0.30 mg/dL (0.1-1.2) 12/22/18 04:55 AST 16 units/L (5-40) 12/22/18 04:55 ALT 8 units/L (7-56) 12/22/18 04:55 Alkaline Phosphatase 124 units/L (35-129) 12/22/18 04:55 Total Protein 6.9 g/dL (6.3-8.2) 12/22/18 04:55 Albumin 3.4 g/dL (3.9-5) L 12/22/18 04:55 Albumin/Globulin Ratio 1.0 % 12/22/18 04:55 Urine Color Yellow (Yellow) 12/21/18 Unknown Urine Turbidity Clear (Clear) 12/21/18 Unknown Urine pH 5.0 (5.0-7.0) 12/21/18 Unknown Ur Specific [place] 1.018 (1.003-1.030) 12/21/18 Unknown Urine Protein >500 mg/dL (Negative) 12/21/18 Unknown Urine Glucose (UA) >=500 mg/dL (Negative) 12/21/18 Unknown Urine Ketones Tr mg/dL (Negative) 12/21/18 Unknown Urine Blood Mod (Negative) 12/21/18 Unknown Urine Nitrite Neg (Negative) 12/21/18 Unknown Urine Bilirubin Neg (Negative) 12/21/18 Unknown Urine Urobilinogen < 2.0 mg/dL (<2.0) 12/21/18 Unknown Ur Leukocyte Esterase Neg (Negative) 12/21/18 Unknown Urine WBC (Auto) 1.0 /HPF (0.0-6.0) 12/21/18 Unknown Urine RBC (Auto) 1.0 /HPF (0.0-6.0) 12/21/18 Unknown Urine Mucus Few /HPF 12/21/18 09:11 Active Medications - Current Medications Current Medications: Generic Name Dose Route Start Last Admin Trade Name Freq PRN Reason Stop Dose Admin Acetaminophen 650 mg 12/21/18 12:16 12/22/18 15:50 Tylenol PO 650 mg Q4H PRN Administration Pain MILD(1-3)/Fever >100.5/BROWN Dextrose 50 ml 12/22/18 08:02 D50w (25gm) Syringe IV PRN PRN Hypoglycemia Heparin Sodium (Porcine) 5,000 unit 12/21/18 22:00 12/28/18 10:28 Heparin SUB-Q 5,000 unit Q12HR LORENA Administration Hydralazine HCl 5 mg 12/26/18 00:36 12/26/18 16:13 Apresoline IV 5 mg Q6H PRN Administration Hypertension Insulin Human Isoph/Insulin Regular 20 unit 12/22/18 09:00 12/28/18 10:29 Humulin 70/30 SUB-Q 20 unit BIDDIAB LORENA Administration Insulin Human Regular 0 units 12/22/18 09:00 12/28/18 12:47 Humulin R SUB-Q 8 units ACHS LORENA Administration Protocol Levetiracetam 1,000 mg 12/26/18 22:00 12/28/18 10:28 Keppra PO 1,000 mg BID LORENA Administration Lorazepam 1 mg 12/23/18 05:52 Ativan IV Q4H PRN Seizures Metoprolol Tartrate 25 mg 12/22/18 10:00 12/28/18 10:28 Lopressor PO 25 mg DAILY LORENA Administration Ranolazine 500 mg 12/21/18 22:00 12/28/18 10:30 Ranexa Er PO 500 mg BID LORENA Administration Sodium Chloride 10 ml 12/21/18 22:00 12/28/18 10:30 Sodium Chloride Flush Syringe 10 Ml IV 10 ml BID LORENA Administration Sodium Chloride 10 ml 12/21/18 12:13 Sodium Chloride Flush Syringe 10 Ml IV PRN PRN LINE FLUSH Nutrition/Malnutrition Assess - Dietary Evaluation Nutrition/Malnutrition Findings: Nutrition Notes Start: 12/22/18 09:37 Freq: Status: Active Protocol: Document 12/27/18 11:29 OH (Rec: 12/27/18 11:38 OH [id number]) Nutrition Notes Initial or Follow up Reassessment Current Diagnosis Acute Kidney Injury,Diabetes, Hypertension Other Pertinent Diagnosis Metabolic encephalopathy, dementia, charcot disease Labs/Tests Na 134 GLU 275 k+ 3.8 GFR 49 Pertinent Medications heparin Humulin 70/30 Humulin R Height 5 ft 4 in Weight 87.7 kg [place] Body Weight (kg) 54.54 BMI 33.2 Subjective/Other Information f/u: Breaklfast tray on table w/o being touched. Per pt she is tired. Pt. lying on her side in the bed. Pt. not very interactive in answering bond underwriter's questions. Pt. verbalized she has a PCP who manages her dm. Pt. reports she consumes mainly diet coke/ water at home. Penology Professor would suspect due to DKA that pt consuming more diet soda than water. Pt. on pureed/cardiac diet per SLT. Her son resides with her. Per pt they eat out frequently. Pt. doesn't appear to be interested in dm education. GI Symptoms None Current % PO Poor (25-49%) Minimum of two criteria No #1 Nutrition Diagnosis Inadequate oral intake Diagnosis Progress(for reassessment Continues documentation) Is patient on ventilator? No Is Patient Ambulatory and/or Out of Bed No REE-([facility]-confined to bed) 1640.448 Calculation Used for Recommendations [facility] Additional Notes Protein needs: 82g-98g/kg (1g- 1.2g/kg) Fluid needs: 1kcal/kg Nutrition Intervention Change Diet Order: Cont preed/cardiac per [facility]T recommendation Teaching Recipient Patient Teaching Methods Discussion,Handout Response to Teaching Refuses to learn Education Handouts Provided Provided DM handout listing carb sources and rec types. Pt . non reactive to handout and has no questions at this time. Barriers to Learning Cognitive/Verbal,Motivation, Physical,Age related,Emotional ,Financial,Environmental Goal #1 Meet at leat 75% of energy and protein needs Anticipated Discharge Needs: Consistent CHO Follow-Up By: 12/31/18 Additional Comments F/U for po intake
[2018-12-28] MEDS: INSULIN LISPRO 100 UNIT/ML SUB-Q SCH (17:24)
[2018-12-29] MEDS: INSULIN LISPRO 100 UNIT/ML SUB-Q SCH ×3 (08:36→17:02)
[2018-12-29] MEDS: INSULIN NPH/REGULAR 70/30 INJ SUB-Q SCH ×2 (08:37→17:02)
[2018-12-29] MEDS: INSULIN REGULAR, HUMAN 100 UNITS/1 ML SUB-Q SCH ×4 (08:37→22:08)
[2018-12-29] MEDS: HEPARIN 5,000 UNIT/1 ML VIAL SUB-Q SCH ×2 (09:35→22:10)
[2018-12-29] MEDS: levETIRAcetam 500 MG TAB PO SCH ×2 (09:35→22:10)
[2018-12-29] MEDS: METOPROLOL TARTRATE 25 MG TAB PO SCH (09:35)
[2018-12-29] MEDS: RANOLAZINE ER 500 MG TAB 12HR PO SCH ×2 (09:35→22:09)
[2018-12-29] MEDS: amLODIPine 10 MG TAB PO SCH (09:35)
--- NOTE | 2018-12-29 10:43 | Progress Note ---
Assessment and Plan Assessment and plan: 73 YO Female with DM, HTN, Debility, Dementia, Charcot Disease presents to ED for evaluation. 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 Pt experienced a fall the day ASSAYER HELPER from a standing position striking the back of her head without apparent injury. Pt has had increased bed bound status, and currently requires full time staff interpreter assistance with activities of daily living. EMS notified, and upon arrival the patient was found to be in distress and transported to [facility]. Pt seen and evaluated in ED and found to have DKA with blood glucose above 900, as well as Hypertensive Emergency with BP of 243/111, as well as CHANDRIKA, and Metabolic Encephalopathy. Pt Admitted to ICU and initiated on DKA protocol, as well as IV Hydralazine for blood pressure control. The patient was later transitioned to long-acting insulin off of IV insulin drip. DKA resolved. However, on the evening of 12/22/18 patient developed seizure activity. No rep ort of any seizure disorder history. The patient was treated with Ativan and Keppra IV and transferred to the ICU for closer monitoring. Seizures have resolved and patient is much more alert and interactive. However, patient with intermittent confusion. Hypokalemia - Repleted and corrected Seizure disorder. ? New onset. Check EEG, MRI with no acute findings. Neurology following. Continue Keppra twice a day and Ativan when necessary Toxic metabolic encephalopathy, dementia Patient is alert and oriented. DKA. Resolved. Diabetes is uncontrolled - We'll increase long-acting insulin and add humalog scheduled Acute kidney injury. Etiology secondary to vasomotor nephropathy. Resolved. Follow-up BMP. Accelerated hypertension - was on metoprolol and added amlodipine - Will follow [facility] DVT prophylaxis - On heparin Disposition - Pending placement History Interval history: Patient was seen and evaluated this morning, patient was alert and oriented. No new complaints Hospitalist Physical - Physical exam Narrative exam: Not in cardiopulmonary distress. The patient appeared well nourished and normally developed. Vital signs as documented. Head exam is unremarkable. No scleral icterus . Neck is without jugular venous distension, thyromegaly, or carotid bruits. Lungs are clear to auscultation. Cardiac exam reveals regular rate and Rhythm. Abdominal exam reveals normal bowel sounds. Extremities are nonedematous and both femoral and pedal pulses are normal. CHIPPER FEEDER: Alert and oriented 3. No focal weakness. skin; sacral decubitus ulcer. - Constitutional Vitals: Temp Pulse Resp BP Pulse Ox 98.2 F 87 18 174/63 95 12/29/18 07:30 12/29/18 10:00 12/29/18 07:30 12/29/18 07:30 12/29/18 04:43 General appearance: Present: no acute distress Results - Labs CBC & Chem 7: 12/27/18 07:06 12/27/18 07:06 Labs: Laboratory Last Values WBC 11.7 K/mm3 (4.5-11.0) H 12/27/18 07:06 RBC 3.58 M/mm3 (3.65-5.03) L 12/27/18 07:06 Hgb 10.3 gm/dl (10.1-14.3) 12/27/18 07:06 Hct 30.5 % (30.3-42.9) 12/27/18 07:06 MCV 85 fl (79-97) 12/27/18 07:06 MCH 29 pg (28-32) 12/27/18 07:06 MCHC 34 % (30-34) 12/27/18 07:06 RDW 14.6 % (13.2-15.2) 12/27/18 07:06 Plt Count 217 K/mm3 (140-440) 12/27/18 07:06 Lymph % (Auto) 14.6 % (13.4-35.0) 12/27/18 07:06 [place] % (Auto) 8.9 % (0.0-7.3) H 12/27/18 07:06 Eos % (Auto) 3.0 % (0.0-4.3) 12/27/18 07:06 Baso % (Auto) 0.4 % (0.0-1.8) 12/27/18 07:06 Lymph # 1.7 K/mm3 (1.2-5.4) 12/27/18 07:06 [place] # 1.0 K/mm3 (0.0-0.8) H 12/27/18 07:06 Eos # 0.4 K/mm3 (0.0-0.4) 12/27/18 07:06 Baso # 0.0 K/mm3 (0.0-0.1) 12/27/18 07:06 Add Manual Diff Complete 12/23/18 04:21 Total Counted 100 12/23/18 04:21 Seg Neutrophils % 73.1 % (40.0-70.0) H 12/27/18 07:06 Seg Neuts % (Manual) 83.0 % (40.0-70.0) H 12/23/18 04:21 Band Neutrophils % 0 % 12/23/18 04:21 Lymphocytes % (Manual) 12.0 % (13.4-35.0) L 12/23/18 04:21 Reactive Lymphs % (Man) 0 % 12/23/18 04:21 Monocytes % (Manual) 2.0 % (0.0-7.3) 12/23/18 04:21 Eosinophils % (Manual) 0 % (0.0-4.3) 12/23/18 04:21 Basophils % (Manual) 1.0 % (0.0-1.8) 12/23/18 04:21 Metamyelocytes % 2.0 % 12/23/18 04:21 Myelocytes % 0 % 12/23/18 04:21 Promyelocytes % 0 % 12/23/18 04:21 Blast Cells % 0 % 12/23/18 04:21 Nucleated RBC % Not Reportable 12/23/18 04:21 Seg Neutrophils # 8.6 K/mm3 (1.8-7.7) H 12/27/18 07:06 Seg Neutrophils # Man 13.0 K/mm3 (1.8-7.7) H 12/23/18 04:21 Band Neutrophils # 0.0 K/mm3 12/23/18 04:21 Lymphocytes # (Manual) 1.9 K/mm3 (1.2-5.4) 12/23/18 04:21 Abs React Lymphs (Man) 0.0 K/mm3 12/23/18 04:21 Monocytes # (Manual) 0.3 K/mm3 (0.0-0.8) 12/23/18 04:21 Eosinophils # (Manual) 0.0 K/mm3 (0.0-0.4) 12/23/18 04:21 Basophils # (Manual) 0.2 K/mm3 (0.0-0.1) H 12/23/18 04:21 Metamyelocytes # 0.3 K/mm3 12/23/18 04:21 Myelocytes # 0.0 K/mm3 12/23/18 04:21 Promyelocytes # 0.0 K/mm3 12/23/18 04:21 Blast Cells # 0.0 K/mm3 12/23/18 04:21 WBC Morphology Not Reportable 12/23/18 04:21 Hypersegmented Neuts Not Reportable 12/23/18 04:21 Hyposegmented Neuts Not Reportable 12/23/18 04:21 Hypogranular Neuts Not Reportable 12/23/18 04:21 Smudge Cells Not Reportable 12/23/18 04:21 Toxic Granulation Not Reportable 12/23/18 04:21 Toxic Vacuolation Not Reportable 12/23/18 04:21 Dohle Bodies Not Reportable 12/23/18 04:21 Pelger-Huet Anomaly Not Reportable 12/23/18 04:21 Saul Rods Not Reportable 12/23/18 04:21 Platelet Estimate Consistent w auto 12/23/18 04:21 Clumped Platelets Not Reportable 12/23/18 04:21 Plt Clumps, EDTA Not Reportable 12/23/18 04:21 Large Platelets Not Reportable 12/23/18 04:21 Giant Platelets Not Reportable 12/23/18 04:21 Platelet Satelliting Not Reportable 12/23/18 04:21 Plt Morphology Comment Not Reportable 12/23/18 04:21 RBC Morphology Normal 12/23/18 04:21 Dimorphic RBCs Not Reportable 12/23/18 04:21 Polychromasia Not Reportable 12/23/18 04:21 Hypochromasia Not Reportable 12/23/18 04:21 Poikilocytosis Not Reportable 12/23/18 04:21 Anisocytosis Not Reportable 12/23/18 04:21 Microcytosis Not Reportable 12/23/18 04:21 Macrocytosis Not Reportable 12/23/18 04:21 Spherocytes Not Reportable 12/23/18 04:21 Pappenheimer Bodies Not Reportable 12/23/18 04:21 Sickle Cells Not Reportable 12/23/18 04:21 Target Cells Not Reportable 12/23/18 04:21 Tear Drop Cells Not Reportable 12/23/18 04:21 Ovalocytes Not Reportable 12/23/18 04:21 Helmet Cells Not Reportable 12/23/18 04:21 [place] Bodies Not Reportable 12/23/18 04:21 [place] Rings Not Reportable 12/23/18 04:21 [place] Cells Not Reportable 12/23/18 04:21 Bite Cells Not Reportable 12/23/18 04:21 Crenated Cell Not Reportable 12/23/18 04:21 Elliptocytes Not Reportable 12/23/18 04:21 Acanthocytes (Spur) Not Reportable 12/23/18 04:21 Rouleaux Not Reportable 12/23/18 04:21 Hemoglobin C Crystals Not Reportable 12/23/18 04:21 Schistocytes Not Reportable 12/23/18 04:21 Malaria parasites Not Reportable 12/23/18 04:21 Sid Bodies Not Reportable 12/23/18 04:21 Hem Pathologist Commnt No 12/23/18 04:21 VBG pH 7.299 (7.320-7.420) L 12/21/18 09:24 Sodium 134 mmol/L (137-145) L 12/27/18 07:06 Potassium 3.8 mmol/L (3.6-5.0) 12/27/18 07:06 Chloride 100.2 mmol/L (98-107) 12/27/18 07:06 Carbon Dioxide 25 mmol/L (22-30) 12/27/18 07:06 Anion Gap 13 mmol/L 12/27/18 07:06 BUN 19 mg/dL (7-17) H 12/27/18 07:06 Creatinine 1.1 mg/dL (0.7-1.2) 12/27/18 07:06 Estimated GFR 49 ml/min 12/27/18 07:06 BUN/Creatinine Ratio 17 % 12/27/18 07:06 Glucose 275 mg/dL (65-100) H 12/27/18 07:06 POC Glucose 166 (70-105) H 12/29/18 07:38 Calcium 8.2 mg/dL (8.4-10.2) L 12/27/18 07:06 Phosphorus 2.20 mg/dL (2.5-4.5) L 12/21/18 13:33 Magnesium 1.50 mg/dL (1.7-2.3) L 12/21/18 13:33 Total Bilirubin 0.30 mg/dL (0.1-1.2) 12/22/18 04:55 AST 16 units/L (5-40) 12/22/18 04:55 ALT 8 units/L (7-56) 12/22/18 04:55 Alkaline Phosphatase 124 units/L (35-129) 12/22/18 04:55 Total Protein 6.9 g/dL (6.3-8.2) 12/22/18 04:55 Albumin 3.4 g/dL (3.9-5) L 12/22/18 04:55 Albumin/Globulin Ratio 1.0 % 12/22/18 04:55 Urine Color Yellow (Yellow) 12/21/18 Unknown Urine Turbidity Clear (Clear) 12/21/18 Unknown Urine pH 5.0 (5.0-7.0) 12/21/18 Unknown Ur Specific [place] 1.018 (1.003-1.030) 12/21/18 Unknown Urine Protein >500 mg/dL (Negative) 12/21/18 Unknown Urine Glucose (UA) >=500 mg/dL (Negative) 12/21/18 Unknown Urine Ketones Tr mg/dL (Negative) 12/21/18 Unknown Urine Blood Mod (Negative) 12/21/18 Unknown Urine Nitrite Neg (Negative) 12/21/18 Unknown Urine Bilirubin Neg (Negative) 12/21/18 Unknown Urine Urobilinogen < 2.0 mg/dL (<2.0) 12/21/18 Unknown Ur Leukocyte Esterase Neg (Negative) 12/21/18 Unknown Urine WBC (Auto) 1.0 /HPF (0.0-6.0) 12/21/18 Unknown Urine RBC (Auto) 1.0 /HPF (0.0-6.0) 12/21/18 Unknown Urine Mucus Few /HPF 12/21/18 09:11 Active Medications - Current Medications Current Medications: Generic Name Dose Route Start Last Admin Trade Name Freq PRN Reason Stop Dose Admin Acetaminophen 650 mg 12/21/18 12:16 12/22/18 15:50 Tylenol PO 650 mg Q4H PRN Administration Pain MILD(1-3)/Fever >100.5/BROWN Amlodipine Besylate 10 mg 12/29/18 10:00 12/29/18 09:35 Norvasc PO 10 mg QDAY LORENA Administration Dextrose 50 ml 12/22/18 08:02 D50w (25gm) Syringe IV PRN PRN Hypoglycemia Heparin Sodium (Porcine) 5,000 unit 12/21/18 22:00 12/29/18 09:35 Heparin SUB-Q 5,000 unit Q12HR LORENA Administration Hydralazine HCl 5 mg 12/26/18 00:36 12/26/18 16:13 Apresoline IV 5 mg Q6H PRN Administration Hypertension Insulin Human Isoph/Insulin Regular 25 unit 12/28/18 14:18 12/29/18 08:37 Humulin 70/30 SUB-Q 25 unit BIDDIAB LORENA Administration Insulin Human Lispro 10 unit 12/28/18 16:30 12/29/18 08:36 Humalog SUB-Q 10 unit AC LORENA Administration Protocol Insulin Human Regular 0 units 12/22/18 09:00 12/29/18 08:37 Humulin R SUB-Q 2 units ACHS LORENA Administration Protocol Levetiracetam 1,000 mg 12/26/18 22:00 12/29/18 09:35 Keppra PO 1,000 mg BID LORENA Administration Lorazepam 1 mg 12/23/18 05:52 Ativan IV Q4H PRN Seizures Metoprolol Tartrate 25 mg 12/22/18 10:00 12/29/18 09:35 Lopressor PO 25 mg DAILY LORENA Administration Ranolazine 500 mg 12/21/18 22:00 12/29/18 09:35 Ranexa Er PO 500 mg BID LORENA Administration Sodium Chloride 10 ml 12/21/18 22:00 12/29/18 09:35 Sodium Chloride Flush Syringe 10 Ml IV 10 ml BID LORENA Administration Sodium Chloride 10 ml 12/21/18 12:13 Sodium Chloride Flush Syringe 10 Ml IV PRN PRN LINE FLUSH Nutrition/Malnutrition Assess - Dietary Evaluation Nutrition/Malnutrition Findings: Nutrition Notes Start: 12/22/18 09:37 Freq: Status: Active Protocol: Document 12/27/18 11:29 OH (Rec: 12/27/18 11:38 OH [id number]) Nutrition Notes Initial or Follow up Reassessment Current Diagnosis Acute Kidney Injury,Diabetes, Hypertension Other Pertinent Diagnosis Metabolic encephalopathy, dementia, charcot disease Labs/Tests Na 134 GLU 275 k+ 3.8 GFR 49 Pertinent Medications heparin Humulin 70/30 Humulin R Height 5 ft 4 in Weight 87.7 kg [place] Body Weight (kg) 54.54 BMI 33.2 Subjective/Other Information f/u: Breaklfast tray on table w/o being touched. Per pt she is tired. Pt. lying on her side in the bed. Pt. not very interactive in answering director underwriter sales's questions. Pt. verbalized she has a PCP who manages her dm. Pt. reports she consumes mainly diet coke/ water at home. Technical Project Coordinator would suspect due to DKA that pt consuming more diet soda than water. Pt. on pureed/cardiac diet per SLT. Her son resides with her. Per pt they eat out frequently. Pt. doesn't appear to be interested in dm education. GI Symptoms None Current % PO Poor (25-49%) Minimum of two criteria No #1 Nutrition Diagnosis Inadequate oral intake Diagnosis Progress(for reassessment Continues documentation) Is patient on ventilator? No Is Patient Ambulatory and/or Out of Bed No REE-([facility]-confined to bed) [phone] Calculation Used for Recommendations [facility] Additional Notes Protein needs: 82g-98g/kg (1g- 1.2g/kg) Fluid needs: 1kcal/kg Nutrition Intervention Change Diet Order: Cont preed/cardiac per SLT recommendation Teaching Recipient Patient Teaching Methods Discussion,Handout Response to Teaching Refuses to learn Education Handouts Provided Provided DM handout listing carb sources and rec types. Pt . non reactive to handout and has no questions at this time. Barriers to Learning Cognitive/Verbal,Motivation, Physical,Age related,Emotional ,Financial,Environmental Goal #1 Meet at leat 75% of energy and protein needs Anticipated Discharge Needs: Consistent CHO Follow-Up By: 12/31/18 Additional Comments F/U for po intake
[2018-12-29] MEDS: ACETAMINOPHEN 325 MG TAB PO PRN (11:09)
[2018-12-30 08:12] VITALS: BP 163/63
[2018-12-30] MEDS: INSULIN LISPRO 100 UNIT/ML SUB-Q SCH ×2 (09:00→12:07)
[2018-12-30] MEDS: INSULIN NPH/REGULAR 70/30 INJ SUB-Q SCH (09:00)
[2018-12-30] MEDS: INSULIN REGULAR, HUMAN 100 UNITS/1 ML SUB-Q SCH ×2 (09:28→12:42)
[2018-12-30] MEDS: amLODIPine 10 MG TAB PO SCH (09:30)
[2018-12-30] MEDS: levETIRAcetam 500 MG TAB PO SCH (09:30)
[2018-12-30] MEDS: METOPROLOL TARTRATE 25 MG TAB PO SCH (09:30)
[2018-12-30] MEDS: RANOLAZINE ER 500 MG TAB 12HR PO SCH (09:31)
[2018-12-30] MEDS: HEPARIN 5,000 UNIT/1 ML VIAL SUB-Q SCH (09:32)
--- NOTE | 2018-12-30 09:55 | Discharge Summary ---
Providers - Providers Date of Admission: 12/21/18 12:13 Attending physician: NACHO LOMAS MD 12/22/18 17:04 Occupational Therapy Evaluate and Treat [CONS] Routine Comment: Reason For Exam: falls Physical Therapy Evaluation and Treat [CONS] Routine Comment: Reason For Exam: falls 12/23/18 05:03 Consult to Physician [CONS] Routine Comment: Consulting Provider: DANIEL ZABALA Physician Instructions: Reason For Exam: sz 12/23/18 16:51 Speech Therapy Evaluation and Treat [CONS] Routine Reason For Exam: failed bedside screen 12/26/18 09:56 Physical Therapy Evaluation and Treat [CONS] Routine Comment: Reason For Exam: falls [facility] Reason for admission: DKA, seizure Condition: Stable Pertinent studies: MRI CT head, cervical area Hospital course: 73 YO Female with DM, HTN, Debility, Dementia, Charcot Disease presents to ED for evaluation. 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 Pt experienced a fall the day TURN SEWER from a standing position striking the back of her head without apparent injury. Patient has had increased bed bound status, and currently requires inspector timers assistance with activities of daily living. EMS notified, and upon arrival the patient was found to be in distress and transported to [facility]. Patient seen and evaluated in ED and found to have DKA with blood glucose above 900, as well as Hypertensive Emergency with BP of 243/111, as well as CHANDRIKA, and Metabolic Encephalopathy. Pt Admitted to ICU and initiated on DKA protocol, as well as IV Hydralazine for blood pressure control. The patient was later transitioned to long-acting insulin off of IV insulin drip. DKA resolved. However, on the evening of 12/22/18 patient developed seizure activity. No report of any seizure disorder history. The patient was treated with Ativan and Keppra IV and transferred to the ICU for closer monitoring. Seizures have resolved and patient is much more alert and interactive. However, patient with intermittent confusion. Hypokalemia; Repleted and corrected Seizure disorder; New onset; MRI with no acute findings. Neurology following. Continue Keppra twice a day. Toxic metabolic encephalopathy; resolved. Has some component of dementia. Currently Patient is alert and oriented. DKA; treated according to DKA protocol and Resolved. Diabetes is uncontrolled; patient is on long acting insulin and will follow with PCP. Advised about medication adherence. Acute kidney injury; etiology secondary to vasomotor nephropathy. Resolved. Accelerated hypertension; patient is on metoprolol and amlodipine. Patient was evaluated by PTOT and recommended to rehab and patient discharged to rehab facility. Patient was seen face to face for more than 30 minutes before discharge. Disposition: [id number]/[place]-03 SNF [facility] CERT Time spent for discharge: 32 minutes - Discharge Diagnoses (1) CHANDRIKA (acute kidney injury) Status: Acute (2) Acidosis Status: Acute (3) Confusion Status: Acute (4) DKA (diabetic ketoacidoses) Status: Acute Qualifiers: Diabetes mellitus type: type 1 (5) Dehydration Status: Acute (6) Fall Status: Acute (7) Hyperglycemia due to type 2 diabetes mellitus Status: Acute (8) Hypertensive emergency Status: Acute (9) Metabolic encephalopathy Status: Acute (10) Tachycardia Status: Acute (11) Sepsis Status: Acute (12) Urinary tract infection Status: Acute Core Measure Documentation - Palliative Care Palliative Care/ Comfort Measures: Not Applicable - Core Measures Any of the following diagnoses?: none Exam - Physical Exam Narrative exam: Not in cardiopulmonary distress. The patient appeared well nourished and normally developed. Vital signs as documented. Head exam is unremarkable. No scleral icterus . Neck is without jugular venous distension, thyromegaly, or carotid bruits. Lungs are clear to auscultation. Cardiac exam reveals regular rate and Rhythm. Abdominal exam reveals normal bowel sounds. Extremities are nonedematous and both femoral and pedal pulses are normal. HAND DEVELOPER: Alert and oriented 3. No focal weakness. skin; sacral decubitus ulcer. - Constitutional Vitals: Temp Pulse Resp BP Pulse Ox 98.3 F 92 H 18 163/63 96 12/30/18 07:31 12/30/18 09:30 12/30/18 07:31 12/30/18 09:30 12/30/18 07:31 Plan Activity: advance as tolerated Weight Bearing Status: Full Weight Bearing Diet: low salt, diabetic Follow up with: ARIANNE GALLARDO MD [Primary Care Provider] - 7 Days Prescriptions: Insulin Lispro Protamin/Lispro [HumaLOG Mix 75-25 Kwikpen] 20 units SQ BID #3 insuln.pen levETIRAcetam [Keppra TAB] 1,000 mg PO BID #60 tablet amLODIPine [Norvasc] 10 mg PO QDAY #30 tablet
== END 2018-12-30 14:01 | DRG 871 ==
LOC: ED 08:34 → CC1 12:13 → 4A 12-22 11:17 → CC1 12-23 06:01 → IMCU 12-23 17:36 → 4A 12-25 20:58
PROVIDERS: ADMIT Internal Medicine; ATTEND Internal Medicine
DX: A41.9 Sepsis, unspecified organism (principal); E10.10 Type 1 diabetes mellitus with ketoacidosis without coma; N17.0 Acute kidney failure with tubular necrosis; G92 Toxic encephalopathy; I16.1 Hypertensive emergency; N39.0 Urinary tract infection, site not specified; I67.4 Hypertensive encephalopathy; E87.6 Hypokalemia; I10 Essential (primary) hypertension; F03.90 Unspecified dementia, unspecified severity, without behavioral disturbance, psychotic disturbance, mood disturbance, and anxiety; G40.909 Epilepsy, unspecified, not intractable, without status epilepticus; E86.0 Dehydration; Z90.49 Acquired absence of other specified parts of digestive tract; Z98.51 Tubal ligation status; Z82.49 Family history of ischemic heart disease and other diseases of the circulatory system; Z79.4 Long term (current) use of insulin; Z83.3 Family history of diabetes mellitus; Z88.5 Allergy status to narcotic agent; Z91.041 Radiographic dye allergy status; Z79.899 Other long term (current) drug therapy
CPT/HCPCS: 36415; 70450; 70551; 71045; 72100; 72125; 72131; 72170; 80048; 80053; 81001; 82805; 82947; 82962; 83735; 84100; 85007; 85025; 87040; 87086; 93005; 93010; 94760; 95819; G0378; J0360; J0456; J1644; J1815; J1953; J1956; J2060; J3480; J7030; J7050